=== PATIENT | female | born 1930 | race Caucasian/White ===

== ENCOUNTER 2019-03-21 08:53 | Inpatient (IN) | payer MEDICARE, OTHER ==
[2019-03-21] VITALS (7 sets, daily range): BP systolic 115–160; BP diastolic 59–82
[2019-03-21] MEDS ORDERED: LEXAPRO20 MG PO (09:00)
[2019-03-21] MEDS ORDERED: BACTRIM 400-801 TAB PO (09:00)
--- NOTE | 2019-03-21 09:07 | NUR ---
PT UNABLE TO ANSWER SUICIDE RISK SCREENING QUESTIONS.
--- NOTE | 2019-03-21 09:50 | NUR ---
CAREGIVER EXPRESSED THAT PT NEEDED TO VOID. FRACTURE BED MCKEON PROVIDED AND POSITIONED UNDER PT. CAREGIVER THEN REPORTED THAT SHE WOULD NOT VOID ON BED MCKEON AND REQUESTED IN AND OUT CATHETER. EDP NOTIFIED. ORDER FOR IN AND OUT CATHETER PLACED.
--- NOTE | 2019-03-21 11:05 | NUR ---
IN AND OUT CATHETER ATTEMPTED, NO URINE OUTPUT NOTED. EDP NOTIFIED.
[2019-03-21 11:53] LABS: BASOPHILS 0.2 % (0-2); EOSINOPHILS 0 % (0-7); HEMATOCRIT 37.5 % (36.0-48.0); HEMOGLOBIN 12.7 g/dL (12-16); IMMATURE GRANULOCYTES 0.5 % (0-5); MCH 29.7 pg (26.0-34.0); MCHC 33.9 g/dL (31.0-37.0); MCV 87.8 fL (80.0-100.0); MEAN PLATELET VOLUME 9.5 fL (7.4-10.4); MONOCYTES 5.4 % (2-11); NEUTROPHILS 88.9 % (40-80); PLATELET COUNT 278 10x3/uL (130-400); RBC 4.27 10x6/uL (4.00-5.40); RDW 15.9 % (11.5-14.5); WBC 12.1 10x3/uL (4.8-10.8)
[2019-03-21 12:05] LABS: ALBUMIN 3.1 g/dL (3.4-5.0); BILIRUBIN - TOTAL 0.36 mg/dL (0.2-1.3); CALCIUM 9.1 mg/dL (8.5-10.1); CARBON DIOXIDE 27.3 mmol/L (21.0-32.0); CREATININE - SERUM 0.9 mg/dL (0.6-1.3); POTASSIUM - SERUM 4.3 mmol/L (3.5-5.1); PROTEIN - SERUM 7.2 g/dL (6.4-8.2)
--- NOTE | 2019-03-21 12:07 | NUR ---
PT OBSERVED RESTING WITH EYES CLOSED, BREATHING IS SHALLOW, RR 25/MIN, SPO2 96% ON 2L NC. SON IS AT BEDSIDE. PAIN REASSESSED, PT STATES "SHE HAS NO PAIN AND IS COMFORTABLE." PT AND SON DENY FURTHER NEEDS AT THIS TIME, WILL CONTINUE TO MONITOR.
--- NOTE | 2019-03-21 14:31 | NUR ---
INCONTINENCE CARE PROVIDED FOR PT AND LINENS CHANGED. PT REPOSITIONED IN BED. PT STATES THAT SHE IS COMFORTABLE. WILL CONTINUE TO MONITOR.
--- NOTE | 2019-03-21 14:49 | NUR ---
REPOSITIONING OFFERED TO PT WELL TOILETING, PT STATES "I DO NOT NEED TO GO TO THE BATHROOM." PT ALSO REFUSED REPOSITIONING. SON STATES THAT HE "THINKS THE REST SHE IS GETTING IS GOOD FOR HER, AND DECLINES REPOSITIONING WELL."
--- NOTE | 2019-03-21 16:23 | NUR ---
PERICARE AND LINEN CHANGE FOLLOWING URINARY INCONTINENCE EPISODE.
--- NOTE | 2019-03-21 17:24 | NUR ---
PT RECIEVED FROM [facility]YK[facility] VIA TURNER TO RM 2120. PT IS ORIENTED TO SELF BUT DISORIENTED TO TIME AND SITUATION. SON AT BEDSIDE. NO SIGN OF DISTRESS AT THIS TIME.
--- NOTE | 2019-03-22 01:25 | NUR ---
RESTING WITH EYES CLOSED, RESPERATIONS EVEN, NO S/S DISTRESS NOTED.
[2019-03-22 04:00] VITALS: BP 126/66
--- NOTE | 2019-03-22 04:19 | NUR ---
I have reviewed this patient and I concur with the Shift Assessment completed by the Licensed Practical Nurse today this shift.
[2019-03-22 06:30] LABS: BASOPHILS 0.6 % (0-2); EOSINOPHILS 1.7 % (0-7); HEMATOCRIT 34.7 % (36.0-48.0); HEMOGLOBIN 11.6 g/dL (12-16); IMMATURE GRANULOCYTES 0.4 % (0-5); LYMPHOCYTES 12.4 % (15-50); MCH 29.4 pg (26.0-34.0); MCHC 33.4 g/dL (31.0-37.0); MCV 88.1 fL (80.0-100.0); MEAN PLATELET VOLUME 9.4 fL (7.4-10.4); MONOCYTES 7.2 % (2-11); NEUTROPHILS 77.7 % (40-80); PLATELET COUNT 255 10x3/uL (130-400); RBC 3.94 10x6/uL (4.00-5.40); RDW 16.3 % (11.5-14.5)
[2019-03-22 06:34] LABS: WBC 8.9 10x3/uL (4.8-10.8)
[2019-03-22 06:53] LABS: ANION GAP 14.9 mmol/L (8-16); CALCIUM 9.2 mg/dL (8.5-10.1); CARBON DIOXIDE 24.4 mmol/L (21.0-32.0); MAGNESIUM - SERUM 1.6 mg/dL (1.8-2.4); PHOSPHOROUS 3.6 mg/dL (2.5-4.9); POTASSIUM - SERUM 4.3 mmol/L (3.5-5.1); VANCOMYCIN - RANDOM 8.7 ug/mL (10.0-20.0)
[2019-03-22 08:19] VITALS: BP 146/66
[2019-03-22 10:22] LABS: % SATURATION 34 % (15-55); IRON 70 ug/dl (35-150); TOTAL IRON BIND CAPACITY 202 ug/dl (260-445); UNSAT IRON BIND CAPACITY 132 ug/dl (150-375)
[2019-03-22 12:12] VITALS: BMI 16.1
[2019-03-22 12:28] VITALS: BP 146/68
--- NOTE | 2019-03-22 14:55 | MORECARE ---
CASE MANAGEMENT DISCHARGE SUMMARY PATIENT: FLASH JOSE UNIT: [id number] ADM DATE: 03/21/19 AGE: 88 : [birth year] SEX: F ROOM/BED: D[place] [place] [facility] [place] AUTHOR: PAM DING PHYSICIAN: REFERRING PHYSICIAN: COLEEN PATEL MD DATE OF SERVICE: 03/22/19 Discharge Plan Patient Name: FLASH JOSE [facility] [facility] 1930 Planned Disposition: Other Type of Facility Anticipated Discharge Date: Discharge Date: Expected LOS: Initial Reviewer: [email or web address] Initial Review Date: 03/22/2019 Generated: 03/22/19 3:55 pm Patient Name: FLASH JOSE Page [phone] at 7371 All edits/amendments must be made on the electronic document DICTATION DATE: 03/22/191453 CORNER CUTTER MACHINE OPERATOR: SERGEI 03/22/19 1454 RPT#: [id number] DC DATE: STATUS: ADM IN [facility] [address] [place] [address] END OF REPORT
--- NOTE | 2019-03-22 15:03 | MORECARE ---
CASE MANAGEMENT DISCHARGE SUMMARY PATIENT: FLASH JOSE UNIT: [id number] ADM DATE: 03/21/19 AGE: 88 : [birth year] SEX: F ROOM/BED: D.2126 AUTHOR: PAM DING PHYSICIAN: REFERRING PHYSICIAN: COLEEN PATEL MD DATE OF SERVICE: 03/22/19 Discharge Plan Patient Name: FLASH JOSE Facility: [facility]:[place] : 1930 Planned Disposition: Other Type of Facility Anticipated Discharge Date: Discharge Date: Expected LOS: Initial Reviewer: [email or web address] Initial Review Date: 03/22/2019 Generated: 03/22/19 4:03 pm DCPIA - Discharge Planning Initial Assessment Updated by [email or web address]: Yamil Mc on 03/22/19 2:59 pm * Is the patient Alert and Oriented? Yes * How many steps to enter\exit or inside your home? NONE * PCP [facility] * Pharmacy [facility], * Preadmission Environment Memory Care * Other Environment [facility] * Facility Name [facility] [phone] * ADLs Partial Dependent * Partial ADLs (Assistance needed) Bathing Medication Management * Equipment Rolling Walker Walker Wheelchair * Other Equipment NO MEDICAL EQUIPMENT PROVIDER PREFERENCE * List name and contact numbers for known caregivers / representatives who currently or will assist patient after discharge: SON JOSE, SON/POA, * Verbal permission to speak to the caregivers and representatives has been obtained from the patient. N/A * Community resources currently utilized Home Health * Please name any agencies selected above. [facility] * Can the patient safely return to the preadmission environment? Yes * Has this patient been hospitalized within the prior 30 days at any hospital? No Last DP export: 03/22/19 1:55 p Patient Name: FLASH JOSE Page [phone] at 1503 All edits/amendments must be made on the electronic document DICTATION DATE: 03/22/19 1502 PHYSICIAN ADVISOR: SERGEI 03/22/19 1502 RPT#: [id number] DC DATE: STATUS: ADM IN [facility] [address] [place] [address] END OF REPORT
--- NOTE | 2019-03-22 15:20 | MORECARE ---
CASE MANAGEMENT DISCHARGE SUMMARY PATIENT: FLASH JOSE UNIT: [id number] ADM DATE: 03/21/19 AGE: 88 : [birth year] SEX: F ROOM/BED: D[facility] AUTHOR: PAM DING PHYSICIAN: REFERRING PHYSICIAN: COLEEN PATEL MD DATE OF SERVICE: 03/22/19 Discharge Plan Patient Name: FLASH JOSE Facility[facility] : 1930 Planned Disposition: Other Type of Facility Anticipated Discharge Date: Discharge Date: Expected LOS: Initial Reviewer: [email or web address] Initial Review Date: 03/22/2019 Generated: 03/22/19 4:20 pm DCPIA - Discharge Planning Initial Assessment Updated by [email or web address]: Yamil Mc on 03/22/19 3:15 pm * Is the patient Alert and Oriented? Yes * How many steps to enter\exit or inside your home? NONE * [facility] * Pharmacy [facility], * Preadmission Environment Memory Care * Other Environment [facility] * Facility Name [facility] [phone] * ADLs Partial Dependent * Partial ADLs (Assistance needed) Bathing Medication Management * Equipment Rolling Walker Walker Wheelchair * Other Equipment NO MEDICAL EQUIPMENT PROVIDER PREFERENCE * List name and contact numbers for known caregivers / representatives who currently or will assist patient after discharge: SON JOSE, SON/POA, * Verbal permission to speak to the caregivers and representatives has been obtained from the patient. N/A * Community resources currently utilized Home Health * Please name any agencies selected above. [facility] * Additional services required to return to the preadmission environment? No * Can the patient safely return to the preadmission environment? Yes * Has this patient been hospitalized within the prior 30 days at any hospital? No Last DP export: 03/22/19 2:03 p Patient Name: FLASH JOSE Page [phone] at 1520 All edits/amendments must be made on the electronic document DICTATION DATE: 03/22/19 1520 RECORDS AND TAPE RECORDINGS ENGINEER: SERGEI 03/22/19 1520 RPT#: [id number] DC DATE: STATUS: ADM IN [facility] [address] [facility] [place] [address] END OF REPORT
--- NOTE | 2019-03-22 15:30 | MORECARE ---
CASE MANAGEMENT DISCHARGE SUMMARY PATIENT: FLASH JOSE UNIT: [id number] ADM DATE: 03/21/19 AGE: 88 : [birth year] SEX: F ROOM/BED: D.2072 AUTHOR: TIMUR,DOC PHYSICIAN: REFERRING PHYSICIAN: COLEEN PATEL MD DATE OF SERVICE: 03/22/19 Discharge Plan Patient Name: FLASH JOSE Facility: [facility]:[place] : 1930 Planned Disposition: Other Type of Facility Anticipated Discharge Date: Discharge Date: Expected LOS: Initial Reviewer: [email or web address] Initial Review Date: 03/22/2019 Generated: 03/22/19 4:30 pm Comments DCP- Discharge Planning Updated by [email or web address]: Yamil Mc on 03/22/19 2:[address] Patient Name: FLASH JOSE Admission Status: ER Accout number: [id number] Admission Date: 03-21-2019 : 1930 Admission Diagnosis: Attending: COLEEN PATEL Current LOS: 1 Anticipated DC Date: Planned Disposition: Other Type of Facility Primary Insurance: MEDICARE PART A ONLY PLANNED EXTERNAL PROVIDER: [facility] Discharge Planning Comments: CM MET WITH PT AND SON IN ROOM TO DISCUSS DISCHARGE PLANNING AND NEEDS. PT 'S SON, SON JOSE, IS PT'S POWER OF EMAIL PRODUCTION SPECIALIST. PT IS LIVING AT THE [facility]. PT HAS WHEELCHAIR THAT SHE HAS BEEN USING AND A STANDARD AND ROLLATOR WALKER THAT THEY HAVE BEEN TRYING TO WORK PT BACK TO USING. PT HAS NO MEDICAL EQUIPMENT PROVIDER PREFERENCE. PT HAS HOME HEALTH FOR OCCUPATIONAL AND PHYSICAL THERAPY FROM [facility]. CM DISCUSSED AVAILABILTY OF REHAB SERVICES AND MEDICAL EQUIPMENT. PT'S SON DENIES DISCHARGE NEEDS, REPORTS PT WILL RETURN TO THE [facility], HE WILL TRANSPORT. PT WILL RESUME WITH [facility]. CHOICE SIGNED FOR [facility]. CM RECEIVED MESSAGE FROM ELVIA COBB OF THE [facility], , STATING THAT PT MAY RETURN TO [facility] AT DISCHARGE, IF DISCHARGED AFTER 03-24-19. PT WILL REQUIRE RE ASSESSMENT FROM THE [facility]. FOR DISCHARGE, NURSE REPORT TO BE CALLED TO THE REPLACED BY [facility] AT [phone]; FAX DISCHARGE INFORMATION TO THE [facility] AT [phone]. NOTIFY [facility] AT [phone], FAX DISCHARGE INFORMATION TO [facility] AT [phone]. Machinist Mate: Yamil Mc DCPIA - Discharge Planning Initial Assessment Updated by [id number]: Yamil Mc on 03/22/19 3:15 pm * Is the patient Alert and Oriented? Yes * How many steps to enter\exit or inside your home? NONE * PCP [facility] * Pharmacy [facility], * Preadmission Environment Memory Care * Other Environment [facility] * Facility Name [facility] [phone] * ADLs Partial Dependent * Partial ADLs (Assistance needed) Bathing Medication Management * Equipment Rolling Walker Walker Wheelchair * Other Equipment NO MEDICAL EQUIPMENT PROVIDER PREFERENCE * List name and contact numbers for known caregivers / representatives who currently or will assist patient after discharge: SON JOSE, SON/POA, * Verbal permission to speak to the caregivers and representatives has been obtained from the patient. N/A * Community resources currently utilized Home Health * Please name any agencies selected above. [facility] * Additional services required to return to the preadmission environment? No * Can the patient safely return to the preadmission environment? Yes * Has this patient been hospitalized within the prior 30 days at any hospital? No External Providers [facility] Next Contact Date: 03/22/2019 Service Request Date: Service Type: Resolution: Reviewer: Comments: Coverage Notice Reviewer: [email or web address] - Yamil Mc Notice Issued Date-Time: 03/22/2019 12:45 Notice Type: Patient Choice Letter Notice Delivered To: Family Member Relationship to Patient: Son Mental Health Clinician Name: SON JOSE Delivery Method: HAND - Hand Delivered Adelita Days: Prior Verbal Notification: Recipient Understood Notice: Yes Recipient Signature: Yes Med Rec Note Co-signed by Attending: Coverage Notice Comment: [facility] Last DP export: 03/22/19 2:20 p Patient Name: FLASH JOSE Page [phone] at 1530 All edits/amendments must be made on the electronic document DICTATION DATE: 03/22/19 1520 PROFESSOR OF THEATRE: SERGEI 03/22/19 1529 RPT#: [id number] DC DATE: STATUS: ADM IN [facility] [address] [place] [address] END OF REPORT
--- NOTE | 2019-03-22 15:51 | NUR ---
I have reviewed this patient and I concur with the Shift Assessment completed by the Licensed Practical Nurse today this shift.
[2019-03-22 16:14] VITALS: BP 182/77
--- NOTE | 2019-03-22 17:23 | NUR ---
SON AT SIDE. WITHOUT DISTRESS NOTED AT THIS TIME.
--- NOTE | 2019-03-22 19:33 | NUR ---
ASSESSMENT COMPLETE, PT ALERT WITH CONFUSION. ORIENTED TO SELF. IV TO RIGHT FOREARM WITH NS INFUSING AT KVO. IV SITE CLEAN AND DRY. REPLACED TELEMERTY PATCHES. PT DENIES NEEDS. BED LOW, CL IN REACH. BED ALARM IN USE.
[2019-03-22 20:00] VITALS: BP 157/69
--- NOTE | 2019-03-22 21:43 | NUR ---
PT VERY AGITATED AND UP, THROWING HER BLANKETS OFF OF THE BED AND HER FEET OVER THE SIDE RAILS. IV OUT, TIP INTACT. PT WONT EVEN ALLOW TO HAVE DRSG REMOVED THAT WAS OVER PIV. TRIED TO RESITE IV AND PT YELLING TO LEAVE HER ALONE AND GET OUT AND NOT TO COME BACK. WILL ATTEMPT TO RESITE IV LATER.
--- NOTE | 2019-03-22 23:29 | NUR ---
PTS PIV HAD COME OUT EARLIER. PT VERY AGITATED AND WONT LET ANY ONE RESITE IV. WHEN TRYING TO TOUCH PT, PT SLAPS AT NURSING STAFF AND TELL US TO LEAVE HER ALONE AND GET OUT OF HER ROOM.
--- NOTE | 2019-03-23 01:10 | NUR ---
ATTEMPTED TO RESITE IV AGAIN, PT STATED NO, AND FOR ME TO GO BACK TO MY KITCHEN.
--- NOTE | 2019-03-23 02:31 | NUR ---
I have reviewed this patient and I concur with the Shift Assessment completed by the Licensed Practical Nurse today this shift.
[2019-03-23 03:21] VITALS: BP 157/69; BMI 17.2
[2019-03-23 04:00] VITALS: BP 169/85
--- NOTE | 2019-03-23 04:48 | NUR ---
ATTEMPTED ONE MORE TIME TO SITE A PIV, PT RAISED ARM BACK AND STATED " YOU GET OUT OF HERE OR IM GOING TO SLAP YOU OUT OF THIS CLOSET" TRIED TO EXPLAIN TO PT THAT SHE IS SICK AND I NEED TO GET AN IV TO GIVE HER ANTIBIOTICS, PT TOLD ME TO SHUT UP AND GET OUT, AND TO QUIT TOUCHING HER.
--- NOTE | 2019-03-23 07:32 | NUR ---
AM ROUNDS- PT CONFUSED AT THIS TIME. REPOSITIONED HER IN BED, BEDSIDE RAILS X2, CALL LIGHT IN REACH, NAD NOTED, WILL CONTINUE PLAN OF CARE.
--- NOTE | 2019-03-23 09:40 | NUR ---
PT CONFUSED AND WILL NOT ALLOW THIS NURSE TO START A NEW IV, SO SHE CAN GET ANTIBIOTICS, SHE WILL ALSO NOT WEAR HER HEART MONITOR. CAREGIVER AT BEDSIDE, CALL LIGHT IN REACH, NAD NOTED, WILL CONTINUE TO MONITOR.
[2019-03-23 11:40] VITALS: BP 106/68
--- NOTE | 2019-03-23 12:16 | NUR ---
WENT TO SEE IF PT WOULD ALLOW THIS NURSE TO START HER IV. PT RESTING COMFORTABLY IN BED, WILL LET PT SLEEP AND TRY AGAIN LATER, CAREGIVER AT BEDSIDE, CALL LIGHT IN REACH, NAD NOTED, WILL CONTINUE TO MONITOR.
--- NOTE | 2019-03-23 12:30 | NUR ---
NEW 20G IV STARTED TO RT FA X1 STICK. PT DOES NOT WANT TO EAT LUNCH RIGHT NOW. ALSO CLEANED PT UP FROM INCONT EPIOSODE, PT DENIES ANY OTHER NEEDS AT THIS TIME. CALL LIGHT IN REACH, BED ALARM ON, NAD NOTED, WILL CONTINUE TO MONITOR.
[2019-03-23 18:36] VITALS: BP 101/72
--- NOTE | 2019-03-23 19:00 | NUR ---
PATIENT LAYING IN BED. SON AT BEDSIDE. PATIENT HAS NO COMPLAINTS AT THIS TIME. NO DISTRESS AT THIS TIME.
[2019-03-23 20:00] VITALS: BP 107/74
--- NOTE | 2019-03-24 00:38 | NUR ---
PATIENT LAYING IN BED, EYES CLOSED, CHEST RISING AND FALLING. NO DISTRESS NOTED.
[2019-03-24 04:00] VITALS: BP 122/71
--- NOTE | 2019-03-24 04:02 | NUR ---
I have reviewed this patient and I concur with the Shift Assessment completed by the Licensed Practical Nurse today this shift.
--- NOTE | 2019-03-24 07:10 | NUR ---
REPORT RECEIVED FROM COLLATERAL SPECIALIST AND PATIENT CARE ASSUMED. PATIENT ALYING IN BED ON BACK WITH EYES CLOSED AND BREATHING EVENLY. PATIENT IS STABLE AND VSS. WILL CONTINUE WITH PLAN OF CARE. SR UP X 2 BED IN LOW POSITION AND CALL LIGHT IN REACH.
[2019-03-24 07:18] LABS: FOLATE (FOLIC ACID) - SERUM 18.1 ng/mL (>3.0)
[2019-03-24 08:10] VITALS: BP 132/68
--- NOTE | 2019-03-24 09:07 | NUR ---
PATIENT AWAKE, ALERT AND CONFUSED. PATIENT DENIES ANY NEEDS OR PAIN. ASSESSMENT COMPLETED. CLASSIFICATION AND TREATMENT DIRECTOR IN ROOM . PATIENT IS STABLE AND VSS. WILL CONTINUE TO MONITOR. SR UP X 2 BED IN LOW POSITION AND CALL LIGHT IN REACH.
[2019-03-24 10:31] VITALS: BMI 17.2
[2019-03-24 11:37] VITALS: BP 123/58
--- NOTE | 2019-03-24 13:18 | NUR ---
PATIENT LAYING IN BED ON BACK WITH HOB ELEVATED 30 DEGREES. CAREGIVER IN ROOM AND STATES PATIENT HAS BEEN SLEEPING ALOT TODAY. PATIENT AROUSES EASILY TO VOICE BUT RETURNS TO SLEEPING. PATIENT REPOSITONED FOR COMFORT. WILL CONTINUE TO MONITOR. SR UP X 2 BED IN LOW POSITION AND CALL LIGHT IN REACH.
[2019-03-24 14:38] VITALS: BP 130/64
--- NOTE | 2019-03-24 14:50 | NUR ---
PATIENT HAD FIRST VOID TODAY. INCONTINENT AND UNABLE TO OBTAIN URINE SPECIMEN. POST VOID SCAN SHOWED [address] PATEL . NEW ORDER RECEIVED FOR PEREA CATHETER. PEREA CATHETER PLACED WITHOUT DIFFICULTY AND PATIENT TOLERATED WELL. 4OO ML CLEAR YELLOW URINE DRAINED. PATIENT DENIES ANY NEEDS OR PAIN. WILL CONTINUE TO MONITOR.
--- NOTE | 2019-03-24 15:15 | NUR ---
Nutrition Follow Up: Pt was being fed by family member at the time of RD visit. Pt did not speak but family member reported that pt's po intake was improving today. Pt is drinking chocolate Ensure/Boost. Food preferences noted. Noted Calorie Count has been ordered. Diet: Regular PO Intake: 42% meal avg No BM since admit Wt stable Labs reviewed Meds noted including Megace Rec continue current diet. Will honor food preferences. RD following.
[2019-03-24 17:06] LABS: APPEARANCE CLEAR (CLEAR); BILIRUBIN NEGATIVE (NEGATIVE); COLOR YELLOW (YELLOW); GLUCOSE NEGATIVE (NEGATIVE); KETONE NEGATIVE (NEGATIVE); NITRITE NEGATIVE (NEGATIVE); PROTEIN NEGATIVE (NEGATIVE); SPECIFIC GRAVITY 1.015 (1.005-1.020); UROBILINOGEN NORMAL (NORMAL)
--- NOTE | 2019-03-24 18:08 | NUR ---
PATIENT LAYING IN BED AWAKE AND ALERT. ANSWERS QUESTIONS APPROPRIATELY. PATIENT SON AT BEDSIDE. PATIENT DENIES ANY NEEDS OR PAIN . PATIENT IS STABLE AND VSS. WILL CONTINUE TO MONITOR.SR UP X 2 BED IN LOW POSITION AND CALL LIGHT IN REACH.
--- NOTE | 2019-03-24 19:20 | NUR ---
PT ASLEEP. AROUSES TO VERBAL STIMULI. ALERT BUT HAS CONFUSION. PT BED LOW AND CALL LIGHT IN REACH. ALARM ON AND ACTIVE. PT DENIES ANY NEEDS. NO S/S OF DISTRESS. NAME AND DATE PLACED ON BOARD. WILL CPOC
[2019-03-24 20:00] VITALS: BP 164/50
--- NOTE | 2019-03-24 23:00 | NUR ---
NIGHT MEDICATIONS GIVEN. PT COUGHING WHEN ATTEMPTING TO TAKE TYLENOL. PT IS ALERT TO NAME AND , UNABLE TO TELL NURSE WHERE SHE IS, STATES YEAR IS 2013 PT HAS BRUISES AND SKIN TEARS ON ARMS AND LEGS. PT BRIT NOTED. FIXED STAT LOCK NO KINKS OR LOOPS. PT HAS CRACKLES. COUGHING AND STATES IT IS NOT PRODUCTIVE. NURSE HAS NOT SEEN ANY PRODUCTION. EXHALE IS COURSE PT HAS CALL LIGHT IN REACH. REFUSES TO LET NURSE CLEAN DENTURES. BEDALARM ON AND ACTIVE. WILL CPOC
[2019-03-25] VITALS: BP 156/65
--- NOTE | 2019-03-25 05:30 | NUR ---
PT REFUSING TYLENOL THIS MORNING. PT HAS NO S/S OF DISTRESS. REPOSITIONED IN BED. PT BED LOW AND CALL LIGHT IN REACH. ALARM ON AND ACTIVE. PT IS CONFUSED. ALERT TO NAME AND ONLY. WILL CPOC
--- NOTE | 2019-03-25 07:10 | NUR ---
REPORT RECEIVED FROM WHEEL AND CASTER REPAIRER AND PATIENT CARE ASSUMED. PATIENT LAYING IN BED ON RT SIDE WITH EYES CLOSED AND BREATHING EVENLY. PATIENT IS STABLE AND VSS. WILL CONTINUE TO MONITOR. SR UP X 2 BED IN LOW POSITION AND CALL LIGHT IN REACH.
[2019-03-25 08:18] VITALS: BP 136/82
[2019-03-25 11:51] VITALS: BP 124/64
--- NOTE | 2019-03-25 13:31 | NUR ---
PATIENT LAYING IN BED ON BACK AWAKE, ALERT AND ORIENTED X 3. PATIENT DENIES ANY NEEDS OR PAIN. RT GROIN DRSG C/D/I. WILL CONTINUE TO MONITOR. SR UP X 2 BED IN LOW POSITION AND CALL LIGHT IN REACH.
--- NOTE | 2019-03-25 13:51 | NUR ---
Nutrition Calorie Count: kcalg protein Breakfast 03/24/19:320 6 Dinner 03/24/19:84254 Breakfast 03/25/19:78040 Total for 24 hours:1078 kcal and 37 g protein Rec continue current diet, supplement regimen. Will continue to honor food preferences. RD following.
--- NOTE | 2019-03-25 14:38 | NUR ---
REHAB PRESCREENING Rehab referral received and chart reviewed. This patient is very low level right now with PT and continues to have confusion. Rehab will follow this patient for admission criteria. Thank you for this referral! Donna Everett, FASHION COORDINATOR Rehab PD
[2019-03-25 15:22] VITALS: BP 133/76
--- NOTE | 2019-03-25 19:15 | NUR ---
RECEIVED REPORT, WILL ASSUME CARE OF PT, DENIES ANY NEEDS AT THIS TIME, BED IS LOW, SRX2, CALL LIGHT IN REACH, WILL CONTINUE PLAN OF CARE
[2019-03-25 20:00] VITALS: BP 139/58
--- NOTE | 2019-03-25 22:30 | NUR ---
PT IS SLEEPING, NO DISTRESS NOTICED AT THIS TIME, BED IS LOW, SRX2, CALL LIGHT IN REACH, WILL CONTINUE PLAN OF CARE
[2019-03-26] VITALS: BP 148/66
--- NOTE | 2019-03-26 01:14 | NUR ---
SLEEPING, BED IS LOW, SRX2, CALL LIGHT IN REACH, ALARM IS ON, WILL CONTINUE PLAN OF CARE
--- NOTE | 2019-03-26 02:18 | NUR ---
I have reviewed this patient and I concur with the Shift Assessment completed by the Licensed Practical Nurse today this shift.
--- NOTE | 2019-03-26 04:33 | NUR ---
CRUSHED TYLENOL PLACED IN APPLESAUCE
--- NOTE | 2019-03-26 04:39 | NUR ---
AT NURSING STATION BEVERLEY BANEGAS AND GOEVANNA, ASSISTED PT WITH A CLEAN GOWN
[2019-03-26 05:03] LABS: BASOPHILS 0.2 % (0-2); EOSINOPHILS 2.5 % (0-7); HEMATOCRIT 36.9 % (36.0-48.0); HEMOGLOBIN 12.4 g/dL (12-16); IMMATURE GRANULOCYTES 0.3 % (0-5); LYMPHOCYTES 6.9 % (15-50); MCH 29.6 pg (26.0-34.0); MCHC 33.6 g/dL (31.0-37.0); MCV 88.1 fL (80.0-100.0); MEAN PLATELET VOLUME 9.6 fL (7.4-10.4); MONOCYTES 2.9 % (2-11); NEUTROPHILS 87.2 % (40-80); PLATELET COUNT 304 10x3/uL (130-400); RBC 4.19 10x6/uL (4.00-5.40); RDW 16.1 % (11.5-14.5)
[2019-03-26 05:21] LABS: CALC OSMOLALITY 274 mosm/kg (275-300); CARBON DIOXIDE 27.7 mmol/L (21.0-32.0); CHLORIDE - SERUM 101 mmol/L (98-107); CREATININE - SERUM 0.7 mg/dL (0.6-1.3); GLUCOSE 91 mg/dL (74-106); POTASSIUM - SERUM 3.5 mmol/L (3.5-5.1); SODIUM 137 mmol/L (136-145); UREA NITROGEN 14 mg/dL (7-18); eGFR NON AFRICAN AMERICAN 83 mL/min (90-120)
--- NOTE | 2019-03-26 07:05 | NUR ---
RECEIVED REPORT FROM [facility] AND [facility]. IV IS OUT WITH SOME EDEMA NOTED TO RIGHT ARM. RESTARTED X1 STICK WITH 20 GUAGE WITH GOOD BLOOD RETURN AND WAS SECURED. SHE IS CONFUSED BUT DOES STATE HER NAME. PEREA CATH IS PATENT WITH SHARYN URINE DRAINING. O2 REPLACED AND SHE WAS REPOSITIONED IN HER BED FOR COMFORT. RESP EVEN WITHOUT LABOR.
--- NOTE | 2019-03-26 07:10 | NUR ---
IV SITE D/C WITH CATH TIP INTACT WITH MINIMAL BLEEDING NOTED.
--- NOTE | 2019-03-26 09:30 | NUR ---
SON AT BEDSIDE. SHE CAN DRINK BUT DOES COUGH AT TIMES. BBS ARE CLEAR. IV SITE IS CLEAR AND INFUSING. F/C IS PATENT WITH SHARYN URINE DRAINING. ABLE TO HELP ROLL OVER AND IS REPOSITIONED OFTEN. SHE IS CONFUSED BUT DENIES PAIN AND FACE IS RELAXED.
--- NOTE | 2019-03-26 11:29 | NUR ---
Nutrition Calorie Count: kcalg protein Lunch 03/25/19:97866 Dinner 03/25/19:22577 Breakfast 03/26/19:64122 Total for 24 hour period:1769 kcal70 g protein Pt with much improved po intake. Rec continue current diet and appetite stimulant. RD following.
[2019-03-26 11:37] VITALS: BP 122/64
--- NOTE | 2019-03-26 14:00 | NUR ---
REPOSITIONED AT THIS TIME BEL WELL. SHE DID TAKE PILLS WHOLE WITH CUES TO SWALLOW NO COUGHING NOTED. SON AT BEDSIDE. STATES HER CONFUSION IS A LITTLE WORSE TODAY BUT SHE COMES AND GOES. RESP EVEN WITHOUT LABOR. CONTINUE TO MONITOR SHE HAS 1ST DOSE OF VANCOMYCIN INFUSING AT THIS TIME DUE TO WAITING ON TROUGH TO RESULT. NOTIFIED LAB TWICE ONCE TO COME DRAW LEVEL AND ONCE TO RESULT IT.
[2019-03-26 16:44] VITALS: BP 115/54
--- NOTE | 2019-03-26 18:05 | NUR ---
SON CAME OUT TO DESK AND WANTED HER TO HAVE ANOTHER SET OF VITALS DONE. HER LUNG SOUNDS HAVE CHANGED AND NOW HAVE CRACKLES AND RHONCHI IN BOTH UPPER CANCHOLA. PULSE IS 103 RESP ARE 30. O2 SAT IS 94% ON OXYGEN AND TEMP 100.1. NOTIFIED DR PATEL AT THIS TIME AND NEW ORDER FOR STAT CXR AND ABG. SON IS AWARE OF ORDER. HE FED HER SUPPER BUT NOTICED HER RESP STARTED TO INCREASE SLOWLY AFTER EATING. SHE IS AWAKE AND ALERT.
--- NOTE | 2019-03-26 18:30 | NUR ---
ABG RESULTS CALLED TO DR PATEL AT THIS TIME. NEW ORDER FOR LACTIC ACID. NOTIFIED RADIOLOGY TO DO CXR STAT AND CALL HIM WITH RESULTS. SON IS HERE AND AWARE OF NEW ORDER AND RESULTS.
--- NOTE | 2019-03-26 18:45 | NUR ---
SHE IS BREATHING EASIER WITH RESP OF 18 AT THIS TIME. SON IS GOING HOME BUT ONCOMING NURSE HAS HIS NUMBER IF NEEDED. BBS STILL HAVE CRACKLES IN UPPER LOBES. SHE IS ALERT AND DENIES PAIN.
--- NOTE | 2019-03-26 19:31 | NUR ---
RECIEVED UP IN BED WITH EYES OPEN. SON CAME TO NURSES STATION AND ASKED IF HE COULD BE CALLED WITH CX RAY RESULTS. PT IS ALERT AND CONFUSED. ORIENTED TO NAME ONLY. NO S/S OF DISTRESS OBSERVED. IV TO LT FA AT TKO. O2@ 2 LITERS PER N/C. F/C INTACT AND DRAINING CLEAR YELLOW URINE TO BEDSIDE DRAINAGE SYSTEM.
[2019-03-26 20:00] VITALS: BP 126/67
[2019-03-27] VITALS: BP 134/60
[2019-03-27 04:00] VITALS: BP 157/66
[2019-03-27 05:53] LABS: BASOPHILS 0.2 % (0-2); HEMATOCRIT 31.3 % (36.0-48.0); HEMOGLOBIN 10.4 g/dL (12-16); IMMATURE GRANULOCYTES 0.3 % (0-5); LYMPHOCYTES 8.2 % (15-50); MCH 29.4 pg (26.0-34.0); MCHC 33.2 g/dL (31.0-37.0); MCV 88.4 fL (80.0-100.0); MEAN PLATELET VOLUME 9.6 fL (7.4-10.4); MONOCYTES 4.1 % (2-11); NEUTROPHILS 86.2 % (40-80); PLATELET COUNT 276 10x3/uL (130-400); RBC 3.54 10x6/uL (4.00-5.40); RDW 16.5 % (11.5-14.5); WBC 11.4 10x3/uL (4.8-10.8)
[2019-03-27 06:14] LABS: CALC OSMOLALITY 274 mosm/kg (275-300); CALCIUM 8.4 mg/dL (8.5-10.1); CARBON DIOXIDE 25.7 mmol/L (21.0-32.0); CHLORIDE - SERUM 104 mmol/L (98-107); CREATININE - SERUM 0.7 mg/dL (0.6-1.3); GLUCOSE 99 mg/dL (74-106); POTASSIUM - SERUM 3.6 mmol/L (3.5-5.1); SODIUM 137 mmol/L (136-145); UREA NITROGEN 16 mg/dL (7-18); eGFR NON AFRICAN AMERICAN 83 mL/min (90-120)
[2019-03-27 07:46] VITALS: BP 151/69
[2019-03-27 11:46] VITALS: BP 127/58
--- NOTE | 2019-03-27 15:13 | NUR ---
Rehab Note- The patient continues to be too low level at this time for inpatient acute rehab. WIll continue to follow for increased progress. Thank you for this referral! Becky Pruett RN Clinical Liaison, [facility] Rehab
[2019-03-27 15:21] VITALS: BP 131/55
--- NOTE | 2019-03-27 17:59 | NUR ---
RESTING WITH EYES CLOSED. NO SIGNS OF DISTRESS. CONTINUE PLAN OF CARE AND SAFETY PRECAUTIONS.
--- NOTE | 2019-03-27 19:42 | NUR ---
RECIEVED UP IN BED WITH HOB ELEVATED. ALERT AND ORIENTED TO NAME ONLY. O2@ 2 LITERS PER N/C IN PLACE. IV TO LEFT FA WITH NS AT 30CC/HR. F/C INTACT WITH CLEAR YELLOW URINE DRAINING TO BEDSIDE DRAINAGE SYSTEM. NO S/S OF DISTRESS OBSERVED. GAVE SEVERAL DRINKS OF WATER WITH NO COUGHING.
[2019-03-27 20:00] VITALS: BP 146/75
[2019-03-28 00:11] VITALS: BP 142/70
[2019-03-28 04:00] VITALS: BP 132/72
[2019-03-28 06:24] LABS: BASOPHILS 0.1 % (0-2); EOSINOPHILS 1.6 % (0-7); HEMOGLOBIN 10.6 g/dL (12-16); IMMATURE GRANULOCYTES 0.2 % (0-5); LYMPHOCYTES 9.2 % (15-50); MCH 29.5 pg (26.0-34.0); MCHC 33.1 g/dL (31.0-37.0); MCV 89.1 fL (80.0-100.0); MEAN PLATELET VOLUME 9.6 fL (7.4-10.4); MONOCYTES 6.1 % (2-11); NEUTROPHILS 82.8 % (40-80); PLATELET COUNT 324 10x3/uL (130-400); RBC 3.59 10x6/uL (4.00-5.40); RDW 16.8 % (11.5-14.5); WBC 9.9 10x3/uL (4.8-10.8)
[2019-03-28 06:41] LABS: CALC OSMOLALITY 274 mosm/kg (275-300); CALCIUM 8.8 mg/dL (8.5-10.1); CARBON DIOXIDE 28.6 mmol/L (21.0-32.0); CHLORIDE - SERUM 103 mmol/L (98-107); CREATININE - SERUM 0.7 mg/dL (0.6-1.3); GLUCOSE 100 mg/dL (74-106); MAGNESIUM - SERUM 1.4 mg/dL (1.8-2.4); POTASSIUM - SERUM 3.5 mmol/L (3.5-5.1); SODIUM 138 mmol/L (136-145); UREA NITROGEN 11 mg/dL (7-18); eGFR NON AFRICAN AMERICAN 83 mL/min (90-120)
--- NOTE | 2019-03-28 08:38 | NUR ---
CONFUSED. NO NEEDS VOICED OR NOTED. LEFT BACK BRUISED FROM FALL AT HOME. 02 AT 2 L/M PER NC. PEREA CATH PATENT TO GRAVITY BAG. UP WITH ASSIST. WILL MONITOR.
[2019-03-28 09:01] VITALS: BP 176/65
--- NOTE | 2019-03-28 10:15 | MORECARE ---
CASE MANAGEMENT DISCHARGE SUMMARY PATIENT: FLASH JOSE UNIT: [id number] ADM DATE: 03/21/19 AGE: 88 : [birth year] SEX: F ROOM/BED: D.2126 AUTHOR: TIMUR,DOC PHYSICIAN: REFERRING PHYSICIAN: COLEEN PATEL MD DATE OF SERVICE: 03/28/19 Discharge Plan Patient Name: FLASH JOSE Facility: [facility]:[place] : 1930 Planned Disposition: Other Type of Facility Anticipated Discharge Date: Discharge Date: Expected LOS: Initial Reviewer: [id number] Initial Review Date: 03/22/2019 Generated: 03/28/19 11:15 am Comments DCP- Discharge Planning Updated by [id number]: Yamil Mc on 03/28/19 9:[address] Patient Name: FLASH JOSE Encounter No: [id number] : 1930 Primary Insurance: MEDICARE PART A ONLY Anticipated DC Date: Planned Disposition: Other Type of Facility External Planned Provider: [facility]; [facility] RESUMPTION Discharge Planning Comments: CHART REVIEW COMPLETED; PT WILL REQUIRE RE ASSESSMENT FROM [facility]. CM FAXED UPDATE TO [facility] AT [phone] [facility] AT [phone] FOR DISCHARGE, NURSE REPORT TO BE CALLED TO THE [facility] AT [phone]; FAX DISCHARGE INFORMATION TO THE [facility] AT [phone]. NOTIFY [facility] AT [phone], FAX DISCHARGE INFORMATION TO [facility] AT [phone]. Tin Recovery Worker: Yamil Mc DCP- Discharge Planning Updated by [id number]: Yamil Mc on 03/22/19 2:[address] Patient Name: FLASH JOSE Admission Status: ER Accout number: [id number] Admission Date: 03-21-2019 : 1930 Admission Diagnosis: Attending: COLEEN PATEL Current LOS: 1 Anticipated DC Date: Planned Disposition: Other Type of Facility Primary Insurance: MEDICARE PART A ONLY PLANNED EXTERNAL PROVIDER: [facility] Discharge Planning Comments: CM MET WITH PT AND SON IN ROOM TO DISCUSS DISCHARGE PLANNING AND NEEDS. PT 'S SON, SON JOSE, IS PT'S POWER OF STRIP TANK TENDER. PT IS LIVING AT THE [facility]. PT HAS WHEELCHAIR THAT SHE HAS BEEN USING AND A STANDARD AND ROLLATOR WALKER THAT THEY HAVE BEEN TRYING TO WORK PT BACK TO USING. PT HAS NO MEDICAL EQUIPMENT PROVIDER PREFERENCE. PT HAS HOME HEALTH FOR OCCUPATIONAL AND PHYSICAL THERAPY FROM [facility]. CM DISCUSSED AVAILABILTY OF REHAB SERVICES AND MEDICAL EQUIPMENT. PT'S SON DENIES DISCHARGE NEEDS, REPORTS PT WILL RETURN TO THE [facility], HE WILL TRANSPORT. PT WILL RESUME WITH [facility]. CHOICE SIGNED FOR [facility]. CM RECEIVED MESSAGE FROM ELVIA COBB OF THE [facility], , STATING THAT PT MAY RETURN TO [facility] AT DISCHARGE, IF DISCHARGED AFTER 03-24-19. PT WILL REQUIRE RE ASSESSMENT FROM THE [facility]. FOR DISCHARGE, NURSE REPORT TO BE CALLED TO THE [facility] AT [phone]; FAX DISCHARGE INFORMATION TO THE [facility] AT [phone]. NOTIFY [facility] AT [phone], FAX DISCHARGE INFORMATION TO [facility] AT [phone]. Tin Recovery Worker: Yamil Mc DCPIA - Discharge Planning Initial Assessment Updated by [id number]: Yamil Mc on 03/22/19 3:15 pm * Is the patient Alert and Oriented? Yes * How many steps to enter\exit or inside your home? NONE * PCP [facility] * Pharmacy [facility], * Preadmission Environment Memory Care * Other Environment [facility] * Facility Name [facility] [phone] * ADLs Partial Dependent * Partial ADLs (Assistance needed) Bathing Medication Management * Equipment Rolling Walker Walker Wheelchair * Other Equipment NO MEDICAL EQUIPMENT PROVIDER PREFERENCE * List name and contact numbers for known caregivers / representatives who currently or will assist patient after discharge: SON JOSE, SON/POA, * Verbal permission to speak to the caregivers and representatives has been obtained from the patient. N/A * Community resources currently utilized Home Health * Please name any agencies selected above. [facility] * Additional services required to return to the preadmission environment? No * Can the patient safely return to the preadmission environment? Yes * Has this patient been hospitalized within the prior 30 days at any hospital? No External Providers External Provider: [facility] Next Contact Date: 03/28/2019 Service Request Date: Service Type: Resolution: Reviewer: Comments: Coverage Notice Reviewer: [id number] - Yamil Mc Notice Issued Date-Time: 03/22/2019 12:45 Notice Type: Patient Choice Letter Notice Delivered To: Family Member Relationship to Patient: Son Surveillance Sensor Officer Name: SON JOSE Delivery Method: HAND - Hand Delivered Adelita Days: Prior Verbal Notification: Recipient Understood Notice: Yes Recipient Signature: Yes Med Rec Note Co-signed by Attending: Coverage Notice Comment: [facility] Last DP export: 03/22/19 2:30 p Patient Name: FLASH JOSE Page 10261 at 1015 All edits/amendments must be made on the electronic document DICTATION DATE: 03/28/19 1014 COMPRESSOR REPAIRER: SERGEI 03/28/19 1014 RPT#: [id number] DC DATE: STATUS: ADM IN [facility] [address] [place] [address] END OF REPORT
--- NOTE | 2019-03-28 10:50 | MORECARE ---
CASE MANAGEMENT DISCHARGE SUMMARY PATIENT: FLASH JOSE UNIT: [id number] ADM DATE: 03/21/19 AGE: 88 : [birth year] SEX: F ROOM/BED: D.2774 AUTHOR: TIMUR,DOC PHYSICIAN: REFERRING PHYSICIAN: COLEEN PATEL MD DATE OF SERVICE: 03/28/19 Discharge Plan Patient Name: FLASH JOSE Facility: [facility]:[place] : 1930 Planned Disposition: Other Type of Facility Anticipated Discharge Date: Discharge Date: Expected LOS: Initial Reviewer: [id number] Initial Review Date: 03/22/2019 Generated: 03/28/19 11:50 am Comments DCP- Discharge Planning Updated by [id number]: Yamil Mc on 03/28/19 9:[address] Patient Name: FLASH JOSE Encounter No: [id number] : 1930 Primary Insurance: MEDICARE PART A ONLY Anticipated DC Date: Planned Disposition: Other Type of Facility External [facility]; [facility] RESUMPTION Discharge Planning Comments: CHART REVIEW COMPLETED; PT WILL REQUIRE RE ASSESSMENT FROM [facility]. CM FAXED UPDATE TO [facility] AT [phone] AND [facility] AT [phone] FOR DISCHARGE, NURSE REPORT TO BE CALLED TO [facility] AT [phone]; FAX DISCHARGE INFORMATION TO [facility] AT [phone]. NOTIFY [facility] AT [phone], FAX DISCHARGE INFORMATION TO [place] AT [phone]. Construction Area Manager: Yamil Mc Appended by Yamil Mc on 03/28/2019 10:46 CDT: CM CALLED DAWNAL OF [facility], , REQUESTED RE ASSESSMENT FROM [facility]. CM FAXED UPDATE TO [facility] AT [phone]. FOR DISCHARGE, NURSE REPORT TO BE CALLED TO THE [facility] AT [phone]; FAX DISCHARGE INFORMATION TO [facility] AT [phone]. NOTIFY [facility] AT [phone], FAX DISCHARGE INFORMATION TO [place] AT [phone]. Construction Area Manager: Yamil Mc DCP- Discharge Planning Updated by [id number]: Yamil Mc on 03/22/19 2:[address] Patient Name: FLASH JOSE Admission Status: ER Accout number: [id number] Admission Date: 03-21-2019 : 1930 Admission Diagnosis: Attending: COLEEN PATEL Current LOS: 1 Anticipated DC Date: Planned Disposition: Other Type of Facility Primary Insurance: MEDICARE PART A ONLY PLANNED EXTERNAL PROVIDER: [facility] Discharge Planning Comments: CM MET WITH PT AND SON IN ROOM TO DISCUSS DISCHARGE PLANNING AND NEEDS. PT 'S SON, SON JOSE, IS PT'S POWER OF OPEN HEARTH FURNACE OPERATOR. PT IS LIVING AT THE [facility]. PT HAS WHEELCHAIR THAT SHE HAS BEEN USING AND A STANDARD AND ROLLATOR WALKER THAT THEY HAVE BEEN TRYING TO WORK PT BACK TO USING. PT HAS NO MEDICAL EQUIPMENT PROVIDER PREFERENCE. PT HAS HOME HEALTH FOR OCCUPATIONAL AND PHYSICAL THERAPY FROM [facility]. CM DISCUSSED AVAILABILTY OF REHAB SERVICES AND MEDICAL EQUIPMENT. PT'S SON DENIES DISCHARGE NEEDS, REPORTS PT WILL RETURN TO THE [facility], HE WILL TRANSPORT. PT WILL RESUME WITH [facility]. CHOICE SIGNED FOR [facility]. CM RECEIVED MESSAGE FROM ELVIA COBB OF THE [facility], , STATING THAT PT MAY RETURN TO [facility] AT DISCHARGE, IF DISCHARGED AFTER 03-24-19. PT WILL REQUIRE RE ASSESSMENT FROM THE [facility]. FOR DISCHARGE, NURSE REPORT TO BE CALLED TO THE [facility] AT [phone]; FAX DISCHARGE INFORMATION TO THE [facility] AT [phone]. NOTIFY [facility] AT [phone], FAX DISCHARGE INFORMATION TO [place] AT [phone]. Construction Area Manager: Yamil Mc DCPIA - Discharge Planning Initial Assessment Updated by [id number]: Yamil Mc on 03/22/19 3:15 pm * Is the patient Alert and Oriented? Yes * How many steps to enter\exit or inside your home? NONE * PCP [facility] * Pharmacy [facility], * Preadmission Environment Memory Care * Other Environment [facility] * Facility Name [facility] [phone] * ADLs Partial Dependent * Partial ADLs (Assistance needed) Bathing Medication Management * Equipment Rolling Walker Walker Wheelchair * Other Equipment NO MEDICAL EQUIPMENT PROVIDER PREFERENCE * List name and contact numbers for known caregivers / representatives who currently or will assist patient after discharge: SON JOSE, SON/POA, * Verbal permission to speak to the caregivers and representatives has been obtained from the patient. N/A * Community resources currently utilized Home Health * Please name any agencies selected above. [facility] * Additional services required to return to the preadmission environment? No * Can the patient safely return to the preadmission environment? Yes * Has this patient been hospitalized within the prior 30 days at any hospital? No External Providers External Provider[facility] Next Contact Date: 03/28/2019 Service Request Date: Service Type: Resolution: Reviewer: Comments: Coverage Notice Reviewer: [id number] Monet Mc Notice Issued Date-Time: 03/22/2019 12:45 Notice Type: Patient Choice Letter Notice Delivered To: Family Member Relationship to Patient: Son Audiovisual Tech Name: SON JOSE Delivery Method: HAND - Hand Delivered Adelita Days: Prior Verbal Notification: Recipient Understood Notice: Yes Recipient Signature: Yes Med Rec Note Co-signed by Attending: Coverage Notice Comment: [facility] Last DP export: 03/28/19 9:15 a Patient Name: FLASH JOSE Page 20898 at 1050 All edits/amendments must be made on the electronic document DICTATION DATE: 03/28/199 VENEER LATHE OPERATOR: SERGEI 03/28/19 1049 RPT#: [id number] NE DATE: STATUS: ADM IN [facility] [address] [place] [address] END OF REPORT
[2019-03-28 11:41] VITALS: BP 165/68
--- NOTE | 2019-03-28 15:58 | NUR ---
I have reviewed this patient and I concur with the Shift Assessment completed by the Licensed Practical Nurse today this shift.
--- NOTE | 2019-03-28 15:59 | MORECARE ---
CASE MANAGEMENT DISCHARGE SUMMARY PATIENT: FLASH JOSE UNIT: [id number] ADM DATE: 03/21/19 AGE: 88 : [birth year] SEX: F ROOM/BED: D.2546 AUTHOR: TIMUR,DOC PHYSICIAN: REFERRING PHYSICIAN: COLEEN PATEL MD DATE OF SERVICE: 03/28/19 Discharge Plan Patient Name: FLASH JOSE Facility: [facility]:[place] : 1930 Planned Disposition: Other Type of Facility Anticipated Discharge Date: 03/28/19 Discharge Date: Expected LOS: 7 Initial Reviewer: [id number] Initial Review Date: 03/22/2019 Generated: 03/28/19 4:59 pm Comments DCP- Discharge Planning Updated by [id number]: Yamil Mc on 03/28/19 2:[address] Patient Name: FLASH JOSE Encounter No: [id number] : 1930 Primary Insurance: MEDICARE PART A ONLY Anticipated DC Date: 03-28-2019 Planned Disposition: Other Type of Facility External Planned Provider: [facility] Discharge Planning Comments: CM SPOKE TO PT 'S SON, SON JOSE, WHO IS IN AGREEMENT WITH [facility], [facility]. CM CALLED AND SOPKE TO MONICA OF THE [facility], WHO INFORMED THAT PT HAS BEEN EVALUATED TODAY AND CAN RETURN TO [facility] LONG [facility]EREA IS REMOVED AND PT HAS VOIDED AT LEAST ONE TIME. BEDSIDE NURSE WAS MADE AWARE OF THIS BY MONICA. CM SPOKE TO BEDSIDE NURSE WHO INFORMED CM THAT SHE IS PAGING DR. JAMESON TO SEE IF PT CAN DISCHARGE TODAY. FOR DISCHARGE, NURSE REPORT TO BE CALLED TO THE [facility] AT [phone]; FAX DISCHARGE INFORMATION TO THE [facility] AT [phone]. NOTIFY [facility] AT [phone], FAX DISCHARGE INFORMATION TO [facility] AT [phone]. [facility] TRANSPORTATION. Reel Fed Printer: Yamil Mc DCP- Discharge Planning Updated by [id number]: Yamil Mc on 03/28/19 9:[address] Patient Name: FLASH JOSE Encounter No: [id number] : 1930 Primary Insurance: MEDICARE PART A ONLY Anticipated DC Date: Planned Disposition: Other Type of Facility External Planned Provider: [facility]; [facility] RESUMPTION Discharge Planning Comments: CHART REVIEW COMPLETED; PT WILL REQUIRE RE ASSESSMENT FROM [facility]. CM FAXED UPDATE TO THE [facility] AT [phone] AND [facility] AT [phone] FOR DISCHARGE, NURSE REPORT TO BE CALLED TO THE [facility] AT [phone]; FAX DISCHARGE INFORMATION TO THE [facility] AT [phone]. NOTIFY [facility] AT [phone], FAX DISCHARGE INFORMATION TO [facility] AT [phone]. Reel Fed Printer: Yamil Mc Appended by Yamil Mc on 03/28/2019 10:46 CDT: CM CALLED DAWNAL OF THE [facility], , REQUESTED RE ASSESSMENT FROM THE [facility]. CM FAXED UPDATE TO THE [facility] AT [phone]. FOR DISCHARGE, NURSE REPORT TO BE CALLED TO THE [facility] AT [phone]; FAX DISCHARGE INFORMATION TO THE [facility] AT [phone]. NOTIFY [facility] AT [phone], FAX DISCHARGE INFORMATION TO [facility] AT [phone]. Reel Fed Printer: Yamil Mc DCP- Discharge Planning Updated by [id number]: Yamil Mc on 03/22/19 2:[address] Patient Name: FLASH JOSE Admission Status: Accout number: [id number] Admission Date: 03-21-2019 : 1930 Admission Diagnosis: Attending: COLEEN PATEL Current LOS: 1 Anticipated DC Date: Planned Disposition: Other Type of Facility Primary Insurance: MEDICARE PART A ONLY PLANNED EXTERNAL PROVIDER: [facility] Discharge Planning Comments: CM MET WITH PT AND SON IN ROOM TO DISCUSS DISCHARGE PLANNING AND NEEDS. PT 'S SON, SON JOSE, IS PT'S POWER OF THERMAL SPRAY OPERATOR. PT IS LIVING AT THE [facility]. PT HAS WHEELCHAIR THAT SHE HAS BEEN USING AND A STANDARD AND ROLLATOR WALKER THAT THEY HAVE BEEN TRYING TO WORK PT BACK TO USING. PT HAS NO MEDICAL EQUIPMENT PROVIDER PREFERENCE. PT HAS HOME HEALTH FOR OCCUPATIONAL AND PHYSICAL THERAPY FROM [facility]. CM DISCUSSED AVAILABILTY OF REHAB SERVICES AND MEDICAL EQUIPMENT. PT'S SON DENIES DISCHARGE NEEDS, REPORTS PT WILL RETURN TO THE [facility], HE WILL TRANSPORT. PT WILL RESUME WITH [facility]. CHOICE SIGNED FOR [facility]. CM RECEIVED MESSAGE FROM ELVIA COBB OF THE [facility], , STATING THAT PT MAY RETURN TO [facility] AT DISCHARGE, IF DISCHARGED AFTER 03-24-19. PT WILL REQUIRE RE ASSESSMENT FROM THE [facility]. FOR DISCHARGE, NURSE REPORT TO BE CALLED TO THE [facility] AT [phone]; FAX DISCHARGE INFORMATION TO THE [facility] AT [phone]. NOTIFY [facility] AT [phone], FAX DISCHARGE INFORMATION TO [facility] AT [phone]. Reel Fed Printer: Yamil Mc DCPIA - Discharge Planning Initial Assessment Updated by [id number]: Yamil Mc on 03/22/19 3:15 pm * Is the patient Alert and Oriented? Yes * How many steps to enter\exit or inside your home? NONE * PCP [facility] * Pharmacy [facility], * Preadmission Environment Memory Care * Other Environment [facility] * Facility Name [facility] [phone] * ADLs Partial Dependent * Partial ADLs (Assistance needed) Bathing Medication Management * Equipment Rolling Walker Walker Wheelchair * Other Equipment NO MEDICAL EQUIPMENT PROVIDER PREFERENCE * List name and contact numbers for known caregivers / representatives who currently or will assist patient after discharge: SON JOSE, SON/POA, * Verbal permission to speak to the caregivers and representatives has been obtained from the patient. N/A * Community resources currently utilized Home Health * Please name any agencies selected above. [facility] * Additional services required to return to the preadmission environment? No * Can the patient safely return to the preadmission environment? Yes * Has this patient been hospitalized within the prior 30 days at any hospital? No Coverage Notice Reviewer: [id number] - Yamil Mc Notice Issued Date-Time: 03/22/2019 12:45 Notice Type: Patient Choice Letter Notice Delivered To: Family Member Relationship to Patient: Son Sharepoint Net Developer Name: SON JOSE Delivery Method: HAND - Hand Delivered Adelita Days: Prior Verbal Notification: Recipient Understood Notice: Yes Recipient Signature: Yes Med Rec Note Co-signed by Attending: Coverage Notice Comment: [facility] Last DP export: 03/28/19 9:50 a Patient Name: FLASH JOSE Page 74083 at 1559 All edits/amendments must be made on the electronic document DICTATION DATE: 03/28/191558 SHOW DESIGN SUPERVISOR: SERGEI 03/28/191558 RPT#: [id number] DC DATE: STATUS: ADM IN [facility] [address] [place] [address] END OF REPORT
--- NOTE | 2019-03-28 16:08 | MORECARE ---
CASE MANAGEMENT DISCHARGE SUMMARY PATIENT: FLASH JOSE UNIT: [id number] ADM DATE: 03/21/19 AGE: 88 : [birth year] SEX: F ROOM/BED: D.2838 AUTHOR: TIMUR,DOC PHYSICIAN: REFERRING PHYSICIAN: COLEEN PATEL MD DATE OF SERVICE: 03/28/19 Discharge Plan Patient Name: FLASH JOSE Facility: [facility]:[place] : 1930 Planned Disposition: Other Type of Facility Anticipated Discharge Date: 03/28/19 Discharge Date: Expected LOS: 7 Initial Reviewer: [id number] Initial Review Date: 03/22/2019 Generated: 03/28/19 5:08 pm Comments DCP- Discharge Planning Updated by [id number]: Yamil Mc on 03/28/19 2:[address] Patient Name: FLASH JOSE Encounter No: [id number] : 1930 Primary Insurance: MEDICARE PART A ONLY Anticipated DC Date: 03-28-2019 Planned Disposition: Other Type of Facility External Planned Provider: [facility] Discharge Planning Comments: CM SPOKE TO PT 'S SON, SON JOSE, WHO IS IN AGREEMENT WITH [facility]URN [facility], [facility] TO PROGRAM CHECKER. IMPORTANT MESSAGE FROM MEDICARE PROVIDED AND EXPLAINED. CM CALLED AND SOPKE TO MONICA OF [facility], WHO INFORMED CM THAT PT HAS BEEN EVALUATED TODAY AND CAN RETURN TO [facility] LONG [facility] IS REMOVED AND PT HAS VOIDED AT LEAST ONE TIME. BEDSIDE NURSE WAS MADE AWARE OF THIS BY MONICA. CM SPOKE TO BEDSIDE NURSE WHO INFORMED CM THAT SHE IS PAGING DR. JAMESON TO SEE IF PT CAN DISCHARGE TODAY. FOR DISCHARGE, NURSE REPORT TO BE CALLED TO THE [facility] AT [phone]; FAX DISCHARGE INFORMATION TO [facility] AT [phone]. NOTIFY [facility] AT [phone], FAX DISCHARGE INFORMATION TO [facility] AT [phone]. [facility] VAN TRANSPORTATION. Office Sweeper: Yamil Mc DCP- Discharge Planning Updated by [id number]: Yamil Mc on 03/28/19 9:[address] Patient Name: FLASH JOSE Encounter No: [id number] : 1930 Primary Insurance: MEDICARE PART A ONLY Anticipated DC Date: Planned Disposition: Other Type of Facility External Planned Provider: [facility]; [facility] Discharge Planning Comments: CHART REVIEW COMPLETED; PT WILL REQUIRE RE ASSESSMENT FROM [facility]. CM FAXED UPDATE TO [facility] AT [phone] AND [facility] AT [phone] FOR DISCHARGE, NURSE REPORT TO BE CALLED TO THE [facility] AT [phone]; FAX DISCHARGE INFORMATION TO [facility] AT [phone]. NOTIFY [facility] AT [phone], FAX DISCHARGE INFORMATION TO [facility] AT [phone]. Office Sweeper: Yamil Mc Appended by Yamil Mc on 03/28/2019 10:46 CDT: CM CALLED DAWNAL OF [facility], , REQUESTED RE ASSESSMENT FROM [facility]. CM FAXED UPDATE TO [facility] AT [phone]. FOR DISCHARGE, NURSE REPORT TO BE CALLED TO THE [facility] AT [phone]; FAX DISCHARGE INFORMATION TO [facility] AT [phone]. NOTIFY [facility] AT [phone], FAX DISCHARGE INFORMATION TO [facility] AT [phone]. Office Sweeper: Yamil Mc DCP- Discharge Planning Updated by [id number]: Yamil Mc on 03/22/19 2:[address] Patient Name: FLASH JOSE Admission Status: ER Accout number: [id number] Admission Date: 03-21-2019 : 1930 Admission Diagnosis: Attending: COLEEN PATEL Current LOS: 1 Anticipated DC Date: Planned Disposition: Other Type of Facility Primary Insurance: MEDICARE PART A ONLY PLANNED EXTERNAL PROVIDER: [facility] Discharge Planning Comments: CM MET WITH PT AND SON IN ROOM TO DISCUSS DISCHARGE PLANNING AND NEEDS. PT 'S SON, SON JOSE, IS PT'S POWER OF SOLVENT PROCESS EXTRACTOR OPERATOR. PT IS LIVING AT THE [facility]. PT HAS WHEELCHAIR THAT SHE HAS BEEN USING AND A STANDARD AND ROLLATOR WALKER THAT THEY HAVE BEEN TRYING TO WORK PT BACK TO USING. PT HAS NO MEDICAL EQUIPMENT PROVIDER PREFERENCE. PT HAS HOME HEALTH FOR OCCUPATIONAL AND PHYSICAL THERAPY FROM [facility]. CM DISCUSSED AVAILABILTY OF REHAB SERVICES AND MEDICAL EQUIPMENT. PT'S SON DENIES DISCHARGE NEEDS, REPORTS PT WILL RETURN TO THE [facility], HE WILL TRANSPORT. PT WILL RESUME WITH [facility]. CHOICE SIGNED FOR [facility]. CM RECEIVED MESSAGE FROM ELVIA COBB OF THE [facility], , STATING THAT PT MAY RETURN TO [facility] AT DISCHARGE, IF DISCHARGED AFTER 03-24-19. PT WILL REQUIRE RE ASSESSMENT FROM THE [facility]. FOR DISCHARGE, NURSE REPORT TO BE CALLED TO THE [facility] AT [phone]; FAX DISCHARGE INFORMATION TO THE [facility] AT [phone]. NOTIFY [facility] AT [phone], FAX DISCHARGE INFORMATION TO [facility] AT [phone]. Office Sweeper: Yamil Mc DCPIA - Discharge Planning Initial Assessment Updated by [id number]: Yamil Mc on 03/22/19 3:15 pm * Is the patient Alert and Oriented? Yes * How many steps to enter\exit or inside your home? NONE * PCP [facility] * Pharmacy [facility], * Preadmission Environment Memory Care * Other Environment [facility] * Facility Name [facility] [phone] * ADLs Partial Dependent * Partial ADLs (Assistance needed) Bathing Medication Management * Equipment Rolling Walker Walker Wheelchair * Other Equipment NO MEDICAL EQUIPMENT PROVIDER PREFERENCE * List name and contact numbers for known caregivers / representatives who currently or will assist patient after discharge: SON JOSE, SON/POA, * Verbal permission to speak to the caregivers and representatives has been obtained from the patient. N/A * Community resources currently utilized Home Health * Please name any agencies selected above. [facility] * Additional services required to return to the preadmission environment? No * Can the patient safely return to the preadmission environment? Yes * Has this patient been hospitalized within the prior 30 days at any hospital? No Coverage Notice Reviewer: [id number] - Yamil Mc Notice Issued Date-Time: 03/22/2019 12:45 Notice Type: Patient Choice Letter Notice Delivered To: Family Member Relationship to Patient: Son Railway Patrol Officer Name: SON JOSE Delivery Method: HAND - Hand Delivered Adelita Days: Prior Verbal Notification: Recipient Understood Notice: Yes Recipient Signature: Yes Med Rec Note Co-signed by Attending: Coverage Notice Comment: [facility] Reviewer: [id number] - Yamil Mc Notice Issued Date-Time: 03/28/2019 15:20 Notice Type: IM Discharge Notice Notice Delivered To: Family Member Relationship to Patient: Son Railway Patrol Officer Name: SON JOSE Delivery Method: HAND - Hand Delivered Adelita Days: Prior Verbal Notification: Recipient Understood Notice: Yes Recipient Signature: Yes Med Rec Note Co-signed by Attending: Coverage Notice Comment: Last DP export: 03/28/19 2:59 p Patient Name: FLASH JOSE Page 85623 at 1608 All edits/amendments must be made on the electronic document DICTATION DATE: 03/28/191607 COMPLIANCE OFFICER: SERGEI 03/28/191607 RPT#: [id number] DC DATE: STATUS: ADM IN [facility] [address] [place] [address] END OF REPORT
--- NOTE | 2019-03-28 16:59 | NUR ---
PT DISCHARGED. IV DCD WITH TIP INTACT. REPORT CALLED TO Imani ABBOTT LPN. TO LEVY DE JESUS WHEELCHAIR
[2019-03-28] MEDS ORDERED: OMNICEF300 MG PO (18:02)
--- NOTE | 2019-03-29 07:25 | NUR ---
LATE ENTRY FOR 03-21-19, ORDERED ZOSYN INITIATED AT 1442 COMPLETE AT 1512. ORDERED VANC INITIATED AT 1520 COMPLETE AT 1620.
--- NOTE | 2019-03-29 09:06 | MORECARE ---
CASE MANAGEMENT DISCHARGE SUMMARY PATIENT: FLASH JOSE UNIT: [id number] ADM DATE: 03/21/19 AGE: 88 : [birth year] SEX: F ROOM/BED: D.9256 AUTHOR: TIMUR,DOC PHYSICIAN: REFERRING PHYSICIAN: COLEEN PATEL MD DATE OF SERVICE: 03/29/19 Discharge Plan Patient Name: FLASH JOSE Facility: [facility]:[place] : 1930 Planned Disposition: Other Type of Facility Anticipated Discharge Date: 03/28/19 Discharge Date: 03/28/2019 Expected LOS: 7 Initial Reviewer: [id number] Initial Review Date: 03/22/2019 Generated: 03/29/19 10:06 am Comments DCP- Discharge Planning Updated by [id number]: Yamil Mc on 03/28/19 2:[address] Patient Name: FLASH JOSE Encounter No: [id number] : 1930 Primary Insurance: MEDICARE PART A ONLY Anticipated DC Date: 03-28-2019 Planned Disposition: Other Type of Facility External Planned [facility]: [facility] Discharge Planning Comments: CM SPOKE TO PT 'S SON, SON JOSE, WHO IS IN AGREEMENT WITH [facility], [facility] TO ACID CONDENSER. IMPORTANT MESSAGE FROM MEDICARE PROVIDED AND EXPLAINED. CM CALLED AND SOPKE TO MONICA OF [facility], WHO INFORMED CM THAT PT HAS BEEN EVALUATED TODAY AND CAN RETURN [facility] LONG [facility]A IS REMOVED AND PT HAS VOIDED AT LEAST ONE TIME. BEDSIDE NURSE WAS MADE AWARE OF THIS BY MONICA. CM SPOKE TO BEDSIDE NURSE WHO INFORMED CM THAT SHE IS PAGING DR. JAMESON TO SEE IF PT CAN DISCHARGE TODAY. FOR DISCHARGE, NURSE REPORT TO BE CALLED TO THE [facility] AT [phone]; FAX DISCHARGE INFORMATION TO [facility] AT [phone]. NOTIFY [facility] AT [phone], FAX DISCHARGE INFORMATION TO [facility] AT [phone]. [facility] V[facility] TRANSPORTATION. Childcare Administrator: Yamil Mc DCP- Discharge Planning Updated by [id number]: Yamil Mc on 03/28/19 9:[address] Patient Name: FLASH JOSE Encounter No: [id number] : 1930 Primary Insurance: MEDICARE PART A ONLY Anticipated DC Date: Planned Disposition: Other Type of Facility External Planned Provider: [facility]; [facility] Discharge Planning Comments: CHART REVIEW COMPLETED; PT WILL REQUIRE RE ASSESSMENT FROM [facility]. CM FAXED UPDATE TO [facility] AT [phone] AND [facility] AT [phone] FOR DISCHARGE, NURSE REPORT TO BE CALLED TO THE [facility] AT [phone]; FAX DISCHARGE INFORMATION TO [facility] AT [phone]. NOTIFY [facility] AT [phone], FAX DISCHARGE INFORMATION TO [facility] AT [phone]. Childcare Administrator: Yamil Mc Appended by Yamil Mc on 03/28/2019 10:46 CDT: CM CALLED DAWNAL OF [facility], , REQUESTED RE ASSESSMENT FROM [facility]. CM FAXED UPDATE TO [facility] AT [phone]. FOR DISCHARGE, NURSE REPORT TO BE CALLED TO THE [facility] AT [phone]; FAX DISCHARGE INFORMATION TO [facility] AT [phone]. NOTIFY [facility] AT [phone], FAX DISCHARGE INFORMATION TO [facility] AT [phone]. Childcare Administrator: Yamil Mc DCP- Discharge Planning Updated by [id number]: Yamil Mc on 03/22/19 2:[address] Patient Name: FLASH JOSE Admission Status: ER Accout number: [id number] Admission Date: 03-21-2019 : 1930 Admission Diagnosis: Attending: COLEEN PATEL Current LOS: 1 Anticipated DC Date: Planned Disposition: Other Type of Facility Primary Insurance: MEDICARE PART A ONLY PLANNED EXTERNAL PROVIDER: [facility] Discharge Planning Comments: CM MET WITH PT AND SON IN ROOM TO DISCUSS DISCHARGE PLANNING AND NEEDS. PT 'S SON, SON JOSE, IS PT'S POWER OF CURATOR HERBARIUM. PT IS LIVING AT [facility]. PT HAS WHEELCHAIR THAT SHE HAS BEEN USING AND A STANDARD AND ROLLATOR WALKER THAT THEY HAVE BEEN TRYING TO WORK PT BACK TO USING. PT HAS NO MEDICAL EQUIPMENT PROVIDER PREFERENCE. PT HAS HOME HEALTH FOR OCCUPATIONAL AND PHYSICAL THERAPY FROM [facility]. CM DISCUSSED AVAILABILTY OF REHAB SERVICES AND MEDICAL EQUIPMENT. PT'S SON DENIES DISCHARGE NEEDS, REPORTS PT WILL RETURN TO [facility], HE WILL TRANSPORT. PT WILL RESUME WITH [facility]. CHOICE SIGNED FOR [facility]. CM RECEIVED MESSAGE FROM ELVIA COBB OF THE [facility], , STATING THAT PT MAY RETURN TO [facility] AT DISCHARGE, IF DISCHARGED AFTER 03-24-19. PT WILL REQUIRE RE ASSESSMENT FROM THE [facility]. FOR DISCHARGE, NURSE REPORT TO BE [facility] AT [phone]; FAX DISCHARGE INFORMATION TO THE [facility] AT [phone]. NOTIFY [facility] AT [phone], FAX DISCHARGE INFORMATION TO [facility] AT [phone]. Childcare Administrator: Yamil Mc DCPIA - Discharge Planning Initial Assessment Updated by [id number]: Yamil Mc on 03/22/19 3:15 pm * Is the patient Alert and Oriented? Yes * How many steps to enter\exit or inside your home? NONE * PCP [facility] * Pharmacy [facility], * Preadmission Environment [facility] Care * Other [facility] * Facility [facility] [phone] * ADLs Partial Dependent * Partial ADLs (Assistance needed) Bathing Medication Management * Equipment Rolling Walker Walker Wheelchair * Other Equipment NO MEDICAL EQUIPMENT PROVIDER PREFERENCE * List name and contact numbers for known caregivers / representatives who currently or will assist patient after discharge: SON JOSE, SON/POA, * Verbal permission to speak to the caregivers and representatives has been obtained from the patient. N/A * Community resources currently utilized Home Health * Please name any agencies selected above. [facility] * Additional services required to return to the preadmission environment? No * Can the patient safely return to the preadmission environment? Yes * Has this patient been hospitalized within the prior 30 days at any hospital? No Coverage Notice Reviewer: [id number] - Yamil Mc Notice Issued Date-Time: 03/22/2019 12:45 Notice Type: Patient Choice Letter Notice Delivered To: Family Member Relationship to Patient: Son Records Manager Name: SON JOSE Delivery Method: HAND - Hand Delivered Adelita Days: Prior Verbal Notification: Recipient Understood Notice: Yes Recipient Signature: Yes Med Rec Note Co-signed by Attending: Coverage Notice Comment: [facility] Reviewer: [id number] - Yamil Mc Notice Issued Date-Time: 03/28/2019 15:20 Notice Type: IM Discharge Notice Notice Delivered To: Family Member Relationship to Patient: Son Records Manager Name: SON JOSE Delivery Method: HAND - Hand Delivered Adelita Days: Prior Verbal Notification: Recipient Understood Notice: Yes Recipient Signature: Yes Med Rec Note Co-signed by Attending: Coverage Notice Comment: Last DP export: 03/28/19 3:08 p Patient Name: FLASH JOSE Page 50096 at 0906 All edits/amendments must be made on the electronic document DICTATION DATE: 03/29/19905 FUSE MAKER: SERGEI 03/29/19905 RPT#: [id number] DC DATE:03/28/19 STATUS: DIS IN [facility] [address] [place] [address] END OF REPORT
== END 2019-03-28 17:23 | disposition home health service (06) | DRG 922 ==
LOC: D.ER 08:53 → D.M2 15:12
PROVIDERS: Family Medicine; ADMIT Internal Medicine Nephrology; ATTEND Internal Medicine Nephrology
DX: T79.8XXA Other early complications of trauma, initial encounter (principal); J18.9 Pneumonia, unspecified organism; E43 Unspecified severe protein-calorie malnutrition; Z68.1 Body mass index [BMI] 19.9 or less, adult; E87.1 Hypo-osmolality and hyponatremia; S22.42XA Multiple fractures of ribs, left side, initial encounter for closed fracture; F03.90 Unspecified dementia, unspecified severity, without behavioral disturbance, psychotic disturbance, mood disturbance, and anxiety; J43.9 Emphysema, unspecified; X58.XXXA Exposure to other specified factors, initial encounter; R91.1 Solitary pulmonary nodule; D64.9 Anemia, unspecified; E83.42 Hypomagnesemia; J98.4 Other disorders of lung

== ENCOUNTER 2019-06-03 13:10 | Inpatient (IN) | payer MEDICARE, OTHER ==
[~2019-06-03] VITALS: Ht 170.2 cm; Wt 43.1 kg
[~2019-06-03 13:10] MED LIST: BACTRIM 400-801 TAB PO; LEXAPRO20 MG PO; OMNICEF300 MG PO
[2019-06-03 13:54] LABS: BASOPHILS 0.3 % (0-2); EOSINOPHILS 1.5 % (0-7); HEMOGLOBIN 13.4 g/dL (12-16); IMMATURE GRANULOCYTES 0.2 % (0-5); LYMPHOCYTES 13.1 % (15-50); MCH 31.1 pg (26.0-34.0); MCHC 33.5 g/dL (31.0-37.0); MCV 92.8 fL (80.0-100.0); MEAN PLATELET VOLUME 9.2 fL (7.4-10.4); MONOCYTES 8.6 % (2-11); NEUTROPHILS 76.3 % (40-80); PLATELET COUNT 291 10x3/uL (130-400); RBC 4.31 10x6/uL (4.00-5.40); WBC 9.4 10x3/uL (4.8-10.8)
[2019-06-03 14:17] LABS: ALBUMIN 2.3 g/dL (3.4-5.0); ALKALINE PHOSPHATASE 87 U/L (46-116); ALT (SGPT) 11 U/L (10-68); BILIRUBIN - TOTAL 0.34 mg/dL (0.2-1.3); CALC OSMOLALITY 280 mosm/kg (275-300); CALCIUM 8.9 mg/dL (8.5-10.1); CARBON DIOXIDE 27.3 mmol/L (21.0-32.0); CHLORIDE - SERUM 103 mmol/L (98-107); CREATININE - SERUM 0.8 mg/dL (0.6-1.3); GLUCOSE 114 mg/dL (74-106); POTASSIUM - SERUM 4.1 mmol/L (3.5-5.1); PROTEIN - SERUM 6.8 g/dL (6.4-8.2); SODIUM 140 mmol/L (136-145); UREA NITROGEN 14 mg/dL (7-18); eGFR NON AFRICAN AMERICAN 72 mL/min (90-120)
[2019-06-03 14:34] LABS: CKMB 0.6 U/L (0.0-3.6); CREATINE KINASE 26 UL (21-215); LIPASE 83 U/L (73-393); TROPONIN-I < 0.017 ng/mL (0.000-0.060)
[2019-06-03 16:00] LABS: APPEARANCE CLEAR (CLEAR); BILIRUBIN NEGATIVE (NEGATIVE); COLOR YELLOW (YELLOW); GLUCOSE NEGATIVE (NEGATIVE); KETONE NEGATIVE (NEGATIVE); NITRITE NEGATIVE (NEGATIVE); PROTEIN NEGATIVE (NEGATIVE); UROBILINOGEN NORMAL (NORMAL)
[2019-06-03 16:02] LABS: BACTERIA MANY /hpf (NONE SEEN); EPITHELIAL CELLS OCC /hpf (0-5); MUCUS <1+ /lpf (NONE SEEN); RED CELLS - URINE 0-5 /hpf (0-5); WHITE CELLS - URINE 0-5 /hpf (0-5)
--- NOTE | 2019-06-03 16:48 | NUR ---
PATIENT BACK FROM CT. TOLERATED WELL.
[2019-06-03 20:26] VITALS: BP 159/86; BMI 14.9
[2019-06-03] MEDS ORDERED: MEGACE40 MG PO (22:18)
[2019-06-03 23:50] VITALS: BP 157/83
[2019-06-04 03:38] VITALS: BP 173/79
[2019-06-04 06:47] LABS: BASOPHILS 0.4 % (0-2); EOSINOPHILS 2.2 % (0-7); HEMATOCRIT 37.6 % (36.0-48.0); HEMOGLOBIN 12.3 g/dL (12-16); IMMATURE GRANULOCYTES 0.3 % (0-5); LYMPHOCYTES 16.6 % (15-50); MCH 30.2 pg (26.0-34.0); MCHC 32.7 g/dL (31.0-37.0); MCV 92.4 fL (80.0-100.0); MEAN PLATELET VOLUME 9.4 fL (7.4-10.4); MONOCYTES 7.7 % (2-11); NEUTROPHILS 72.8 % (40-80); PLATELET COUNT 280 10x3/uL (130-400); RBC 4.07 10x6/uL (4.00-5.40); RDW 13.8 % (11.5-14.5); WBC 7.3 10x3/uL (4.8-10.8)
[2019-06-04 07:23] LABS: ALBUMIN 2.2 g/dL (3.4-5.0); ALKALINE PHOSPHATASE 85 U/L (46-116); ALT (SGPT) 9 U/L (10-68); BILIRUBIN - TOTAL 0.38 mg/dL (0.2-1.3); CALC OSMOLALITY 275 mosm/kg (275-300); CALCIUM 8.6 mg/dL (8.5-10.1); CHLORIDE - SERUM 106 mmol/L (98-107); CREATININE - SERUM 0.6 mg/dL (0.6-1.3); GLUCOSE 85 mg/dL (74-106); MAGNESIUM - SERUM 1.5 mg/dL (1.8-2.4); POTASSIUM - SERUM 4.3 mmol/L (3.5-5.1); PROTEIN - SERUM 5.9 g/dL (6.4-8.2); SODIUM 139 mmol/L (136-145); eGFR NON AFRICAN AMERICAN > 90 mL/min (90-120)
[2019-06-04 07:25] LABS: UREA NITROGEN 10 mg/dL (7-18)
[2019-06-04 07:41] VITALS: BP 142/85
--- NOTE | 2019-06-04 08:36 | NUR ---
CALLED PHARMACY AND SPOKE TO SAMIR, JANNETED HER THAT I NEED MEDICATIONS FOR PT, NOT LOADED ON PYXIS.
--- NOTE | 2019-06-04 09:24 | MORECARE ---
CASE MANAGEMENT DISCHARGE SUMMARY PATIENT: FLASH JOSE UNIT: [id number] ADM DATE: 06/03/19 AGE: 88 : [birth year] SEX: F ROOM/BED: D.1206 AUTHOR: PAM DING PHYSICIAN: REFERRING PHYSICIAN: COLEEN PATEL MD DATE OF SERVICE: 06/04/19 Discharge Plan Patient Name: FLASH JOSE Facility: [facility]:[place] : 1930 Planned Disposition: Assisted Living Anticipated Discharge Date: 06/05/19 Discharge Date: Expected LOS: 2 Initial Reviewer: [id number] Initial Review Date: 06/03/2019 Generated: 06/04/19 10:23 am Patient Name: FLASH JOSE Page 52845 at 0924 All edits/amendments must be made on the electronic document DICTATION DATE: 06/04/19922 DIRECTOR OF MARKETING ANALYTICS: SERGEI 06/04/19922 RPT#: [id number] DC DATE: STATUS: ADM IN [facility] [address] [place] [address] END OF REPORT
--- NOTE | 2019-06-04 09:36 | MORECARE ---
CASE MANAGEMENT DISCHARGE SUMMARY PATIENT: FLASH CHANG UNIT: [id number] ADM DATE: 06/03/19 AGE: 88 : [birth year] SEX: F ROOM/BED: D.1206 AUTHOR: PAM DING PHYSICIAN: REFERRING PHYSICIAN: COLEEN PATEL MD DATE OF SERVICE: 06/04/19 Discharge Plan Patient Name: FLASH CHANG Facility: [facility] : 1930 Planned Disposition: Assisted Living Anticipated Discharge Date: 06/05/19 Discharge Date: Expected LOS: 2 Initial Reviewer: [id number] Initial Review Date: 06/03/2019 Generated: 06/04/19 10:36 am DCPIA - Discharge Planning Initial Assessment Updated by [id number]: Jeanine Gonzalez on 06/04/19 9:33 am * Is the patient Alert and Oriented? Yes * How many steps to enter\exit or inside your home? None * PCP Using [facility] - Moved here recently. * Pharmacy [facility] * Preadmission Environment Assisted Living * [facility] Name [facility] Also has 12 hours a day caregiver that stays with her. * ADLs Partial Dependent * Partial ADLs (Assistance needed) Ambulation Bathing Dressing Eating Medication Management Toileting Transfers * Equipment Oxygen Walker Wheelchair * Other Equipment Uses the wheelchair only at this time. Not able to ambulate safely with the walker. * List name and contact numbers for known caregivers / representatives who currently or will assist patient after discharge: Mannie Chang - son [facility] - [phone] * Verbal permission to speak to the caregivers and representatives has been obtained from the patient. Yes * Community resources currently utilized Assisted Living Private Duty Care * Additional services required to return to the preadmission environment? No * Can the patient safely return to the preadmission environment? Yes * Has this patient been hospitalized within the prior 30 days at any hospital? No Last DP export: 06/04/19 8:24 a Patient Name: FLASH CHANG Page 70398 at 0936 All edits/amendments must be made on the electronic document DICTATION DATE: 08/31/19 0936 SHREDDER OPERATOR: SERGEI 06/04/19935 RPT#: [id number] DC DATE: STATUS: ADM IN [facility] [address] [place] [address] END OF REPORT
--- NOTE | 2019-06-04 09:57 | MORECARE ---
CASE MANAGEMENT DISCHARGE SUMMARY PATIENT: FLASH CHANG UNIT: [id number] ADM DATE: 06/03/19 AGE: 88 : [birth year] SEX: F ROOM/BED: D.1206 AUTHOR: TIMUR,DOC PHYSICIAN: REFERRING PHYSICIAN: COLEEN PATEL MD DATE OF SERVICE: 06/04/19 Discharge Plan Patient Name: FLASH CHANG Facility: [facility]:[place] : 1930 Planned Disposition: Assisted Living Anticipated Discharge Date: 06/05/19 Discharge Date: Expected LOS: 2 Initial Reviewer: [id number] Initial Review Date: 06/03/2019 Generated: 06/04/19 10:57 am DCP- Discharge Planning Updated by [id number]: Jeanine Gonzalez on 06/04/19 8:[address] Patient Name: FLASH CHANG Admission Status: ER Accout number: [id number] Admission Date: 06-03-2019 : 1930 Admission Diagnosis: Attending: COLEEN PATEL Current LOS: 1 Anticipated DC Date: 06-05-2019 Planned Disposition: Assisted Living Primary Insurance: MEDICARE PART A ONLY Discharge Planning Comments: [facility] PLAN[facility] DC NEEDS: MARLENIMannie Kaba stated he did not feel HH or Rehab is a benefit @ this time. Denied known needs. CM met with patient and her son, Mannie (JOHN) to complete initial dc planning assessment. CM educated them on the CM role and verbal consent given by Mannie to complete assessment. CM verified patient's address, phone number, and emergency contact phone numbers. [facility]. She also has 12 hours a day private caregiver. Mannie reports she recently had [facility] but it was stopped because the patient was not progressing with therapy. She is currently using a wheelchair for all ambulation. She has oxygen she uses at HS and portability. He reports her O2 sats have been very good and she does not use the portable O2 during the day. Mannie reports the [facility] will [facility] dc and he does not feel hh or any type of rehab will be needed. Mannie stated he or the [facility] will transport her home at time of discharge. CM will continue to follow and will assist as needed with dc plans/needs. Respite Coordinator: Jeanine Gonzalez DCPIA - Discharge Planning Initial Assessment Updated by [id number]: Jeanine Gonzalez on 06/04/19 9:33 am * Is the patient Alert and Oriented? Yes * How many steps to enter\exit or inside your home? None * PCP Using [facility] - Moved here recently. * Pharmacy [facility] * Preadmission Environment Assisted Living * [facility] Also has 12 hours a day caregiver that stays with her. * ADLs Partial Dependent * Partial ADLs (Assistance needed) Ambulation Bathing Dressing Eating Medication Management Toileting Transfers * Equipment Oxygen Walker Wheelchair * Other Equipment Uses the wheelchair only at this time. Not able to ambulate safely with the walker. * List name and contact numbers for known caregivers / representatives who currently or will assist patient after discharge: Mannie Chang - elmer LOPEZ - [phone] * Verbal permission to speak to the caregivers and representatives has been obtained from the patient. Yes * Community resources currently utilized Assisted Living Private Duty Care * Additional services required to return to the preadmission environment? No * Can the patient safely return to the preadmission environment? Yes * Has this patient been hospitalized within the prior 30 days at any hospital? No Last DP export: 06/04/19 8:36 a Patient Name: FLASH CHANG Page 05893 at 0957 All edits/amendments must be made on the electronic document DICTATION DATE: 06/04/19956 MEAT TEAM LEAD: SERGEI 06/04/19956 RPT#: [id number] DC DATE: STATUS: ADM IN [facility] [address] [place] [address] END OF REPORT
[2019-06-04 13:27] VITALS: BP 101/50
--- NOTE | 2019-06-04 13:57 | NUR ---
COMPLETE BED BATH AND LINEN CHANGE DONE DOWN AT THIS TIME. RESPOSTIONED PT ON HER RIGHT SIDE. PT DENIES ANY NEEDS AT THIS TIME. CALL LIGHT IN REACH, CAREGIVER AT BEDSIDE, NAD NOTED, WILL CONTINUE TO MONITOR.
--- NOTE | 2019-06-04 15:49 | NUR ---
CALLED PHARMACY AND SPOKE WITH CAROL, INFORMED HER THAT I NEED LEVAQUIN FOR PT.
[2019-06-04 16:02] VITALS: Ht 170.2 cm; Wt 43.1 kg
[2019-06-04 17:39] VITALS: BP 130/68
--- NOTE | 2019-06-04 18:08 | NUR ---
CLEANED PT UP FROM INCONT CARE, CHANGED OUT PURE WICK EXTERNAL CATHETER. REPOSITIONED PT ON LEFT SIDE. CAREGIVER AT BEDSIDE, BEDSIDE RAILS X2, SCDS ON BILAT. CALL LIGHT IN REACH, NAD NOTED.
--- NOTE | 2019-06-04 19:00 | NUR ---
PT IS ALERT WHEN ENTERING THE ROOM. ORIENTED TO SELF BUT DISORIENTED TO TIME PLACE AND SITUATION. PATIENT ANSWERS QUESTIONS WITH HESISTATION AND SPEAKS VERY SOFTLY. LUNGS PRESENT WITH CRACKLES AND RALES BILATERALLY. ENCOURAGED PATIENT TO COUGH, PATIENT ATTMEPTED BUT COUGH REMAINS NON PRODUCTIVE THE PATIENT HAS MODERATE WEAKNESS. WEARING 2 L NASAL CANNULA AT THIS TIME. RADIAL PULSES PALPABLE. BELLY SOFT TO TOUCH AND NON TENDER TO PALPATION. PRESENTS WITH ACTIVE SOUNDS. HAS LEFT AC IV THAT IS PATENT AND INFUSING NS @ 125. HAS REDDENED AREA TO THE RIGHT BUTTOCKS. PURPLISH TONES NOTED. REPOSITIONED PATIENT TO ALLEVIATE PRESSURE TO AREA. PATIENT TOLERATES TURNING WELL. HEELS ARE BOGGY. BRIDGED. SCD'S ON AT THIS TIME. CALL LIGHT IN REACH. ATTEMPTED TO PROVIDE EDUCATION BUT PATIENT WILL NEED FURTHER INSTRUCTION. PATIENT CLOSE TO NURSES STATION. SIDE RAILS UP X 2. CPOC.
[2019-06-04 19:55] VITALS: BP 158/74
--- NOTE | 2019-06-04 21:32 | NUR ---
REPOSITIONED PATIENT FOR COMFORT. PROVIDED SIPS OF WATER PER REQUEST.
--- NOTE | 2019-06-04 23:30 | NUR ---
REPOSITIONED PATIENT IN BED. TOLERATED WELL. DENIES NEEDS AT THIS TIME.
[2019-06-05 00:36] VITALS: BP 176/88
--- NOTE | 2019-06-05 00:38 | NUR ---
I have reviewed this patient and I concur with the Shift Assessment completed by the Licensed Practical Nurse today this shift.
--- NOTE | 2019-06-05 01:40 | NUR ---
PT AROUSES TO VERBAL STIMULI. REPOSITIONED. CHECKED SHEETS FOR INCONTINENCE. PUREWICK IN PLACE AND SUCTIONING APPROPRIATELY. DENIES NEEDS. NO DISTRESS NOTED. CPOC.
[2019-06-05 04:00] VITALS: BP 181/85
[2019-06-05 05:57] LABS: BASOPHILS 0.3 % (0-2); EOSINOPHILS 3.5 % (0-7); HEMATOCRIT 34.2 % (36.0-48.0); HEMOGLOBIN 11.3 g/dL (12-16); IMMATURE GRANULOCYTES 0.3 % (0-5); LYMPHOCYTES 22.4 % (15-50); MCH 30.4 pg (26.0-34.0); MCV 91.9 fL (80.0-100.0); MEAN PLATELET VOLUME 9.4 fL (7.4-10.4); MONOCYTES 7.2 % (2-11); NEUTROPHILS 66.3 % (40-80); PLATELET COUNT 236 10x3/uL (130-400); RBC 3.72 10x6/uL (4.00-5.40); RDW 13.7 % (11.5-14.5); WBC 7.1 10x3/uL (4.8-10.8)
[2019-06-05 06:13] LABS: CALC OSMOLALITY 274 mosm/kg (275-300); CALCIUM 7.9 mg/dL (8.5-10.1); CARBON DIOXIDE 24.6 mmol/L (21.0-32.0); CHLORIDE - SERUM 106 mmol/L (98-107); CREATININE - SERUM 0.5 mg/dL (0.6-1.3); GLUCOSE 77 mg/dL (74-106); SODIUM 139 mmol/L (136-145); UREA NITROGEN 8 mg/dL (7-18); eGFR NON AFRICAN AMERICAN > 90 mL/min (90-120)
[2019-06-05 07:31] VITALS: BP 175/78
--- NOTE | 2019-06-05 07:32 | NUR ---
PT IS RESTING IN BED WITH EYES OPEN. RESPIRATIONS ARE EVEN AND UNLABORED. PT IS ORIENTED TO SELF. PT REORIENTED TO PLACE/TIME/SITUATION. CAREGIVER VERONIKA IS AT BEDSIDE. CAREGIVER REPORTS THAT PT HAS HX OF EITHER ALZHEIMERS OR DEMENTIA. PUREWICK IS IN PLACE. SMALL AMOUNT OF DARK YELLOW URINE NOTED TO COLLECTION CHAMBER. SCDS ARE ON BILATERAL LOWER EXTREMITIES. LUNG SOUNDS ARE DIMINISHED BILATERALLY WITH EXPIRATORY CRACKLES TO RLL. BED IS IN THE LOWEST POSITION. CALL LIGHT AND BEDSIDE TABLE ARE WITHIN REACH. SIDE RAILS X 2. BREAKFAST TRAY AT BEDSIDE. CAREGIVER VERONIKA TO ASSIST WITH BREAKFAST. HELEN ALARM IS ON AND WORKING. WILL CONT TO MONITOR.
--- NOTE | 2019-06-05 09:36 | NUR ---
PT REPOSITIONED TO LEFT SIDE WITH PILLOWS USED FOR SUPPORT.
[2019-06-05 11:13] VITALS: BP 139/80
--- NOTE | 2019-06-05 11:14 | NUR ---
PT REPOSITIONED TO RIGHT SIDE. PILLOWS USED FOR SUPPORT.
[2019-06-05] MEDS ORDERED: LEVOFLOXACIN500 MG PO (11:26)
--- NOTE | 2019-06-05 13:29 | NUR ---
PT REPOSITIONED TO BACK. CAREGIVER AT BEDSIDE. PT AND PT CAREGIVER DENY FURTHER NEEDS. HELEN ALARM IS ON AND WORKING. BED IS IN THE LOWEST POSITION. CALL LIGHT AND BEDSIDE TABLE ARE WITHIN REACH. SIDE RAILS X 2. WILL CONT TO MONITOR.
--- NOTE | 2019-06-05 15:46 | NUR ---
PT REPOSITIONED TO LEFT SIDE. PILLOWS USED FOR SUPPORT. COMPLETE LINEN CHANGE. PUREWICK CHANGED. MEPILEX TO COCCYX CHANGED. CAREGIVER AT BEDSIDE ASSISTED WITH PT CARE. BED IS IN THE LOWEST POSITION. CALL LIGHT AND BEDSIDE TABLE ARE WITHIN REACH. SIDE RAILS X 2. HELEN ALARM IS ON AND WORKING. PT AND PT CAREGIVER DENY FURTHER NEEDS AT THIS TIME. WILL CONT TO MONITOR.
[2019-06-05 16:07] VITALS: BP 153/66
--- NOTE | 2019-06-05 17:41 | NUR ---
PT REPOSITIONED TO RIGHT SIDE. PILLOWS USED FOR SUPPORT. BED IS IN THE LOWEST POSITION. CALL LIGHT AND BEDSIDE TABLE ARE WITHIN REACH. SIDE RAILS X 2. HELEN ALARM IS ON AND WORKING. CAREGIVER AT BEDSIDE. PT AND PT CAREGIVER DENY FURTHER NEEDS AT THIS TIME. WILL CONT TO MONITOR.
[2019-06-05 20:09] VITALS: BP 179/96
[2019-06-06 00:18] VITALS: BP 169/82
[2019-06-06 04:00] VITALS: BP 174/93
[2019-06-06 07:34] LABS: CALC OSMOLALITY 276 mosm/kg (275-300); CALCIUM 7.9 mg/dL (8.5-10.1); CARBON DIOXIDE 29.2 mmol/L (21.0-32.0); CHLORIDE - SERUM 106 mmol/L (98-107); CREATININE - SERUM 0.5 mg/dL (0.6-1.3); GLUCOSE 74 mg/dL (74-106); POTASSIUM - SERUM 3.6 mmol/L (3.5-5.1); SODIUM 141 mmol/L (136-145); eGFR NON AFRICAN AMERICAN > 90 mL/min (90-120)
[2019-06-06 07:36] LABS: UREA NITROGEN 5 mg/dL (7-18)
[2019-06-06 07:52] LABS: BASOPHILS 0.4 % (0-2); EOSINOPHILS 4.4 % (0-7); HEMOGLOBIN 11.9 g/dL (12-16); IMMATURE GRANULOCYTES 0.4 % (0-5); LYMPHOCYTES 20.9 % (15-50); MCH 29.8 pg (26.0-34.0); MCHC 33.1 g/dL (31.0-37.0); MCV 90.2 fL (80.0-100.0); MEAN PLATELET VOLUME 9.1 fL (7.4-10.4); MONOCYTES 5.6 % (2-11); NEUTROPHILS 68.3 % (40-80); PLATELET COUNT 277 10x3/uL (130-400); RBC 3.99 10x6/uL (4.00-5.40); RDW 13.5 % (11.5-14.5); WBC 7.1 10x3/uL (4.8-10.8)
--- NOTE | 2019-06-06 08:14 | NUR ---
PT LAYING IN BED. RR EVEN AND UNLABORED. NO DISTRESS NOTED. O2 SAT 86% ON 4L NC. GEOFFREY SALINAS APN NOTIFIED. UPDRAFT TX ORDERED. RESPIRATORY CURRRENTLY AT BEDSIDE. O2 SAT INCREASED TO 96%. WILL CONTINUE TO MONITOR.
[2019-06-06 08:32] VITALS: BP 198/95
--- NOTE | 2019-06-06 10:26 | NUR ---
CALL LIGHT ANSWERED. CAREGIVER STATES PT FELT ANXIOUS AND COULD NOT CATH HER BREATH. PT RR 26. INSTRUCTED TO TAKE SLOW DEEP BREATHS. OXYGEN SATURATION 94% ON 2L NC. PT ANXIETY IMPROVED. PT STATES SEHE FEELS BETTER.
--- NOTE | 2019-06-06 12:45 | NUR ---
PT TURNED ONTO LEFT SIDE. PUREWICK IN PLACE. NO DISTRESS NOTED. WILL CONTINUE TO MONITOR.
--- NOTE | 2019-06-06 14:07 | NUR ---
PT TURNED TO RIGHT SIDE. PURWICK IN PLACE. LINENS CLEAN AND DRY. NO DISTRESS NOTED. DENIES NEEDS OR PAIN AT THIS TIME.
--- NOTE | 2019-06-06 16:34 | NUR ---
PT TURNED ONTO LEFT SIDE. DENIES NEEDS OR PAIN AT THIS TIME. WILL CONTINUE TO MONITOR.
--- NOTE | 2019-06-06 18:36 | NUR ---
BM X1. PT CLEANED AND LINENS AND GOWN CHANGED. PUREWICH CHANGED AND IN PLACE. 800 ML CLEAR YELLOW URINE EMPTIED. PT REQUESTED TO BE LEFT ON BACK. MEPILEX APPLIED TO BUTTOCK. PT DENIES FURTHER NEEDS AT THIS TIME. WILL CONTINUE TO MONITOR.
[2019-06-06 19:03] VITALS: BP 141/70
--- NOTE | 2019-06-06 19:20 | NUR ---
PATIENT RESTING IN BED AND DENIES NEEDS AT THIS TIME. VSS. PATIENT DENIES NEEDS AT THIS TIME. BED IN LOWEST POSITION, CALL LIGHT WITHIN REACH, AND BED ALARM ON. ENCOURAGED THE PATIENT TO CALL IF SHE HAS NEEDS. WILL CONTINUE TO MONITOR.
[2019-06-06 19:40] VITALS: BP 163/62
[2019-06-07] VITALS (7 sets, daily range): BP systolic 143–189; BP diastolic 59–92
--- NOTE | 2019-06-07 04:20 | NUR ---
BATHED PATIENT AND CHANGED LINENS
[2019-06-07 07:09] LABS: BASOPHILS 0.4 % (0-2); EOSINOPHILS 4.2 % (0-7); HEMATOCRIT 37.9 % (36.0-48.0); HEMOGLOBIN 12.6 g/dL (12-16); IMMATURE GRANULOCYTES 0.3 % (0-5); LYMPHOCYTES 14.7 % (15-50); MCH 30.2 pg (26.0-34.0); MCHC 33.2 g/dL (31.0-37.0); MCV 90.9 fL (80.0-100.0); MEAN PLATELET VOLUME 9.4 fL (7.4-10.4); MONOCYTES 6.4 % (2-11); PLATELET COUNT 295 10x3/uL (130-400); RBC 4.17 10x6/uL (4.00-5.40); RDW 13.8 % (11.5-14.5); WBC 7.6 10x3/uL (4.8-10.8)
--- NOTE | 2019-06-07 07:20 | NUR ---
PT IS RESTING IN BED WITH EYES CLOSED. RESPIRATIONS ARE EVEN AND UNLABORED. PT IS AROUSED WITH MOVEMENT. PT IS ORIENTED TO SELF. PT REORIENTED TO PLACE, TIME, AND SITUATION. O2 VIA NC @ 2L. LEFT AC PIV INFUSING WITHOUT DIFFICULTY. PUREWICK IN PLACE. LIGHT YELLOW URINE NOTED TO COLLECTION CHAMBER. PT REPOSITIONED TO BACK. BILATERAL HEELS BRIDGED AND ARE OFF OF BED. PILLOW PLACED BETWEEN KNEES FOR COMFORT. BED IS IN THE LOWEST POSITION. CALL LIGHT AND BEDSIDE TABLE ARE WITHIN REACH. SIDE RAILS X 2. HELEN ALARM IS ON AND WORKING. WILL CONT TO MONITOR. SCDS ARE ON.
[2019-06-07 07:21] LABS: ANION GAP 11.8 mmol/L (8-16); CALCIUM 8.6 mg/dL (8.5-10.1); CARBON DIOXIDE 27.4 mmol/L (21.0-32.0); POTASSIUM - SERUM 3.2 mmol/L (3.5-5.1)
[2019-06-07 07:22] LABS: CREATININE - SERUM 0.8 mg/dL (0.6-1.3); MAGNESIUM - SERUM 1.8 mg/dL (1.8-2.4)
--- NOTE | 2019-06-07 07:36 | NUR ---
PT PREVIOUS DOSE OF IV VANCOMYCIN HANGING BUT DID NOT INFUSE. BAG IS FULL. WILL NOTIFY PHARMACY.
--- NOTE | 2019-06-07 08:15 | NUR ---
CAREGIVER AT BEDSIDE AND IS ASSISTING WITH MEAL TRAY.
--- NOTE | 2019-06-07 09:46 | NUR ---
PT REPOSITIONED TO LEFT SIDE. PILLOWS USED FOR SUPPORT. COMPLETE LINEN CHANGE AT THIS TIME. PT WITH SMALL AMOUNT OF INCONTINENT STOOL. PUREWICK PLACED IN APPROPRIATE POSITION AND HOOKED TO WALL SUCTION. CAREGIVER AT BEDSIDE ASSISTING WITH PT CARE. CALMOSEPTINE PLACED ON PT BUTTOCK PER ORDER. BED IS IN THE LOWEST POSITION. CALL LIGHT AND BEDSIDE TABLE ARE WITHIN REACH. SIDE RAILS X 2. HELEN ALARM IS ON AND WORKING. CAREGIVER AT BEDSIDE. WILL CONT TO MONITOR.
--- NOTE | 2019-06-07 11:19 | NUR ---
WEDGE RECD FROM MATERIALS. WEDGE PLACED AND PT IS POSITIONED ON RIGHT SIDE. CAREGIVER IS AT BEDSIDE. BED IS IN THE LOWEST POSITION. CALL LIGHT AND BEDSIDE TABLE ARE WITHIN REACH. SIDE RAILS X 2. HELEN ALARM IS ON AND WORKING. WILL CONT TO MONITOR.
--- NOTE | 2019-06-07 13:21 | NUR ---
PT REPOSITIONED TO BACK. CAREGIVER AT BEDSIDE ASSISTING PT WITH LUNCH.
--- NOTE | 2019-06-07 13:34 | NUR ---
Nutrition Follow-up: Diet: Regular + Ensure with meals PO intake: 50% x 6 meals Family and nurse report pt with good appetite. Is drinking Ensure. Small non-open stage I on buttocks per RN. Family interested in getting Timbo on meal trays. +BM Wt: 95# (06/04/19) Labs reviewed, significant meds: IV abxjt RD Following
--- NOTE | 2019-06-07 13:36 | NUR ---
CAREGIVER AND FAMILY AT BEDSIDE REQUESTING TO WAIT FOR K+ REPLACEMENT UNTIL PT IS MORE ALERT AND NOT " FULL".
--- NOTE | 2019-06-07 15:41 | NUR ---
PT REPOSITIONED TO LEFT SIDE. WEDGE USED FOR SUPPORT. BILATERAL HEELS ARE BRIDGED AND OFF OF BED. BED IS IN THE LOWEST POSITION. CALL LIGHT AND BEDSIDE TABLE ARE WITHIN REACH. SIDE RAILS X 2. HELEN ALARM IS ON AND WORKING. PT AND PT CAREGIVER DENY FURTHER NEEDS AT THIS TIME. WILL CONT TO MONITOR.
--- NOTE | 2019-06-07 16:53 | NUR ---
OT NOTE: PT COMPLETED UE AAROM AXS. PT COMPLETED BED MOB TASKS WITH LEVI COX, CHRISTOFER KENNEDY
--- NOTE | 2019-06-07 17:36 | NUR ---
PT REPOSITIONED TO RIGHT SIDE. WEDGE USED FOR SUPPORT. BILATERAL HEELS ARE BRIDGED AND OFF OF BED. MEPILEX PLACED TO COCCYX. REDDENED AREA TO COCCYX NOW WITH OPEN AREA. CALMOSEPTINE APPLIED PRIOR TO MEPILEX PLACEMENT.
[2019-06-08 04:00] VITALS: BP 196/92
[2019-06-08 05:39] LABS: BASOPHILS 0.5 % (0-2); EOSINOPHILS 3.8 % (0-7); HEMATOCRIT 36.4 % (36.0-48.0); HEMOGLOBIN 11.8 g/dL (12-16); IMMATURE GRANULOCYTES 0.2 % (0-5); LYMPHOCYTES 12.5 % (15-50); MCH 30.3 pg (26.0-34.0); MCHC 32.4 g/dL (31.0-37.0); MEAN PLATELET VOLUME 9.9 fL (7.4-10.4); MONOCYTES 7.4 % (2-11); NEUTROPHILS 75.6 % (40-80); PLATELET COUNT 241 10x3/uL (130-400); RDW 14.2 % (11.5-14.5); WBC 8.1 10x3/uL (4.8-10.8)
[2019-06-08 05:50] LABS: MCV 93.3 fL (80.0-100.0)
[2019-06-08 06:20] LABS: CALC OSMOLALITY 289 mosm/kg (275-300); CALCIUM 8.3 mg/dL (8.5-10.1); CARBON DIOXIDE 29.5 mmol/L (21.0-32.0); CHLORIDE - SERUM 111 mmol/L (98-107); CREATININE - SERUM 0.6 mg/dL (0.6-1.3); GLUCOSE 78 mg/dL (74-106); MAGNESIUM - SERUM 1.7 mg/dL (1.8-2.4); SODIUM 147 mmol/L (136-145); UREA NITROGEN 11 mg/dL (7-18); eGFR NON AFRICAN AMERICAN > 90 mL/min (90-120)
--- NOTE | 2019-06-08 07:30 | NUR ---
AM ROUNDS- PT RESTING IN BED WITH EYES CLOSED UPON ENTERING, AROUSES TO SPEECH. BREATHING EVEN AND UNLABORED. NO S/S OF DISTRESS NOTED. AWAKE BUT CONFUSED TO TIME, PLACE AND SITUATION. IV TO LEFT AC, NS @ 125. 2L OXYGEN VIA NASAL CANNULA. BEDFAST AND HAS A MAGNET MAKER AT BEDSIDE FROM . PUREWICK IN PLACE. PT ON LEFT SIDE WITH WEDGE UNDER RIGHT SIDE. TELEMETRY RUNNING SINUS RHYTHM @ 83. STAGE 1 ULCER TO LEFT BUTTOCK CHEEK. NEW BAG OF FLUIDS HUNG. CAREGIVER DENIES ANY NEEDS, LEFT FEEDING PT AT BEDSIDE. WILL CTM.
[2019-06-08 08:11] VITALS: BP 174/84
--- NOTE | 2019-06-08 09:34 | NUR ---
CRUSHED AND ADMINISTERED MORNING MEDICATION AT THIS TIME. CAREGIVER ASSISTED IN ROLLING PT TO RIGHT SIDE AND CALMOSEPTINE APPLIED TO BUTTOCK. PT SITUATED COMFORTABLY. CARETGIVER DENIES ANY NEEDS AT THIS TIME. WILL CTM.
--- NOTE | 2019-06-08 11:30 | NUR ---
ATTEMPTED IN AND OUT CATH ON PT, NO URINE RETURN. SCANNED PT BLADDER, SCANNER REPORTS 97ML. SARA TINSLEY GOING TO TRY IN AND OUT CATH AGAIN.
--- NOTE | 2019-06-08 11:55 | NUR ---
PT ADMITTED TO [facility] ON 06/03/19 FROM [facility]. SHE REQUIRES ASSISTANCE WITH ADLS AND IS INCONTINENT TO BOWELS AND BLADDER. PT IS CONFUSED. SHE IS NOTED TO HAVE RED SLOW TO PRIMO HEELS. HEELS ARE FLOATED AT THIS TIME WITH USE OF PILLOWS. COCCYX HAS A STAGE 2 PRESSURE INJURY ON RIGHT SIDE THAT MEASURES 2X2. CAREGIVER STATES PT HAS BEEN ON A TURN/REPOSITION Q 2 HOURS SCHEDULE SINCE BEING ADMITTED. CALMOSEPTINE CREAM IS BEING APPLIED TO BOTTOM. RECOMMEND PLACING PT ON AN AIR OVERLAY MATTRESS AND CONTINUE ON TURN SCHEDULE. ALSO CONTINUE WITH CALMOSEPTINE. WOUND CARE WILL CONTINUE MONITORING.
[2019-06-08 12:23] LABS: APPEARANCE HAZY (CLEAR); BILIRUBIN NEGATIVE (NEGATIVE); COLOR YELLOW (YELLOW); GLUCOSE NEGATIVE (NEGATIVE); KETONE NEGATIVE (NEGATIVE); NITRITE NEGATIVE (NEGATIVE); PROTEIN NEGATIVE (NEGATIVE); UROBILINOGEN NORMAL (NORMAL)
[2019-06-08 12:27] LABS: BACTERIA FEW /hpf (NONE SEEN); EPITHELIAL CELLS 0-5 /hpf (0-5); RED CELLS - URINE 0-5 /hpf (0-5); WHITE CELLS - URINE 0-5 /hpf (0-5); YEAST <1+ /hpf (NONE SEEN)
--- NOTE | 2019-06-08 12:30 | NUR ---
FULL LINEN CHANGE. CAREGIVER AT BEDSIDE FEEDING LUNCH. SON AT BEDSIDE WELL. DENIES ANY NEEDS. WILL CTM.
--- NOTE | 2019-06-08 13:01 | NUR ---
OT NOTE: PT ALERT BUT DID NOT VERBALLY RESPOND TO QUESTIONS. MAX ASSIST WITH ROLLING SIDE TO SIDE; MAX ASSIST WITH SUPINE TO SIT. MOD ASSIST WITH STATIC SITTING ON EOB. MAX ASSIST WITH ADLS. LIMITED MOVEMENT IN L UE. CAREGIVER STATED THAT SHE WAS NOT USING HER L ARM TODAY BUT THOUGHT IT WAS DUE TO IV PLACEMENT. PRIOR TO TRANSFERRING PT TO CHAIR, NURSING REQUESTED THAT WE HOLD SHE HAD TO HAVE IN/OUT CATH AT THIS TIME. WILL RE ATTEMPT LATER. DEVANG SHEEHAN, OTR/L
--- NOTE | 2019-06-08 14:20 | NUR ---
THERAPY IN ROOM, TRANSFERED PT TO BEDSIDE CHAIR. OVERLAY MATTRESS PLACED ON PT BED. FAMILY AND CAREGIVER AT BEDSIDE. DENIES ANY NEEDS AT THIS TIME. PT IS SITUATED COMFORTABLY WILL CTM.
--- NOTE | 2019-06-08 16:04 | NUR ---
OT NOTE: PT COMPLETED SIT TO STAND WITH CGA/MIN A. PT COMPLETED ADL MOB WITH CGA. PT COMPLETED BED MOB WITH MIN A TO MANAGE LE. PT COMPLETED BUE AROM AX. PT IS COOPERATIVE AND EXHIBITED INCREASED FUNCTIONAL ABILITY. THANK YOU, CHRISTOFER KENNEDY
--- NOTE | 2019-06-08 16:36 | NUR ---
OT NOTE: PT COMPLETED BED MOB TASKS WITH MAX/TOTAL A. PT COMPLETED EOB SITTING BALANCE WITH MAX A. PT COMPLETED BUE AROM AX. CAREGIVER AT BEDSIDE. CHECO COX COTA
--- NOTE | 2019-06-08 18:51 | NUR ---
PT RESTING COMFORTABLY IN BED, TRANSFERRED BY CAREGIVER. HUNG NEW BAG OF SALINE. PT IS ON OVERLAY MATTRESS. PT IS ROLLED TO LEFT SIDE, HEELS ARE BRIDGED. PT IS A TURN Q2H. DENIES ANY NEEDS AT THIS TIME.
--- NOTE | 2019-06-08 19:20 | NUR ---
PT LYING IN BED RESTING WITH EYES CLOSED. PT TURNED TO LEFT SIDE BY THIS NURSE AND CAREGIVER AT BEDSIDE. LINENS CHANGED, JAME CARE PROVIDED, PLACED NEW PUREWICK CATHETER AND CONNECT TO SUCTION. CALMOSEPTINE PLACED ON STAGE 2 TO BOTTOM. BILAT HEELS BRIDGED WITH PILLOW BETWEEN KNEES. IV LEFT AC INFUSING NS @ 125. O2 2L/NC. PT HAVING FREQUEST PRODUCTIVE COUGH. SCDS ON BILAT. HR 99 SR PER TELE. DENIES NEEDS. CL IN REACH, WILL CTM
[2019-06-08 20:00] VITALS: BP 148/76
[2019-06-09] VITALS: BP 137/68
[2019-06-09 04:45] VITALS: BP 164/73
[2019-06-09 05:50] LABS: BASOPHILS 0.4 % (0-2); EOSINOPHILS 2.7 % (0-7); HEMATOCRIT 32.3 % (36.0-48.0); HEMOGLOBIN 10.7 g/dL (12-16); IMMATURE GRANULOCYTES 0.3 % (0-5); LYMPHOCYTES 13.9 % (15-50); MCH 30.1 pg (26.0-34.0); MCHC 33.1 g/dL (31.0-37.0); MEAN PLATELET VOLUME 9.6 fL (7.4-10.4); MONOCYTES 7.1 % (2-11); NEUTROPHILS 75.6 % (40-80); PLATELET COUNT 275 10x3/uL (130-400); RBC 3.55 10x6/uL (4.00-5.40); RDW 13.9 % (11.5-14.5); WBC 7.9 10x3/uL (4.8-10.8)
[2019-06-09 06:00] LABS: CALCIUM 8.1 mg/dL (8.5-10.1); CARBON DIOXIDE 30.2 mmol/L (21.0-32.0); CHLORIDE - SERUM 110 mmol/L (98-107); CREATININE - SERUM 0.7 mg/dL (0.6-1.3); GLUCOSE 89 mg/dL (74-106); MAGNESIUM - SERUM 1.6 mg/dL (1.8-2.4); SODIUM 146 mmol/L (136-145); eGFR NON AFRICAN AMERICAN 83 mL/min (90-120)
[2019-06-09 06:09] LABS: CALC OSMOLALITY 290 mosm/kg (275-300); POTASSIUM - SERUM 3.2 mmol/L (3.5-5.1); UREA NITROGEN 14 mg/dL (7-18)
--- NOTE | 2019-06-09 07:10 | NUR ---
REPORT RECEIVED FROM WINDOWS SERVER SUPPORT TECHNICIAN AND PATIENT CARE ASSUMED. PATIENT LAYING IN BED ON BACK WITH EYES CLOSED AND BREATHING EVENLY. PATIENT IS STABLE AND VSS. REPOSITIONED PATIENT TO LEFT SIDE. WILL CONTINUE WITH PLAN OF CARE. SR UP X 2 BED IN LOW POSITION AND CALL LIGHT IN REACH.
[2019-06-09 08:00] VITALS: BP 162/75
--- NOTE | 2019-06-09 09:30 | NUR ---
PATIENT LAYING IN BED ON LT SIDE.REPOSITIONED TO BACK WITH HEELS BRIDIGED. PATIENT ASSESESMENT COMPLETED. CAREGIVER AT BS. WILL CONTINUE TO MONITOR.
--- NOTE | 2019-06-09 11:12 | NUR ---
PATIENT IS STABLE AND VSS. PATIENT UP TO BS CHAIR WITH PT ASSISTANCE. CAREGIVER AND SON AT BS.
[2019-06-09 11:30] VITALS: BP 160/74
--- NOTE | 2019-06-09 12:28 | NUR ---
OT NOTE: BED MOB WITH MAX ASSIST; MAX ASSIST FOR EOB SITTING. PT UNABLE TO MAINTAIN STATIC SITTING WITHOUT MAX ASSIST. TOTAL ASSIST FOR TRANSFER FROM BED OT CHAIR. POSITIONED IN CHAIR WITH PILLOWS UNDER ARMS. DEVANG SHEEHAN, OTR/L
--- NOTE | 2019-06-09 13:15 | NUR ---
PATIENT BACK TO BED WITH PT ASSISTANCE. PATIENT POSITIONED TO RT SIDE. PATIENT DENIES ANY NEEDS OR PAIN. CAREGIVER AT BS.
--- NOTE | 2019-06-09 13:20 | NUR ---
PATIENT REPOSITIONED TO LT SIDE FOR COMFORT. WILL CONTINUE TO MONITOR.CG AT BS.
--- NOTE | 2019-06-09 15:07 | MORECARE ---
CASE MANAGEMENT DISCHARGE SUMMARY PATIENT: FLASH CHANG UNIT: [id number] ADM DATE: 06/03/19 AGE: 88 : [birth year] SEX: F ROOM/BED: D.1206 AUTHOR: PAM DING PHYSICIAN: REFERRING PHYSICIAN: COLEEN PATEL MD DATE OF SERVICE: 06/09/19 Discharge Plan Patient Name: FLASH CHANG Facility: [facility]:[place] : 1930 Planned Disposition: Assisted Living Anticipated Discharge Date: 06/05/19 Discharge Date: Expected LOS: 2 Initial Reviewer: [email or web address] Initial Review Date: 06/03/2019 Generated: 06/09/19 4:07 pm Comments DCP- Discharge Planning Updated by [email or web address]: Tasia Gomez on 06/09/19 1:[address] Patient Name: FLASH CHANG Admission Status: ER Accout number: [id number] Admission Date: 06-03-2019 : 1930 Admission Diagnosis:URINARY TRACT INFECTION, SITE NOT SPECIFIED Attending: COLEEN PATEL Current LOS: 6 Anticipated DC Date: 06-05-2019 Planned Disposition: Assisted Living Primary Insurance: MEDICARE PART A ONLY Discharge Planning Comments: LAUREANO MATHIS FROM THE [facility] CALLED AND ASKED IF AT TIME OF DISCHARGE WOULD THE PHYSICIAN HERE PUT IN ORDERS FOR [facility] FOR NURSING O & A, PT, OT, ST NEEDED. ALSO REQUESTED ORDER FOR [facility] TO DO WOUND CARE. SHE STATES THEY HAD A MEETING WITH THE SON, SON, AND HE REQUESTED [facility]. [facility] IS AN ASSISTED LIVING FACILITY. RN STATES THE PCP IS [facility]. CM WILL FOLLOW AND ASSIST. Hourly Shift: Tasia Gomez DCP- Discharge Planning Updated by [id number]: Jeanine Gonzalez on 06/04/19 8:[address] Patient Name: FLASH CHANG Admission Status: ER Accout number: [id number] Admission Date: 06-03-2019 : 1930 Admission Diagnosis: Attending: COLEEN PATEL Current LOS: 1 Anticipated DC Date: 06-05-2019 Planned Disposition: Assisted Living Primary Insurance: MEDICARE PART A ONLY Discharge Planning Comments: [facility] PLAN[facility] DC NEEDS: POASon stated he did not feel HH or Rehab is a benefit @ this time. Denied known needs. CM met with patient and her son, Son (JOHN) to complete initial dc planning assessment. CM educated them on the CM role and verbal consent given by Son to complete assessment. CM verified patient's address, phone number, and emergency contact phone numbers. Patient lives at the [facility] on the Assisted Living side. She also has 12 hours a day private caregiver. Son reports she recently had [facility] but it was stopped because the patient was not progressing with therapy. She is currently using a wheelchair for all ambulation. She has oxygen she uses at HS and portability. He reports her O2 sats have been very good and she does not use the portable O2 during the day. Son reports the patient will [facility] de and he does not feel hh or any type of rehab will be needed. Son stated he or the [facility] will transport her home at time of discharge. CM will continue to follow and will assist as needed with dc plans/needs. Hourly Shift: Jeanine Gonzalez DCPIA - Discharge Planning Initial Assessment Updated by [id number]: Jeanine Gonzalez on 06/04/19 9:33 am * Is the patient Alert and Oriented? Yes * How many steps to enter\exit or inside your home? None * PCP Using [facility] - Moved here recently. * Pharmacy [facility] * Preadmission Environment Assisted Living * Facility Name [facility] Also has 12 hours a day caregiver that stays with her. * ADLs Partial Dependent * Partial ADLs (Assistance needed) Ambulation Bathing Dressing Eating Medication Management Toileting Transfers * Equipment Oxygen Walker Wheelchair * Other Equipment Uses the wheelchair only at this time. Not able to ambulate safely with the walker. * List name and contact numbers for known caregivers / representatives who currently or will assist patient after discharge: Son Chang - son POA - [phone] * Verbal permission to speak to the caregivers and representatives has been obtained from the patient. Yes * Community resources currently utilized Assisted Living Private Duty Care * Additional services required to return to the preadmission environment? No * Can the patient safely return to the preadmission environment? Yes * Has this patient been hospitalized within the prior 30 days at any hospital? No Coverage Notice Reviewer: [id number] - Harleen Ben Notice Issued Date-Time: 06/08/2019 12:52 Notice Type: IM Discharge Notice Notice Delivered To: Family Member Relationship to Patient: Son Shoe Sprayer Name: Delivery Method: HAND - Hand Delivered Adelita Days: Prior Verbal Notification: Recipient Understood Notice: Yes Recipient Signature: Yes Med Rec Note Co-signed by Attending: Coverage Notice Comment: Last DP export: 06/04/19 8:57 a Patient Name: FLASH CHANG Page [id number] at 1507 All edits/amendments must be made on the electronic document DICTATION DATE: 06/09/19 1506 POUCH MAKER: SERGEI 06/09/19 1506 RPT#: [id number] DC DATE: STATUS: ADM IN [facility] [address] [place] [address] END OF REPORT
--- NOTE | 2019-06-09 15:58 | MORECARE ---
CASE MANAGEMENT DISCHARGE SUMMARY PATIENT: FLASH CHANG UNIT: [id number] ADM DATE: 06/03/19 AGE: 88 : [birth year] SEX: F ROOM/BED: D.1206 AUTHOR: TIMURDOC PHYSICIAN: REFERRING PHYSICIAN: COLEEN PATEL MD DATE OF SERVICE: 06/09/19 Discharge Plan Patient Name: FLASH CHANG Facility: [facility]:[place] : 1930 Planned Disposition: Assisted Living Anticipated Discharge Date: 06/05/19 Discharge Date: Expected LOS: 2 Initial Reviewer: [id number] Initial Review Date: 06/03/2019 Generated: 06/09/19 4:58 pm Comments DCP- Discharge Planning Updated by [id number]: Tasia Gomez on 06/09/19 2:[address] Patient Name: FLASH CHANG Admission Status: ER Accout number: [id number] Admission Date: 06-03-2019 : 1930 Admission Diagnosis:URINARY TRACT INFECTION, SITE NOT SPECIFIED Attending: COLEEN PATEL Current LOS: 6 Anticipated DC Date: 06-05-2019 Planned Disposition: Assisted Living Primary Insurance: MEDICARE PART A ONLY Discharge Planning Comments: LAUREANO MATHIS FROM THE [facility] CALLED AND ASKED IF AT TIME OF DISCHARGE WOULD THE PHYSICIAN HERE PUT IN ORDERS FOR [facility] FOR NURSING O & A, PT, OT, ST NEEDED. ALSO REQUESTED ORDER FOR [facility] TO DO WOUND CARE. SHE STATES THEY HAD A MEETING WITH THE SON, SON, AND HE REQUESTED [facility]. [facility] IS AN ASSISTED LIVING FACILITY. RN STATES THE PCP IS [facility]. CM WILL FOLLOW AND ASSIST. Supervisor Functional Testing: Tasia Gomez Appended by Tasia Gomez on 06/09/2019 15:53 CDT: [facility] CALLED AND STATES WANTS [facility] FOR THE HH NEEDS. DCP- Discharge Planning Updated by [email or web address]: Jeanine Gonzalez on 06/04/19 8:[address] Patient Name: FLASH CHANG Admission Status: ER Accout number: [id number] Admission Date: 06-03-2019 : 1930 Admission Diagnosis: Attending: COLEEN PATEL Current LOS: 1 Anticipated DC Date: 06-05-2019 Planned Disposition: Assisted Living Primary Insurance: MEDICARE PART A ONLY Discharge Planning Comments: DC PLAN: [facility] - ANTIC[facility]ATED DC NEEDS: Son LOPEZ stated he did not feel HH or Rehab is a benefit @ this time. Denied known needs. CM met with patient and her son, Son (JOHN) to complete initial dc planning assessment. CM educated them on the CM role and verbal consent given by Son to complete assessment. CM verified patient's address, phone number, and emergency contact phone numbers. Patient lives at the [facility] on the Assisted Living side. She also has 12 hours a day private caregiver. Son reports she recently had [facility] but it was stopped because the patient was not progressing with therapy. She is currently using a wheelchair for all ambulation. She has oxygen she uses at HS and portability. He reports her O2 sats have been very good and she does not use the portable O2 during the day. Son reports the [facility] will [facility] and he does not feel hh or any type of rehab will be needed. Son stated he or the [facility] will transport her home at time of discharge. CM will continue to follow and will assist as needed with dc plans/needs. Supervisor Functional Testing: Jeanine Gonzalez DCPIA - Discharge Planning Initial Assessment Updated by [id number]: Jeanine Gonzalez on 06/04/19 9:33 am * Is the patient Alert and Oriented? Yes * How many steps to enter\exit or inside your home? None * PCP Using [facility] - Moved here recently. * Pharmacy [facility] * Preadmission Environment Assisted Living * [facility] Name [facility] Also has 12 hours a day caregiver that stays with her. * ADLs Partial Dependent * Partial ADLs (Assistance needed) Ambulation Bathing Dressing Eating Medication Management Toileting Transfers * Equipment Oxygen Walker Wheelchair * Other Equipment Uses the wheelchair only at this time. Not able to ambulate safely with the walker. * List name and contact numbers for known caregivers / representatives who currently or will assist patient after discharge: Son Chang - son JOHN - [phone] * Verbal permission to speak to the caregivers and representatives has been obtained from the patient. Yes * Community resources currently utilized Assisted Living Private Duty Care * Additional services required to return to the preadmission environment? No * Can the patient safely return to the preadmission environment? Yes * Has this patient been hospitalized within the prior 30 days at any hospital? No Coverage Notice Reviewer: [id number] Monet Contreras Notice Issued Date-Time: 06/08/2019 12:52 Notice Type: IM Discharge Notice Notice Delivered To: Family Member Relationship to Patient: Son Medical Anthropology Director Name: Delivery Method: HAND - Hand Delivered Adelita Days: Prior Verbal Notification: Recipient Understood Notice: Yes Recipient Signature: Yes Med Rec Note Co-signed by Attending: Coverage Notice Comment: Last DP export: 06/09/19 2:07 pm Patient Name: FLASH CHANG Page [id number] at 1558 All edits/amendments must be made on the electronic document DICTATION DATE: 06/09/191557 PHARMACY SPECIALIST: SERGEI 06/09/19 1558 RPT#: [id number] DC DATE: STATUS: ADM IN [facility] [address] [place] [address] END OF REPORT
[2019-06-09 16:30] VITALS: BP 160/80
--- NOTE | 2019-06-09 17:02 | NUR ---
PATIENT LAYING IN BED ON RT SIDE WITH EYES CLOSED AND BREATHING EVENLY. PATIENT REPOSITIONED TO BACK FOR COMFORT. CG AT BS. WILL CONTINUE TO MONITOR.
--- NOTE | 2019-06-09 19:15 | NUR ---
EVENING ROUNDS MADE, WILL CONTINUE POC. PATIENT IS A&OX1, DISORIENTED TO TIME, PLACE, SITUATION. NO S/SX OF DISTRESS NOTED, RR EVEN AND UNLABORED ON 2L O2 VIA NC. IV TO LT AC, PATENT, INFUSING NS @75ML/HR, DRSG C/D/I. PATIENT HAS PUREWICK CATHETER WITH CLEAR, YELLOW URINE VIA SUCTION. PATIENT DENIES FURHTER NEEDS AT THIS TIME. CL IN REACH, HELEN ALARM ON, BED LOCKED AND LOWERED. WILL CTM.
[2019-06-09 20:00] VITALS: BP 137/65
--- NOTE | 2019-06-09 21:15 | NUR ---
ADMINISTERED HS MEDS, CRUSHED AND MIXED WITH APPLESAUCE. PATIENT IS TURNED SLIGHTLY TO RIGHT SIDE. SHE DIDN'T WANT TO TURN AT ALL DUE TO BEING COMFORTABLE. EXPRESSED TO HER THAT IT WAS NECESSARY DUE TO THE ULCER ON HER BUTTOCKS, SHE WAS COMPLIANT. WILL CTM.
--- NOTE | 2019-06-09 22:55 | NUR ---
ZUHAIR LOPEZ. PATIENT DENIES NEEDS AT THIS TIME. NO S/S OF DISTRESS NOTED. CL IN REACH. WILL CTM.
[2019-06-10 00:28] VITALS: BP 179/101; BP 189/72
[2019-06-10 04:12] VITALS: BP 177/83
--- NOTE | 2019-06-10 05:32 | NUR ---
I have reviewed this patient and I concur with the Shift Assessment completed by the Licensed Practical Nurse today this shift.
--- NOTE | 2019-06-10 06:13 | NUR ---
TURNED PATIENT TO LEFT SIDE WITH WEDGE UNDER RIGHT HIP. PUREWICK IN PLACE. CL IN REACH, BED LOCKED AND LOWERED. WILL CTM.
--- NOTE | 2019-06-10 06:47 | NUR ---
REPORT RECEIVED FROM KNOWLEDGE ARCHITECT AND PATIENT CARE ASSUMED. PATIENT LAYING ON RT SIDE IN BED WITH EYES CLOSED AND BREATHING NON LABORED. PATIENT IS STABLE AND VSS. WILL CONTINUE WITH PLAN OF CARE. SR UP X 2 BED IN LOW POSITION AND CALL LIGHT IN REACH.
[2019-06-10 07:04] LABS: ALBUMIN 1.7 g/dL (3.4-5.0); ANION GAP 7.5 mmol/L (8-16); BILIRUBIN - TOTAL 0.37 mg/dL (0.2-1.3); CARBON DIOXIDE 30.1 mmol/L (21.0-32.0); CREATININE - SERUM 0.8 mg/dL (0.6-1.3); MAGNESIUM - SERUM 1.6 mg/dL (1.8-2.4); POTASSIUM - SERUM 3.6 mmol/L (3.5-5.1); PROTEIN - SERUM 5.5 g/dL (6.4-8.2)
[2019-06-10 12:37] LABS: APPEARANCE CLEAR (CLEAR); COLOR STRAW (YELLOW); SPECIFIC GRAVITY 1.005 (1.005-1.020)
[2019-06-10 12:38] LABS: BILIRUBIN NEGATIVE (NEGATIVE); GLUCOSE NEGATIVE (NEGATIVE); KETONE NEGATIVE (NEGATIVE); NITRITE NEGATIVE (NEGATIVE); PROTEIN NEGATIVE (NEGATIVE); UROBILINOGEN NORMAL (NORMAL)
--- NOTE | 2019-06-10 12:41 | MORECARE ---
CASE MANAGEMENT DISCHARGE SUMMARY PATIENT: FLASH CHANG UNIT: [id number] ADM DATE: 06/03/19 AGE: 88 : [birth year] SEX: F ROOM/BED: D.1206 AUTHOR: TIMURDOC PHYSICIAN: REFERRING PHYSICIAN: COLEEN PATEL MD DATE OF SERVICE: 06/10/19 Discharge Plan Patient Name: FLASH CHANG Facility: [facility]:[place] : 1930 Planned Disposition: Assisted Living Anticipated Discharge Date: 06/05/19 Discharge Date: Expected LOS: 2 Initial Reviewer: [email or web address] Initial Review Date: 06/03/2019 Generated: 06/10/19 1:40 pm Comments DCP- Discharge Planning Updated by [id number]: Tasia Gomez on 06/09/19 2:[address] Patient Name: FLASH CHANG Admission Status: ER Accout number: [id number] Admission Date: 06-03-2019 : 1930 Admission Diagnosis:URINARY TRACT INFECTION, SITE NOT SPECIFIED Attending: COLEEN PATEL Current LOS: 6 Anticipated DC Date: 06-05-2019 Planned Disposition: Assisted Living Primary Insurance: MEDICARE PART A ONLY Discharge Planning Comments: LAUREANO MATHIS FROM THE [facility] CALLED AND ASKED IF AT TIME OF DISCHARGE WOULD THE PHYSICIAN HERE PUT IN ORDERS FOR HOME HEALTH [facility] FOR NURSING O & A, PT, OT, ST NEEDED. ALSO REQUESTED ORDER FOR CARE 4 HH TO DO WOUND CARE. SHE STATES THEY HAD A MEETING WITH THE SON, SON, AND HE REQUESTED [facility] AND CARE 4. [facility] IS AN ASSISTED LIVING FACILITY. RN STATES THE PCP IS [facility]. CM WILL FOLLOW AND ASSIST. Ranch Hand Livestock: Tasia Gomez Appended by Tasia Gomez on 06/09/2019 15:53 CDT: [facility] CALLED AND STATES WANTS [facility] FOR THE HH NEEDS. DCP- Discharge Planning Updated by [id number]: Jeanine Gonzalez on 06/04/19 8:[address] Patient Name: FLASH CHANG Admission Status: ER Accout number: [id number] Admission Date: 06-03-2019 : 1930 Admission Diagnosis: Attending: COLEEN PATEL Current LOS: 1 Anticipated DC Date: 06-05-2019 Planned Disposition: Assisted Living Primary Insurance: MEDICARE PART A ONLY Discharge Planning Comments: [facility] PL[facility] DC NEEDS: Son LOPEZ stated he did not feel HH or Rehab is a benefit @ this time. Denied known needs. CM met with patient and her son, Son (JOHN) to complete initial dc planning assessment. CM educated them on the CM role and verbal consent given by Son to complete assessment. CM verified patient's address, phone number, and emergency contact phone numbers. [facility] She also has 12 hours a day private caregiver. Son reports she recently had [facility] but it was stopped because the patient was not progressing with therapy. She is currently using a wheelchair for all ambulation. She has oxygen she uses at HS and portability. He reports her O2 sats have been very good and she does not use the portable O2 during the day. Son reports the [facility] and he does not feel hh or any type of rehab will be needed. Son stated he or the [facility] will transport her home at time of discharge. CM will continue to follow and will assist as needed with dc plans/needs. Ranch Hand Livestock: Jeanine Gonzalez DCPIA - Discharge Planning Initial Assessment Updated by [id number]: Jeanine Gonzalez on 06/04/19 9:33 am * Is the patient Alert and Oriented? Yes * How many steps to enter\exit or inside your home? None * PCP Using [facility] - Moved here recently. * Pharmacy [facility] * Preadmission Environment Assisted Living * [facility] Also has 12 hours a day caregiver that stays with her. * ADLs Partial Dependent * Partial ADLs (Assistance needed) Ambulation Bathing Dressing Eating Medication Management Toileting Transfers * Equipment Oxygen Walker Wheelchair * Other Equipment Uses the wheelchair only at this time. Not able to ambulate safely with the walker. * List name and contact numbers for known caregivers / representatives who currently or will assist patient after discharge: Son Chang - son JOHN - [phone] * Verbal permission to speak to the caregivers and representatives has been obtained from the patient. Yes * Community resources currently utilized Assisted Living Private Duty Care * Additional services required to return to the preadmission environment? No * Can the patient safely return to the preadmission environment? Yes * Has this patient been hospitalized within the prior 30 days at any hospital? No External Providers [facility] Next Contact Date: Service Request Date: Service Type: Resolution: Reviewer: Comments: Coverage Notice Reviewer: [id number] Monet Contreras Notice Issued Date-Time: 06/08/2019 12:52 Notice Type: IM Discharge Notice Notice Delivered To: Family Member Relationship to Patient: Son Kitchen Lead Name: Delivery Method: HAND - Hand Delivered Adelita Days: Prior Verbal Notification: Recipient Understood Notice: Yes Recipient Signature: Yes Med Rec Note Co-signed by Attending: Coverage Notice Comment: Last DP export: 06/09/19 2:58 pm Patient Name: FLASH CHANG Page 79281 at 1241 All edits/amendments must be made on the electronic document DICTATION DATE: 06/10/19 1240 MACHINE ENGINEER: SERGEI 06/10/19 1240 RPT#: [id number] DC DATE: STATUS: ADM IN [facility] [address] [place] [address] END OF REPORT
[2019-06-10] MEDS ORDERED: DIFLUCAN100 MG PO (13:00)
--- NOTE | 2019-06-10 14:05 | MORECARE ---
CASE MANAGEMENT DISCHARGE SUMMARY PATIENT: FLASH CHANG UNIT: [id number] ADM DATE: 06/03/19 AGE: 88 : [birth year] SEX: F ROOM/BED: D.1206 AUTHOR: TIMUR,DOC PHYSICIAN: REFERRING PHYSICIAN: COLEEN PATEL MD DATE OF SERVICE: 06/10/19 Discharge Plan Patient Name: FLASH CHANG Facility: [facility]:[place] : 1930 Planned Disposition: Assisted Living Anticipated Discharge Date: 06/05/19 Discharge Date: Expected LOS: 2 Initial Reviewer: [email or web address] Initial Review Date: 06/03/2019 Generated: 06/10/19 3:04 pm Comments DCP- Discharge Planning Updated by [id number]: Harleen Contreras on 06/10/19 12:[address] CM was notified by son that he would like Home Health upon discharge. GLENN signed for [facility] and second choice is [facility]. CM called and contacted Ray with [facility] and Ray stated that they would start on Thursday. CM faxed records to [facility]. CM spoke with Trav @ [facility] regarding d/c orders and transportation back to facility. Nursing is checking to see if patient requires 02 on transport to facility. If 02 is good then she can return via van to facility if she needs 02 then she will need to transport via Ambulance. CM will continue to follow and assist as needed with discharge planning / needs. DCP- Discharge Planning Updated by [id number]: Tasia Gomez on 06/09/19 2:[address] Patient Name: FLASH CHANG Admission Status: ER Accout number: [id number] Admission Date: 06-03-2019 : 1930 Admission Diagnosis:URINARY TRACT INFECTION, SITE NOT SPECIFIED Attending: COLEEN PATEL Current LOS: 6 Anticipated DC Date: 06-05-2019 Planned Disposition: Assisted Living Primary Insurance: MEDICARE PART A ONLY Discharge Planning Comments: LAUREANO MATHIS FROM THE [facility] CALLED AND ASKED IF AT TIME OF DISCHARGE WOULD THE PHYSICIAN HERE PUT IN ORDERS FOR HOME HEALTH [facility] FOR NURSING O & A, PT, OT, ST NEEDED. ALSO REQUESTED ORDER FOR CARE 4 TO DO WOUND CARE. SHE STATES THEY HAD A MEETING WITH THE SON, SON, AND HE REQUESTED [facility]. [facility] IS AN ASSISTED L[facility]ING FAC[facility]. RN STATES THE PCP IS [facility]. CM WILL FOLLOW AND ASSIST. Automatic Profile Shaper Operator: Tasia Gmoez Appended by Tasia Gomez on 06/09/2019 15:53 CDT: [facility] CALLED AND STATES WANTS [facility] FOR THE HH NEEDS. DCP- Discharge Planning Updated by [id number]: Jeanine Gonzalez on 06/04/19 8:[address] Patient Name: FLASH CHANG Admission Status: ER Accout number: [id number] Admission Date: 06-03-2019 : 1930 Admission Diagnosis: Attending: COLEEN PATEL Current LOS: 1 Anticipated DC Date: 06-05-2019 Planned Disposition: Assisted Living Primary Insurance: MEDICARE PART A ONLY Discharge Planning Comments: [facility] PLAN: [facility] DC NEEDS: Son LOPEZ stated he did not feel HH or Rehab is a benefit @ this time. Denied known needs. CM met with patient and her son, Son (JOHN) to complete initial dc planning assessment. CM educated them on the CM role and verbal consent given by Son to complete assessment. CM verified patient's address, phone number, and emergency contact phone numbers. Patient lives at the [facility] on the Assisted Living side. She also has 12 hours a day private caregiver. Son reports she recently had [facility] but it was stopped because the patient was not progressing with therapy. She is currently using a wheelchair for all ambulation. She has oxygen she uses at HS and portability. He reports her O2 sats have been very good and she does not use the portable O2 during the day. Son reports the [facility] and he does not feel hh or any type of rehab will be needed. Son stated he or the [facility] will transport her home at time of discharge. CM will continue to follow and will assist as needed with dc plans/needs. Automatic Profile Shaper Operator: Jeanine Gonzalez DCPIA - Discharge Planning Initial Assessment Updated by [email or web address]: Jeanine Gonzalez on 06/04/19 9:33 am * Is the patient Alert and Oriented? Yes * How many steps to enter\exit or inside your home? None * PCP Using [facility] - Moved here recently. * Pharmacy [facility] * Preadmission Environment Assisted Living * [facility] Also has 12 hours a day caregiver that stays with her. * ADLs Partial Dependent * Partial ADLs (Assistance needed) Ambulation Bathing Dressing Eating Medication Management Toileting Transfers * Equipment Oxygen Walker Wheelchair * Other Equipment Uses the wheelchair only at this time. Not able to ambulate safely with the walker. * List name and contact numbers for known caregivers / representatives who currently or will assist patient after discharge: Son Chang - son POA - [phone] * Verbal permission to speak to the caregivers and representatives has been obtained from the patient. Yes * Community resources currently utilized Assisted Living Private Duty Care * Additional services required to return to the preadmission environment? No * Can the patient safely return to the preadmission environment? Yes * Has this patient been hospitalized within the prior 30 days at any hospital? No Coverage Notice Reviewer: [id number] Monet Contreras Notice Issued Date-Time: 06/08/2019 12:52 Notice Type: IM Discharge Notice Notice Delivered To: Family Member Relationship to Patient: Son Dairy Farm Manager Name: Delivery Method: HAND - Hand Delivered Adelita Days: Prior Verbal Notification: Recipient Understood Notice: Yes Recipient Signature: Yes Med Rec Note Co-signed by Attending: Coverage Notice Comment: Last DP export: 06/10/19 11:41 am Patient Name: FLASH CHANG Page [id number] at 1405 All edits/amendments must be made on the electronic document DICTATION DATE: 06/10/191403 CONSERVATION AGENT: SERGEI 06/10/19 1404 RPT#: [id number] [place] DATE: STATUS: ADM IN [facility] [address] [place] [address] END OF REPORT
--- NOTE | 2019-06-10 15:38 | NUR ---
OT NOTE: PT REQUIRED MAX A WITH SIDE ROLLING. PT REQUIRED MAX A WITH SUPINE TO SIT . PT REQUIRED MAX A WITH TRANSFER. PT COMPLETED HYGIENE TASKS WITH MAX A. PT SON IS ATTENTIVE TO MOTHERS NEEDS. SON ASKED QUESTIONS CONCERNING HH. THANK YOU,CHRISTOFER KENNEDY
--- NOTE | 2019-06-10 15:49 | NUR ---
OT NOTE: MAX ASSIST WITH BED MOB; MAX ASSIST FOR STATIC SITTING; MAX ASSIST WITH TRANSFER FROM BED TO CHAIR. PROVIDED FOAM CUSHION FOR CHAIR, SON REPORTED THAT SHE WAS BEGINNING TO GET SOME REDENED AREAS. ALSO PROVIDED HEEL PROTECTORS WHILE UP IN CHAIR. DEVANG SHEEHAN, OTR/L
--- NOTE | 2019-06-10 17:59 | MORECARE ---
CASE MANAGEMENT DISCHARGE SUMMARY PATIENT: FLASH CHANG UNIT: [id number] ADM DATE: 06/03/19 AGE: 88 : [birth year] SEX: F ROOM/BED: D.1206 AUTHOR: TIMUR,DOC PHYSICIAN: REFERRING PHYSICIAN: COLEEN PATEL MD DATE OF SERVICE: 06/10/19 Discharge Plan Patient Name: FLASH CHANG Facility: [facility]:[place] : 1930 Planned Disposition: Assisted Living Anticipated Discharge Date: 06/05/19 Discharge Date: 06/10/2019 Expected LOS: 2 Initial Reviewer: [email or web address] Initial Review Date: 06/03/2019 Generated: 06/10/19 6:58 pm Comments DCP- Discharge Planning Updated by [id number]: Harleen Contreras on 06/10/19 12:[address] CM was notified by son that he would like Home Health upon discharge. GLENN signed for [facility] and second choice is [facility]. CM called and contacted Ray with [facility] and Ray stated that they would start on Thursday. CM faxed records to [facility] [employer]. CM spoke with Trav @ [facility] regarding d/c orders and transportation back to facility. Nursing is checking to see if patient requires 02 on transport to facility. If 02 is good then she can return via van to facility if she needs 02 then she will need to transport via Ambulance. CM will continue to follow and assist as needed with discharge planning / needs. DCP- Discharge Planning Updated by [email or web address]: Tasia Gomez on 06/09/19 2:[address] Patient Name: FLASH CHANG Admission Status: ER Accout number: [id number] Admission Date: 06-03-2019 : 1930 Admission Diagnosis:URINARY TRACT INFECTION, SITE NOT SPECIFIED Attending: COLEEN PATEL Current LOS: 6 Anticipated DC Date: 06-05-2019 Planned Disposition: Assisted Living Primary Insurance: MEDICARE PART A ONLY Discharge Planning Comments: LAUREANO MATHIS FROM THE [facility] CALLED AND ASKED IF AT TIME OF DISCHARGE WOULD THE PHYSICIAN HERE PUT IN ORDERS FOR HOME HEALTH [facility] FOR NURSING O & A, PT, OT, ST NEEDED. ALSO REQUESTED ORDER FOR CARE 4 TO DO WOUND CARE. SHE STATES THEY HAD A MEETING WITH THE SON, SON, AND HE REQUESTED [facility] AND CARE 4. [facility] IS AN [facility]. RN STATES THE PCP IS [facility]. CM WILL FOLLOW AND ASSIST. Floorwalker: Tasia Gomez Appended by Tasia Gomez on 06/09/2019 15:53 CDT: [facility] CALLED AND STATES WANTS [facility] FOR THE HH NEEDS. DCP- Discharge Planning Updated by [email or web address]: Jeanine Gonzalez on 06/04/19 8:[address] Patient Name: FLASH CHANG Admission Status: ER Accout number: [id number] Admission Date: 06-03-2019 : 1930 Admission Diagnosis: Attending: COLEEN PATEL Current LOS: 1 Anticipated DC Date: 06-05-2019 Planned Disposition: Assisted Living Primary Insurance: MEDICARE PART A ONLY Discharge Planning Comments: [facility] PLAN: [facility] DC NEEDS: Son LOPEZ stated he did not feel HH or Rehab is a benefit @ this time. Denied known needs. CM met with patient and her son, Son (JOHN) to complete initial dc planning assessment. CM educated them on the CM role and verbal consent given by Son to complete assessment. CM verified patient's address, phone number, and emergency contact phone numbers. [facility]. She also has 12 hours a day private caregiver. Son reports she recently had [facility] but it was stopped because the patient was not progressing with therapy. She is currently using a wheelchair for all ambulation. She has oxygen she uses at HS and portability. He reports her O2 sats have been very good and she does not use the portable O2 during the day. Son reports the [facility] will [facility] and he does not feel hh or any type of rehab will be needed. Son stated he or the [facility] will transport her home at time of discharge. CM will continue to follow and will assist as needed with dc plans/needs. Floorwalker: Jeanine Gonzalez DCPIA - Discharge Planning Initial Assessment Updated by [email or web address]: Jeanine Gonzalez on 06/04/19 9:33 am * Is the patient Alert and Oriented? Yes * How many steps to enter\exit or inside your home? None * PCP Using [facility] - Moved here recently. * Pharmacy [facility] * Preadmission Environment Assisted Living * [facility] Also has 12 hours a day caregiver that stays with her. * ADLs Partial Dependent * Partial ADLs (Assistance needed) Ambulation Bathing Dressing Eating Medication Management Toileting Transfers * Equipment Oxygen Walker Wheelchair * Other Equipment Uses the wheelchair only at this time. Not able to ambulate safely with the walker. * List name and contact numbers for known caregivers / representatives who currently or will assist patient after discharge: oSn Chang - son POA - [phone] * Verbal permission to speak to the caregivers and representatives has been obtained from the patient. Yes * Community resources currently utilized Assisted Living Private Duty Care * Additional services required to return to the preadmission environment? No * Can the patient safely return to the preadmission environment? Yes * Has this patient been hospitalized within the prior 30 days at any hospital? No Coverage Notice Reviewer: [id number] Monet Contreras Notice Issued Date-Time: 06/08/2019 12:52 Notice Type: IM Discharge Notice Notice Delivered To: Family Member Relationship to Patient: Son Corporate Sales Trainer Name: Delivery Method: HAND - Hand Delivered Adelita Days: Prior Verbal Notification: Recipient Understood Notice: Yes Recipient Signature: Yes Med Rec Note Co-signed by Attending: Coverage Notice Comment: Last DP export: 06/10/19 1:05 pm Patient Name: FLASH CHANG Page 46896 at 1759 All edits/amendments must be made on the electronic document DICTATION DATE: 06/10/191757 CLERICAL INVESTIGATOR: SERGEI 06/10/191757 RPT#: [id number] DC DATE:06/10/19 STATUS: DIS IN [facility] [address] [place] [address] END OF REPORT
== END 2019-06-10 16:11 | DRG 689 ==
LOC: D.ER 13:10 → D.M3 19:05
PROVIDERS: Family Medicine; Family Medicine Adult Medicine; ADMIT Internal Medicine Nephrology; ATTEND Internal Medicine Nephrology
DX: N39.0 Urinary tract infection, site not specified (principal); G92 Toxic encephalopathy; E43 Unspecified severe protein-calorie malnutrition; E86.0 Dehydration; E83.42 Hypomagnesemia; F03.90 Unspecified dementia, unspecified severity, without behavioral disturbance, psychotic disturbance, mood disturbance, and anxiety; J44.9 Chronic obstructive pulmonary disease, unspecified

== ENCOUNTER 2019-06-14 10:29 | Inpatient (IN) | payer MEDICARE, OTHER ==
[~2019-06-14] VITALS: Ht 170.2 cm; Wt 57.5 kg
[~2019-06-14 10:29] MED LIST changes: +DIFLUCAN100 MG PO; +LEVOFLOXACIN500 MG PO; +MEGACE40 MG PO
[2019-06-14] MEDS ORDERED: DIFLUCAN100 MG PO (10:38)
[2019-06-14] MEDS ORDERED: GUAIFENESI100 MG/5 M PO (10:45)
[2019-06-14] MEDS ORDERED: PRIMSOL50 MG/5 ML PO (10:46)
[2019-06-14] MEDS ORDERED: KLONOPIN0.5 MG PO (10:46)
[2019-06-14] MEDS ORDERED: LEXAPRO20 MG PO (10:47)
[2019-06-14] MEDS ORDERED: CALMOSEPTINE OI71 GM TOPICAL ×2 (10:47→10:49)
[2019-06-14] MEDS ORDERED: ATROVENT 0.02%2.5 ML UPD (10:49)
[2019-06-14] MEDS ORDERED: ACETAMINOPHEN325 MG PO (10:50)
--- NOTE | 2019-06-14 10:57 | NUR ---
PATIENT HAS 18G S-LOC LEFT AC PER EMS.
[2019-06-14 11:51] LABS: BASOPHILS 0.2 % (0-2); EOSINOPHILS 0.1 % (0-7); HEMATOCRIT 34.9 % (36.0-48.0); HEMOGLOBIN 11.4 g/dL (12-16); IMMATURE GRANULOCYTES 0.2 % (0-5); MCH 30.2 pg (26.0-34.0); MCHC 32.7 g/dL (31.0-37.0); MCV 92.3 fL (80.0-100.0); MEAN PLATELET VOLUME 9.7 fL (7.4-10.4); MONOCYTES 3.9 % (2-11); NEUTROPHILS 90.6 % (40-80); RBC 3.78 10x6/uL (4.00-5.40); RDW 14.3 % (11.5-14.5); WBC 15.4 10x3/uL (4.8-10.8)
[2019-06-14 11:53] LABS: PLATELET COUNT 363 10x3/uL (130-400)
[2019-06-14 12:03] LABS: APTT 25.5 SECONDS (22.8-39.4); INR 1.14 (0.85-1.17); PROTIME 14.1 SECONDS (11.6-15.0)
[2019-06-14 12:09] LABS: ALBUMIN 2.4 g/dL (3.4-5.0); ALKALINE PHOSPHATASE 84 U/L (46-116); ALT (SGPT) 18 U/L (10-68); CALC OSMOLALITY 285 mosm/kg (275-300); CALCIUM 8.9 mg/dL (8.5-10.1); CARBON DIOXIDE 33.6 mmol/L (21.0-32.0); CHLORIDE - SERUM 105 mmol/L (98-107); CREATININE - SERUM 0.9 mg/dL (0.6-1.3); GLUCOSE 107 mg/dL (74-106); POTASSIUM - SERUM 3.9 mmol/L (3.5-5.1); PROTEIN - SERUM 6.6 g/dL (6.4-8.2); SODIUM 143 mmol/L (136-145); UREA NITROGEN 14 mg/dL (7-18); eGFR NON AFRICAN AMERICAN 62 mL/min (90-120)
[2019-06-14 12:21] LABS: CREATINE KINASE 42 UL (21-215)
[2019-06-14 12:45] LABS: APPEARANCE CLEAR (CLEAR); BILIRUBIN NEGATIVE (NEGATIVE); COLOR YELLOW (YELLOW); GLUCOSE NEGATIVE (NEGATIVE); KETONE NEGATIVE (NEGATIVE); NITRITE NEGATIVE (NEGATIVE); PROTEIN NEGATIVE (NEGATIVE); SPECIFIC GRAVITY 1.015 (1.005-1.020); UROBILINOGEN NORMAL (NORMAL)
[2019-06-14 12:46] LABS: BACTERIA FEW /hpf (NONE SEEN); EPITHELIAL CELLS 0-5 /hpf (0-5); RED CELLS - URINE 0-5 /hpf (0-5); WHITE CELLS - URINE 0-5 /hpf (0-5); YEAST <1+ /hpf (NONE SEEN)
--- NOTE | 2019-06-14 13:55 | MORECARE ---
CASE MANAGEMENT DISCHARGE SUMMARY PATIENT: FLASH CHANG UNIT: [id number] ADM DATE: 06/14/19 AGE: 88 : [birth year] SEX: F ROOM/BED: D.2136 AUTHOR: PAM DING PHYSICIAN: REFERRING PHYSICIAN: COLEEN PATEL MD DATE OF SERVICE: 06/14/19 Discharge Plan Patient Name: FLASH CHANG Facility: [facility]:[place] : 1930 Planned Disposition: Assisted Living Anticipated Discharge Date: 06/17/19 Discharge Date: Expected LOS: 3 Initial Reviewer: [email or web address] Initial Review Date: 06/14/2019 Generated: 06/14/19 2:55 pm DCPIA - Discharge Planning Initial Assessment Updated by [email or web address]: Jeanine Gonzalez on 06/14/19 1:51 pm * Is the patient Alert and Oriented? No * How many steps to enter\exit or inside your home? None * PCP Using [facility] - recently moved here. Not established with a pcp. * Pharmacy [facility] * Preadmission Environment Assisted Living * [facility] * ADLs Total Dependent * Equipment Oxygen Rolling Walker Wheelchair * Other Equipment Bed/Chair bound * List name and contact numbers for known caregivers / representatives who currently or will assist patient after discharge: Mannie Chang - elmer A - [phone] * Verbal permission to speak to the caregivers and representatives has been obtained from the patient. Yes * Community resources currently utilized Home Health * Please name any agencies selected above. [facility] GLENN signed by Mannie in the ER for resumption. * Additional services required to return to the preadmission environment? No * Can the patient safely return to the preadmission environment? Yes * Has this patient been hospitalized within the prior 30 days at any hospital? Yes Patient Name: FLASH CHANG Page 57567 at 1355 All edits/amendments must be made on the electronic document DICTATION DATE: 06/14/19 1355 CORE INSPECTOR: SERGEI 06/14/19 1355 RPT#: [id number] DC DATE: STATUS: ADM IN [facility] [address] [place] [address] END OF REPORT
--- NOTE | 2019-06-14 14:04 | MORECARE ---
CASE MANAGEMENT DISCHARGE SUMMARY PATIENT: FLASH CHANG UNIT: [id number] ADM DATE: 06/14/19 AGE: 88 : [birth year] SEX: F ROOM/BED: D.9266 AUTHOR: PAM DING PHYSICIAN: REFERRING PHYSICIAN: COLEEN PATEL MD DATE OF SERVICE: 06/14/19 Discharge Plan Patient Name: FLASH CHANG Facility: [facility]:[place] : 1930 Planned Disposition: Assisted Living Anticipated Discharge Date: 06/17/19 Discharge Date: Expected LOS: 3 Initial Reviewer: [email or web address] Initial Review Date: 06/14/2019 Generated: 06/14/19 3:04 pm DCP- Discharge Planning Updated by [id number]: Jeanine Gonzalez on 06/14/19 12:[address] DC PLAN: [facility] - [facility] DC NEEDS: [facility] and 12 hours private pd caregivers. CM met with patient and her son, Mannie (JOHN) to complete initial dc planning assessment. CM educated them on the CM role and verbal consent given by Mannie to complete assessment. CM verified patient's address, phone number, and emergency contact phone numbers. Patient lives at the [facility] on the Assisted Living side. She also has 12 hours a day private caregiver. Mannie reports after discharge 4 days ago she had [facility]. Nursing and PT has made visit and OT was to come make visit today. He stated he has notified Alda of the hospital admission. GLENN signed by Mannie for resumption of [facility] services at discharge. She is currently using a wheelchair for all ambulation. She has oxygen she uses at HS and portability. He reports her O2 sats have been very good and she does not use the portable O2 during the day. Mannie stated over the past two days patient has not taken in adequate po intake and her breathing just kept getting worse. Mannie reports the [facility] will [facility] and will resume [facility] and the 12 hours of cg services daily. Mannie stated he or the [facility] will transport her home at time of discharge. CM will continue to follow and will assist as needed with dc plans/needs. DCPIA - Discharge Planning Initial Assessment Updated by [email or web address]: Jeanine Gonzalez on 06/14/19 1:51 pm * Is the patient Alert and Oriented? No * How many steps to enter\exit or inside your home? None * PCP Using [facility] - recently moved here. Not established with a pcp. * Pharmacy [facility] * Preadmission Environment Assisted Living * Facility [facility] * ADLs Total Dependent * Equipment Oxygen Rolling Walker Wheelchair * Other Equipment Bed/Chair bound * List name and contact numbers for known caregivers / representatives who currently or will assist patient after discharge: Mannie Chang - son POA - [phone] * Verbal permission to speak to the caregivers and representatives has been obtained from the patient. Yes * Community resources currently utilized Home Health * Please name any agencies selected above. [facility] - GLENN signed by Mannie in the ER for resumption. * Additional services required to return to the preadmission environment? No * Can the patient safely return to the preadmission environment? Yes * Has this patient been hospitalized within the prior 30 days at any hospital? Yes Last DP export: 06/14/19 12:55 p Patient Name: FLASH CHANG Page 44792 at 1404 All edits/amendments must be made on the electronic document DICTATION DATE: 06/14/19 140 DEALER CARD ROOM: SERGEI 06/14/19 140 RPT#: [id number] DC DATE: STATUS: ADM IN [facility] [address] [place] [address] END OF REPORT
[2019-06-14 15:33] VITALS: BP 178/90
[2019-06-14 16:00] VITALS: BP 178/101; BMI 16.3
--- NOTE | 2019-06-14 19:42 | NUR ---
CALLED [facility] FOR MEDS. [facility]OGDAN GAVE ORDERS, WILL FOLLOW. PATIENT'S PRIVATE CAREGIVER STATED WHEN PATIENT IS ABLE TO TAKE MEDICATIONS AGAIN THEY HAVE TO B E CRUSHED SHE IS UNABLE TO TAKE THEM WHOLE. WILL PASS THIS ALONG IN REPORT.
[2019-06-14 20:00] VITALS: BP 186/97
--- NOTE | 2019-06-14 20:56 | NUR ---
TALKED WITH DR. CANALES ABOUT PATIENT'S CONDITION. DAY NURSE STATED PATIENT IS A DNR. THERE IS NO DNR FORM ON FILE. CALLED THE [facility] TO FAX DOCUMENTATION THAT THEY HAVE AND LIVING WILL. I HAVE CALLED FAMILY MEMBER WHICH I HAVE GOTTEN NO RESPONSE OR CALL BACK WILL CONTINUE TO REACH OUT.
--- NOTE | 2019-06-14 21:16 | NUR ---
TALKED WITH PATIENT'S SON, NAHOMI LOPEZ AND HE GAVE VERBAL CLARIFICATION TO ELIO TINSLEYHOMOGENIZER OPERATOR AND SARY RN FOR DNR STATUS CALLED TAHIRA GARRIDO TO INFORM HIM AND HE STATED HE WILL COME TO THE FLOOR AND TAKE CARE OF THE REST.
--- NOTE | 2019-06-14 21:35 | NUR ---
SUCTIONED APPROX 5 CC WHITE PHARENGEAL SECRETIONS WITH JOSH
[2019-06-15] VITALS (36 sets, daily range): BP systolic 121–183; BP diastolic 57–97; Ht 170.2 cm; Wt 57.5 kg
[2019-06-15 01:02] LABS: CREATINE KINASE 95 UL (21-215); TROPONIN-I 0.054 ng/mL (0.000-0.060)
--- NOTE | 2019-06-15 01:15 | NUR ---
TALKED WITH BOGDAN GARRIDO ABOUT PATIENT'S HIGH B/P, BOGDAN ROMAN'D TO GIVE NEXT DOSE NOW. WILL HAVE RN GIVE MEDICATION.
--- NOTE | 2019-06-15 01:47 | NUR ---
INSERTED SUPP TYLENOL. REPLACED PATIENT'S GOWN BECAUSE PATIENT IS SWEATING. REPOSITIONED PATIENT. TO LEFT SIDE. PATIENT HAS FACIAL GRIMACING WHENEVER YOU TOUCH HER ABD. WHEN ASKED IF IT HURT SHE REPLIED WITH CAREY. ASKED 3X AND EVEYTIME SHE REPLIED WITH CAREY.
--- NOTE | 2019-06-15 02:12 | NUR ---
STAPLING MACHINE OPERATOR INFORMED ME PATIENT'S HEART RATE IS IN THE 190'S. BOGDAN GARRIDO PAGED.
--- NOTE | 2019-06-15 02:35 | NUR ---
NO NEW ORDERS FOR BOGDAN GARRIDO.
--- NOTE | 2019-06-15 04:30 | NUR ---
PT LETHARGIC, AROUSES BRIEFLY WITH VERBAL STIMULI BUT DOES NOT FOLLOW COMMANDS OR ANSWER QUESTIONS. PUPILS EQUAL AND REACTIVE. SOB, CRACKLES HEARD THROUGHOUT LUNG CANCHOLA. BIPAP IN PLACE AT 40%, SPO2 96-97. SINUS TACH ON MONITOR, RATE 115-130. PERIPHERAL PULSES PRESENT. STOMACH FLAT, BOWEL SOUNDS HYPOACTIVE IN ALL QUADRANTS. PEREA CATH INTACT WITH SHARYN URINE TO BEDSIDE DRAINAGE. EDEMA PRESENT TO RUE, PT REPOSITIONED AND PROMINENCES BRIDGED. FAMILY AT BEDSIDE, UPDATE PROVIDED AND QUESTIONS ANSWERED. WILL CONTINUE TO MONITOR.
[2019-06-15 06:11] LABS: BASOPHILS 0.1 % (0-2); EOSINOPHILS 0 % (0-7); HEMATOCRIT 35.7 % (36.0-48.0); HEMOGLOBIN 11.7 g/dL (12-16); IMMATURE GRANULOCYTES 0.3 % (0-5); LYMPHOCYTES 2.7 % (15-50); MCH 30.2 pg (26.0-34.0); MCHC 32.8 g/dL (31.0-37.0); MCV 92.2 fL (80.0-100.0); MEAN PLATELET VOLUME 9.6 fL (7.4-10.4); MONOCYTES 2.9 % (2-11); PLATELET COUNT 351 10x3/uL (130-400); RBC 3.87 10x6/uL (4.00-5.40); RDW 14.6 % (11.5-14.5); WBC 14.1 10x3/uL (4.8-10.8)
[2019-06-15 06:30] LABS: ANION GAP 13.4 mmol/L (8-16); CALCIUM 8.9 mg/dL (8.5-10.1); CARBON DIOXIDE 28.3 mmol/L (21.0-32.0); CREATININE - SERUM 1.1 mg/dL (0.6-1.3); MAGNESIUM - SERUM 1.5 mg/dL (1.8-2.4); PHOSPHOROUS 3.3 mg/dL (2.5-4.9); POTASSIUM - SERUM 3.7 mmol/L (3.5-5.1); VANCOMYCIN - RANDOM 5.3 ug/mL (10.0-20.0)
--- NOTE | 2019-06-15 07:45 | NUR ---
PATIENT IS NONVERBAL. DISORIENTED X4. PASSCODE SET: NAVARRO. FAMILY IS AT BEDSIDE AWAITING TO SPEAK TO DR. CANALES. SON IS POA. EXPIRATORY WHEEZES BILATERAL. DIMINISHED LOWER LOBES. PATIENT ON BIPAP. FAMILY WANTING NASAL CANNULA. PULSES PALP. SINUS TACH. DENIES PAIN AT THIS TIME.
--- NOTE | 2019-06-15 09:30 | NUR ---
DR CANALES AT BEDSIDE. UPDATE GIVE.
--- NOTE | 2019-06-15 09:40 | NUR ---
DR CANALES SPOKE WITH FAMILY REGARDING PROGNOSIS. NUTRITION WILL BE STARTED. AWAITING ORDERS.
--- NOTE | 2019-06-15 12:30 | NUR ---
PATIENT IS SLEEPING. FAMILY IS AT BEDSIDE. ANSWERED QUESTIONS THAT FAMILY HAD. EDUCATED ON MEDICATION SHE IS ON. NO DISTRESS NOTED. NO CHANGES FROM REASSESMENT. PATIENT TURNED. PATIENT ON NASAL CANNULA 4L. REFUSED ORAL CARE. LIPS CHAPPED BUT WOULD NOT ALLOW ME TO PUT CHAPSTICK ON. LEFT AC IN TACT. WILL CONTINUE TO MONITOR
--- NOTE | 2019-06-15 14:56 | NUR ---
SWALLOW EVAL AT BEDSIDE.
--- NOTE | 2019-06-15 17:00 | NUR ---
PATIENT SLEEPING. NO DISTRESS NOTED. EXPIRATORY WHEEZES BILAT. DIMINISHED LOBES. PATIENT DOESNT FOLLOW COMMANDS. BED LOW AND LOCKED. CALL LIGHT WITHINR EACH. LINES CAPPED AND LABELED. WILL CONTINUE TO MONITOR
--- NOTE | 2019-06-15 20:00 | NUR ---
BEDSIDE REPORT AND SHIFT ASSESSMENT COMPLETE. PT DISORIENTED, LETHARGIC, UNABLE TO VERBALLY RESPOND. AROUSES TO PAIN AND STIMULI. L AC PIV DRESSING CDI, WNL. WILL CONTINUE TO MONITOR.
--- NOTE | 2019-06-15 21:00 | NUR ---
BOGDAN ROBERTO APN AT BEDSIDE, UPDATE GIVEN. WILL CONTINUE TO MONITOR.
--- NOTE | 2019-06-15 23:00 | NUR ---
REASSESSMENT COMPLETE. VSS, NO SIGNS OF ACUTE DISTRESS NOTED. PT CONFUSED, LETHARGIC. REPOSITIONING COMPLETE. WILL CONTINUE TO MONITOR.
[2019-06-16] VITALS (26 sets, daily range): BP systolic 113–172; BP diastolic 57–89
--- NOTE | 2019-06-16 01:00 | NUR ---
PT SLEEPING. VSS, NO SIGNS OF ACUTE DISTRESS NOTED. WILL CONTINUE TO MONITOR.
--- NOTE | 2019-06-16 03:00 | NUR ---
REASSESSMENT COMPLETE, SEE FLOWSHEET. VSS, NO SIGNS OF ACUTE DISTRESS NOTED. PT SLEEPING, WILL CONTINUE TO MONITOR.
--- NOTE | 2019-06-16 05:00 | NUR ---
CHG BATH, PEREA CARE, AND LINEN CHANGE COMPLETE. AIR OVERLAY MATTRESS PLACED ON BED. REPOSITIONING COMPLETE. VSS, NO SIGNS OF ACUTE DISTRESS NOTED. WILL CONTINUE TO MONITOR.
[2019-06-16 05:37] LABS: BASOPHILS 0.1 % (0-2); EOSINOPHILS 0.1 % (0-7); HEMATOCRIT 33.9 % (36.0-48.0); IMMATURE GRANULOCYTES 0.4 % (0-5); LYMPHOCYTES 4.8 % (15-50); MCHC 32.4 g/dL (31.0-37.0); MCV 92.4 fL (80.0-100.0); MEAN PLATELET VOLUME 9.5 fL (7.4-10.4); MONOCYTES 3.7 % (2-11); NEUTROPHILS 90.9 % (40-80); PLATELET COUNT 362 10x3/uL (130-400); RBC 3.67 10x6/uL (4.00-5.40); RDW 14.7 % (11.5-14.5); WBC 14.1 10x3/uL (4.8-10.8)
[2019-06-16 06:09] LABS: ANION GAP 13.9 mmol/L (8-16); CALCIUM 8.5 mg/dL (8.5-10.1); CARBON DIOXIDE 26.1 mmol/L (21.0-32.0); MAGNESIUM - SERUM 1.7 mg/dL (1.8-2.4); PHOSPHOROUS 2.7 mg/dL (2.5-4.9)
[2019-06-16 06:13] LABS: CREATININE - SERUM 0.8 mg/dL (0.6-1.3)
--- NOTE | 2019-06-16 07:00 | NUR ---
SHIFT ASSESSMENT COMPELTED. PT CARE ASSUMED, MONITORS ON AND WORKING VITALS STABLE. PT LETHAGRIC, DOBHOFF PLACEMENT COMFIRMED VIA IMAGING. WILL START TUBE FEEDS THIS AM, CALL LIGHT WITHIN REACH, WILL CONTINUE TO OBSERVE.
--- NOTE | 2019-06-16 09:00 | NUR ---
PT TURNED AND REPOSITIONED FOR COMFORT, MONITORS ON AND WORKING VITALS STABLE. FAMILY AT BEDSIDE, UPDATE PROVIDED, DR PATEL AT BEDSIDE SPEAKING WITH PTS SON. STARTED TUBE FEEDS PER ORDERS. WILL CONTINUE TO OBSERVE.
--- NOTE | 2019-06-16 11:00 | NUR ---
NO CHANGES, SEE FLOW SHEET FOR FURTHER DETAILS. WILL CONTINUE TO OBSERVE.
--- NOTE | 2019-06-16 13:00 | NUR ---
PT TURNED AND REPOSITIONED FOR COMFORT, MONITORS ON AND WORKING, VITALS STABLE. CALL LIGHT WITHIN REACH, WILL CONTINUE TO OBSERVE.
--- NOTE | 2019-06-16 14:31 | EC ---
PATIENT:FLASH JOSE DATE OF SERVICE: 06/14/19 SEX: F MEDICAL RECORD: [id number] DATE OF : [birth year] LOCATION:[facility] D.230 AGE OF PATIENT: 88 ADMISSION DATE: 06/14/19 REFERRING PHYSICIAN: INTERPRETING PHYSICIAN: KI SANCHEZ MD ECHOCARDIOGRAM REPORT ECHO CHARGES 4 ECHO COMPLETE Date: 06/15/19 CLINICAL DIAGNOSIS: CHF/PULMONARY EDEMA ECHOCARDIOGRAPHIC MEASUREMENTS (adult normal given) AC root (d.<3.7cm) 3.1 cm LV Septum d (<1.2 cm> 1.5 cm Valve Excursion 2.2 cm LV Septum (systole) 2.1 cm Left Atria (s.<4.0cm> 3.2 cm LVPW d(<1.2cm) 1.5 cm RV (d.<2.3cm) 2.2 cm LVPW (sytole) 2.1 cm LV diastole(<5.6CM) 4.1 cm MV E-F(>70mm/sec) cm LV systole 1.8 cm LVOT Diameter 1.8 cm MV exc.(>10mm) cm Est.ejection fraction (50-75%) % DOPPLER: LVIT cm/sec A 87.0 cm/sec E 65.0 cm/sec LA cm/sec RVSP 51.0 mmHg LVOT 136 cm/sec AOP1/2T m/s Asc. Ao 157 cm/sec RVOT 86.0 cm/sec RA cm/sec PA 115 cm/sec AV Gradient Peak 9.8 mmHg AV Mean 4.3 mmHg AV Area 2.1 cm MV Gradient Peak 4.4 mmHg MV Mean 1.7 mmHg MV Area cm COMMENTS: Central Office Repairer: Marlon COTTRELL Commercial Estimator: 1 Dr. Sanchez TAPE# PACS Pericardial Effusion N DATE OF SERVICE: 06/15/2019 FINDINGS: 1. Left ventricular chamber size is within normal limits. Left ventricular systolic function is mildly reduced at 45% to 50%. 2. Left atrium, right atrium, and right ventricle chamber sizes are within normal limits. 3. Valvular structures have normal structure and motion. 4. Doppler interrogation reveals trace aortic insufficiency, trace mitral regurgitation, mild tricuspid regurgitation, no other valvular insufficiency or ECHOCARDIOGRAM REPORT [id number] FLASH JOSE stenosis. Pulmonary systolic pressure is elevated at 51 mmHg. 5. No evidence of pericardial effusion or left ventricular thrombus. TRANSINT:[id number] Voice Confirmation ID: [id number] DOCUMENT ID: [id number] KI SANCHEZ MD at 1431 CC: [id number] DICTATION DATE: 06/15/19 1711 FIBRE COMPOSITE TECHNICIAN: 06/15/19 2342 ADM IN [facility] [address] [place] [address]
--- NOTE | 2019-06-16 14:52 | NUR ---
Nutrition follow-up: Osmolite 1.0 adam started via Dobhoff tube @ 15 ml/hr today. Waiting to start 2/2 tube placement issues. Labs reviewed Wt: 100# RDN will monitor patients TF tolerance closely and adjust TF rate as needed. Following.
--- NOTE | 2019-06-16 15:00 | NUR ---
PT TURNED AND REPOSITIONED FOR COMFORT, MONITORS ON AND WORKING, VITALS STABLE, SEE FLOW SHEET FOR FURTHER DETAILS. ,WILL CONTINUE TO OBSERVE.
--- NOTE | 2019-06-16 17:00 | NUR ---
FAMILY AT BEDSIDE, UPDATE PROVIDED. NO CHANGES, PT TOLERATING TUBE FEEDS WELL, ALONG WITH PUREE DIET AND THICKEND LIQUIDS, CALL LIGHT WITHIN REACH, WILL CONTINUE TO OBSERVE.
--- NOTE | 2019-06-16 19:00 | NUR ---
SHIFT ASSESSMENT CONMPLETE. VS STABLE. NO VISUAL CUES OF DISTRESS NOTED. WILL CONTINUE TO MONITOR.
--- NOTE | 2019-06-16 21:00 | NUR ---
VS STABLE. NO VISUAL CUES OF DISTRESS NOTED. WILL CONTINUE TO MONITOR.
--- NOTE | 2019-06-16 23:00 | NUR ---
VS STABLE. NO VISUAL CUES OF DISTRESS NOTED. WILL CONTINUE TO MONITOR.
[2019-06-17] VITALS (15 sets, daily range): BP systolic 132–162; BP diastolic 55–93
--- NOTE | 2019-06-17 01:00 | NUR ---
VS STABLE. NO VISUAL CUES OF DISTRESS NOTED. WILL CONTINUE TO MONITOR.
--- NOTE | 2019-06-17 03:00 | NUR ---
VS STABLE. NO VISUAL CUES OF DISTRESS NOTED. WILL CONTINUE TO MONITOR.
--- NOTE | 2019-06-17 05:00 | NUR ---
VS STABLE. NO VISUAL CUES OF DISTRESS NOTED. WILL CONTINUE TO MONITOR.
--- NOTE | 2019-06-17 08:37 | NUR ---
NOTED THAT DENTURES IN/UPPERS. UPPER DENTURES TAKEN OUT. AND MOUTH CARE DONE. SON AT BS AND INSTRUCTED IMPORTANCE OF ABSENCE OF DENTURES FOR NOW FOR MOUTH CARE. PT HAS COUGH AND DOES NOT APPERA TO SWALLOW AFTER COUGH AND DOES NOT APPEAR TO SPIT. SUCTION TO BACK OF THROAT. NOTHING TO SUCTION OUT. SPOKE TO SUSAN WITH NUTRITION. WILL KEEP NPO AND ASSESS SWALLOWING EFFORT THROUGH OUT THIS DAY. WILL SPEAK WITH
--- NOTE | 2019-06-17 09:02 | NUR ---
NUTRITION F/U CHART REVIEWED, PT/FAMILY VISIT. NURSING TO HOLD DIET UNTIL PT SEEN BY SPEECH THERAPY AGAIN FAMILY REPORTS PT COUGHING WITH LIQUIDS. INFORMED NURSING OF TUBE FEED GOAL RATE. RD FOLLOWING
[2019-06-17 09:38] LABS: BASOPHILS 0.1 % (0-2); EOSINOPHILS 1.9 % (0-7); HEMATOCRIT 34.2 % (36.0-48.0); IMMATURE GRANULOCYTES 0.3 % (0-5); LYMPHOCYTES 8.3 % (15-50); MCH 29.9 pg (26.0-34.0); MCHC 32.2 g/dL (31.0-37.0); MCV 92.9 fL (80.0-100.0); MONOCYTES 4.4 % (2-11); PLATELET COUNT 367 10x3/uL (130-400); RBC 3.68 10x6/uL (4.00-5.40); RDW 14.5 % (11.5-14.5)
[2019-06-17 09:56] LABS: CALC OSMOLALITY 301 mosm/kg (275-300); CARBON DIOXIDE 31.1 mmol/L (21.0-32.0); CHLORIDE - SERUM 115 mmol/L (98-107); CREATININE - SERUM 0.7 mg/dL (0.6-1.3); GLUCOSE 110 mg/dL (74-106); MAGNESIUM - SERUM 1.8 mg/dL (1.8-2.4); SODIUM 151 mmol/L (136-145); UREA NITROGEN 14 mg/dL (7-18); eGFR NON AFRICAN AMERICAN 83 mL/min (90-120)
[2019-06-17 09:59] LABS: PHOSPHOROUS 1.9 mg/dL (2.5-4.9)
[2019-06-17 10:02] LABS: POTASSIUM - SERUM 2.8 mmol/L (3.5-5.1)
--- NOTE | 2019-06-17 17:27 | NUR ---
RECEIVED PT VIA BED FROM CVICU IN STABLE CONDITION SON AT BEDSIDE DENIES ANY NEEDS NAD NOTED
--- NOTE | 2019-06-17 19:39 | NUR ---
RECEIVED BEDSIDE REPORT. PATIENT IS RESTING COMFORTABLY IN BED. RESPIRATIONS ARE EVEN AND UNLABORED. NO S/S OF DISTRESS. NO C/O PAIN. CALL LIGHT WITHIN REACH. WILL CPOC.
[2019-06-18] VITALS: BP 156/88
[2019-06-18 04:00] VITALS: BP 187/82
[2019-06-18 05:20] LABS: BASOPHILS 0.3 % (0-2); EOSINOPHILS 4.9 % (0-7); HEMATOCRIT 36.7 % (36.0-48.0); HEMOGLOBIN 11.7 g/dL (12-16); IMMATURE GRANULOCYTES 0.4 % (0-5); MCH 29.9 pg (26.0-34.0); MCHC 31.9 g/dL (31.0-37.0); MCV 93.9 fL (80.0-100.0); MEAN PLATELET VOLUME 9.8 fL (7.4-10.4); MONOCYTES 5.7 % (2-11); NEUTROPHILS 73.7 % (40-80); PLATELET COUNT 355 10x3/uL (130-400); RBC 3.91 10x6/uL (4.00-5.40); RDW 14.6 % (11.5-14.5); WBC 9.7 10x3/uL (4.8-10.8)
[2019-06-18 05:44] LABS: CALC OSMOLALITY 288 mosm/kg (275-300); CARBON DIOXIDE 30.1 mmol/L (21.0-32.0); CHLORIDE - SERUM 112 mmol/L (98-107); CREATININE - SERUM 0.6 mg/dL (0.6-1.3); GLUCOSE 103 mg/dL (74-106); PHOSPHOROUS 2.2 mg/dL (2.5-4.9); POTASSIUM - SERUM 3.7 mmol/L (3.5-5.1); SODIUM 145 mmol/L (136-145); UREA NITROGEN 12 mg/dL (7-18); VANCOMYCIN - TROUGH 20.5 ug/mL (10.0-20.0); eGFR NON AFRICAN AMERICAN > 90 mL/min (90-120)
--- NOTE | 2019-06-18 07:15 | NUR ---
PT RESTING IN BED WITH BIPAP ON. NO DISTRESS NOTED AT THIS TIME, SHIFT ASSESSMENT PERFORMED. WILL CONT TO FOLLOW POC
--- NOTE | 2019-06-18 08:30 | NUR ---
PT SON CAME IN ROOM AND ASKED NURSE TO REMOVE BIAPAP. ADVISED SON THAT WE CAN TAKE OFF BIPAP BUT PT O2 WILL DROP. ASKED SON IF HE WANTS TO SEEK ACTIVE TREATMENT FOR DROPPING O2 AND PT SON ADVISED NURSE THAT HE DOES WANT ACTIVE TREATMENT. REMOVED BIPAP AND PLACED PT ON 4L HIFLO NC. ALERTED RT AND JUMA MOY
[2019-06-18 08:53] VITALS: BP 140/78
--- NOTE | 2019-06-18 10:36 | NUR ---
PATIENT ON 40% VM AFTER ABG DRAW. SON/FAMILY MEMBER IN ROOM AND AWARE OF LOW SATURATION. HE IS REFUSING BIPAP. RN NOTIFIED OF ABG.
--- NOTE | 2019-06-18 12:10 | NUR ---
PT ATE A FEW BITES FOR LUNCH, DENIES ANY NEEDS AT THIS TIME, FAMILY AT BEDSIDE. WILL CONT TO FOLLOW POC
[2019-06-18 13:54] VITALS: BP 159/74
--- NOTE | 2019-06-18 15:08 | NUR ---
PIV TO PT LEFT ARM INFILTRATED. PIV REMOVED WITH CATHETER TIP INTACT. 22G PIV INSERTED TO PT RIGHT FA X1 ATTEMPT. PT TOLERATED WELL.
--- NOTE | 2019-06-18 17:48 | MORECARE ---
CASE MANAGEMENT DISCHARGE SUMMARY PATIENT: FLASH CHANG UNIT: [id number] ADM DATE: 06/14/19 AGE: 88 : [birth year] SEX: F ROOM/BED: D.9632 AUTHOR: TIMUR,DOC PHYSICIAN: REFERRING PHYSICIAN: COLEEN PATEL MD DATE OF SERVICE: 06/18/19 Discharge Plan Patient Name: FLASH CHANG Facility: [facility]:[place] : 1930 Planned Disposition: Assisted Living Anticipated Discharge Date: 06/17/19 Discharge Date: Expected LOS: 3 Initial Reviewer: [email or web address] Initial Review Date: 06/14/2019 Generated: 06/18/19 6:47 pm Comments DCP- Discharge Planning Updated by [email or web address]: Jeanine Gonzalez on 06/18/19 4:[address] CM met with patients son Mannie CANTU) who stated his mother was not doing well and hs is wanting to keep her on comfort measures. He no longer wants to have her on the BIPAP. CM asked if he wanted to consider hospice services. He asked if she could stay on the IV antibiotics and tube feedings. CM informed him that I could have a hospice rep come talk with him and discuss / answer any questions he has. KARIS did inform him that most cases the antibiotics & tube feeds are stopped but that was something hospice would have to answer for him. GLENN form presented, explained, and signed by Mannie for [facility] rep to come and answer questions for the family that is here. KARIS spoke to Virgil Maddox with [facility] who stated he could come this evening around 1815 to meet with the family. GLENN form placed on chart. Jeanine Gonzalez RN, CCM DCP- Discharge Planning Updated by [email or web address]: Jeanine Gonzalez on 06/14/19 12:[address] [facility] PL[facility] NEEDS: [facility] and 12 hours private pd caregivers. KARIS met with patient and her son, Mannie CANTU) to complete initial dc planning assessment. CM educated them on the CM role and verbal consent given by Mannie to complete assessment. CM verified patient's address, phone number, and emergency contact phone numbers. [facility]. She also has 12 hours a day private caregiver. Mannie reports after discharge 4 days ago she had [facility]. Nursing and PT has made visit and OT was to come make visit today. He stated he has notified Alda of the hospital admission. GLENN signed by Mannie for resumption of [facility] services at discharge. She is currently using a wheelchair for all ambulation. She has oxygen she uses at HS and portability. He reports her O2 sats have been very good and she does not use the portable O2 during the day. Mannie stated over the past two days patient has not taken in adequate po intake and her breathing just kept getting worse. Mannie reports the [facility] and will resume [facility] and the 12 hours of cg services daily. Mannie stated he or the [facility] will transport her home at time of discharge. CM will continue to follow and will assist as needed with dc plans/needs. DCPIA - Discharge Planning Initial Assessment Updated by [email or web address]: Jeanine Gonzalez on 06/14/19 1:51 pm * Is the patient Alert and Oriented? No * How many steps to enter\exit or inside your home? None * PCP Using [facility] - recently moved here. Not established with a pcp. * Pharmacy [facility] * Preadmission Environment Assisted Living * Facility Name [facility] * ADLs Total Dependent * Equipment Oxygen Rolling Walker Wheelchair * Other Equipment Bed/Chair bound * List name and contact numbers for known caregivers / representatives who currently or will assist patient after discharge: Mannie Chang - elmer LOPEZ - [phone] * Verbal permission to speak to the caregivers and representatives has been obtained from the patient. Yes * Community resources currently utilized Home Health * Please name any agencies selected above. [facility] signed by Mannie in the ER for resumption. * Additional services required to return to the preadmission environment? No * Can the patient safely return to the preadmission environment? Yes * Has this patient been hospitalized within the prior 30 days at any hospital? Yes Last DP export: 06/14/19 1:04 p Patient Name: FLASH CHANG Page [id number] at 9610 All edits/amendments must be made on the electronic document DICTATION DATE: 06/18/191746 MECHANICAL ENERGY ENGINEER: SERGEI 06/18/191746 RPT#: [id number] DC DATE: STATUS: ADM IN [facility] [address] [place] [address] END OF REPORT
[2019-06-18 18:25] VITALS: BP 140/75
[2019-06-18 20:00] VITALS: BP 134/64
--- NOTE | 2019-06-18 22:54 | NUR ---
INITIAL ROUNDS COMPLTED AT 1920 HRS. FAMILY AT BEDSIDE. ASSESSMENT COMPLETED AT 2024 HRS. PT INCONTINENT OF STOOL. INCONTINENT CARE DONE. MEPILEX NOTED TO COCCYX. REPOSITIONED ONTO L SIDE. VSS. ST PER CM HR 102. RESP LABORED WITH 15L NON-REBREATHER MASK. COSRSE RHONCHI NOTED TO ALL LUNG CANCHOLA. ABS SOFT WITH ACTIVE BS NOTED. PEREA DRAINING YELLOW URINE. IV TO LFA WITH CARDIZEM AT 5CC/HR AND 1/5NS AT 30CC/HR. IV PATENT. HEEL PROTECTORS IN USE. PT ON AIR OVERLAY. FAMILY REQUESTING PT TO HAVE HER HS [facility]. [facility] CALLED AT 2030 HRS. aDfne DURANT RETURNS CALL. ORDER OBTAINED. [place] 0.5MG VIA DOBHOFF GIVEN. [facility] HERE TO [facility]. PT CURRENTLY RESTING WITH EYES CLOSED. RESP EVEN AND REG. SR UP X2, CALL LIGHT WITHIN REACH AND FAMILY AT BEDSIDE.
--- NOTE | 2019-06-18 23:28 | NUR ---
PT TO BE ADMITTED TO HOSPICE. FAMILY AT BEDSIDE.
--- NOTE | 2019-06-20 08:17 | MORECARE ---
CASE MANAGEMENT DISCHARGE SUMMARY PATIENT: FLASH CHANG UNIT: [id number] ADM DATE: 06/14/19 AGE: 88 : [birth year] SEX: F ROOM/BED: D.6662 AUTHOR: TIMURDOC PHYSICIAN: REFERRING PHYSICIAN: COLEEN PATEL MD DATE OF SERVICE: 06/20/19 Discharge Plan Patient Name: FLASH CHANG Facility: [facility]:[place] : 1930 Planned Disposition: Hospice Medical Facility Anticipated Discharge Date: 06/18/19 Discharge Date: 06/18/2019 Expected LOS: 4 Initial Reviewer: [email or web address] Initial Review Date: 06/14/2019 Generated: 06/20/19 9:16 am Comments DCP- Discharge Planning Updated by [email or web address]: Jeanine Gonzalez on 06/18/19 4:[address] CM met with patients son Mannie CANTU) who stated his mother was not doing well and hs is wanting to keep her on comfort measures. He no longer wants to have her on the BIPAP. CM asked if he wanted to consider hospice services. He asked if she could stay on the IV antibiotics and tube feedings. CM informed him that I could have a hospice rep come talk with him and discuss / answer any questions he has. CM did inform him that most cases the antibiotics & tube feeds are stopped but that was something hospice would have to answer for him. GLENN form presented, explained, and signed by Mannie for [facility] rep to come and answer questions for the family that is here. KARIS spoke to Virgil Maddox with [facility] who stated he could come this evening around 1814 to meet with the family. GLENN form placed on chart. Jeanine Gonzalez RN, CCM DCP- Discharge Planning Updated by [email or web address]: Jeanine Gonzalez on 06/14/19 12:[address] DC PLAN: [facility] DC NEEDS: [facility] and 12 hours private pd caregivers. KARIS met with patient and her son, Mannie CANTU) to complete initial dc planning assessment. CM educated them on the CM role and verbal consent given by Mannie to complete assessment. CM verified patient's address, phone number, and emergency contact phone numbers. [facility]. She also has 12 hours a day private caregiver. Mannie reports after discharge 4 days ago she had [facility]. Nursing and PT has made visit and OT was to come make visit today. He stated he has notified Alda of the hospital admission. GLENN signed by Mannie for resumption of [facility] services at discharge. She is currently using a wheelchair for all ambulation. She has oxygen she uses at HS and portability. He reports her O2 sats have been very good and she does not use the portable O2 during the day. Mannie stated over the past two days patient has not taken in adequate po intake and her breathing just kept getting worse. Mannie reports the [facility] will [facility] dc and will resume [facility] and the 12 hours of cg services daily. Mannie stated he or the [facility] will transport her home at time of discharge. CM will continue to follow and will assist as needed with dc plans/needs. DCPIA - Discharge Planning Initial Assessment Updated by [email or web address]: Jeanine Gonzalez on 06/14/19 1:51 pm * Is the patient Alert and Oriented? No * How many steps to enter\exit or inside your home? None * PCP Using [facility] [facility] - recently moved here. Not established with a pcp. * Pharmacy [facility] * Preadmission Environment Assisted Living * Facility Name [facility] * ADLs Total Dependent * Equipment Oxygen Rolling Walker Wheelchair * Other Equipment Bed/Chair bound * List name and contact numbers for known caregivers / representatives who currently or will assist patient after discharge: Mannie Chang - elmer POA - [phone] * Verbal permission to speak to the caregivers and representatives has been obtained from the patient. Yes * Community resources currently utilized Home Health * Please name any agencies selected above. [facility] signed by Mannie in the ER for resumption. * Additional services required to return to the preadmission environment? No * Can the patient safely return to the preadmission environment? Yes * Has this patient been hospitalized within the prior 30 days at any hospital? Yes Last DP export: 06/18/19 4:48 p Patient Name: FLASH CHANG Page 10264 at 0817 All edits/amendments must be made on the electronic document DICTATION DATE: 06/20/19815 TELETYPE TELEGRAPHER: SERGEI 06/20/19815 RPT#: [id number] DC DATE:06/18/19 STATUS: DIS IN [facility] [address] [place] [address] END OF REPORT
== END 2019-06-18 23:31 | disposition hospice, inpatient (51) | DRG 193 ==
LOC: D.ER 10:29 → D.ICU 13:31 → D.M2 13:31 → D.ICU 06-15 03:36 → D.M2 06-17 16:49
PROVIDERS: Family Medicine; ADMIT Internal Medicine Nephrology; ATTEND Internal Medicine Nephrology
PROC: 5A09357 Assistance with Respiratory Ventilation, Less than 24 Consecutive Hours, Continuous Positive Airway Pressure (ICD-10-PCS; principal; 2019-06-15)
DX: J18.1 Lobar pneumonia, unspecified organism (principal); J96.01 Acute respiratory failure with hypoxia; I50.23 Acute on chronic systolic (congestive) heart failure; G93.41 Metabolic encephalopathy; E43 Unspecified severe protein-calorie malnutrition; E87.0 Hyperosmolality and hypernatremia; Z68.1 Body mass index [BMI] 19.9 or less, adult; D64.9 Anemia, unspecified; I11.0 Hypertensive heart disease with heart failure; R53.81 Other malaise; D72.819 Decreased white blood cell count, unspecified; F03.90 Unspecified dementia, unspecified severity, without behavioral disturbance, psychotic disturbance, mood disturbance, and anxiety; I48.91 Unspecified atrial fibrillation; J43.9 Emphysema, unspecified; R91.1 Solitary pulmonary nodule

== ENCOUNTER 2019-06-18 23:40 | Inpatient (IN) | payer OTHER ==
[~2019-06-18] VITALS: Ht 170.2 cm; Wt 47.2 kg
[~2019-06-18 23:40] MED LIST changes: +ACETAMINOPHEN325 MG PO; +ATROVENT 0.02%2.5 ML UPD; +CALMOSEPTINE OI71 GM TOPICAL; +GUAIFENESI100 MG/5 M PO; +KLONOPIN0.5 MG PO; +PRIMSOL50 MG/5 ML PO
[2019-06-19] VITALS: BP 100/51
--- NOTE | 2019-06-19 00:46 | NUR ---
PT ADMITTED TO [facility]. DOBHOFF, CARDIZEM DRIP AND TELEMETRY DC'D PER ORDERS. IV TORFA WITH NS AT 30CC/HR AND MORPHINE ELECTRONIC ORGAN MECHANIC CONTINUOUS AT 0.5MG/HR. 2MG MORPHINE BOLUS GIVEN WHEN INITIATED. O2 100% NON-REBREATHER. COARSE RHONCHI NOTED IN BILAT LUNG CANCHOLA. VSS. MEPILEX TO COCCYX CLEAN, DRY AND INTACT. PEREA DRAINING YELLOW URINE. PT ON AIR OVERLAY. HEEL PROTECTORS I USE. FAMILY AT BEDSIDE. PT LETHARGIC, AROUSES TO PAINFUL STIMULI.
[2019-06-19 01:09] VITALS: BP 100/51; BMI 16.3
--- NOTE | 2019-06-19 01:46 | NUR ---
PT RESTING WITH EYES CLOSED. RESP EVEN AND REGULAR. FAMILY AT BEDSIDE.
--- NOTE | 2019-06-19 04:13 | NUR ---
PT RSTING WITH EYES CLOSED. RESP DEEP, EVEN AND REGULAR. REPOSITIONED IN BED FOR COMFORT. SR UP X2, CALL LIGHT WITHIN REACH AND FAMILY AT BEDSIDE.
--- NOTE | 2019-06-19 06:16 | NUR ---
REPOSITIONED ONTO R SIDE. PT OPENS EYES TO PHYSICAL STIMULI THEN QUICKLY CLOSES THEM. RESP 16 AND REGULAR. FAMILY AT BEDSIDE.
[2019-06-19 07:30] VITALS: BP 131/63
--- NOTE | 2019-06-19 08:00 | NUR ---
PT RESTING IN BED, FAMILY AT BEDSIDE, NO DISTRESS OR DISCOMFORT NOTED AT THIS TIME, WILL CONT TO FOLLOW POC
--- NOTE | 2019-06-19 10:00 | NUR ---
PT RESTING IN BED, FAMILY AT BEDSIDE. NO SIGNS OF DISTRESS NOTED AT THIS TIME, WILL CONT TO FOLLOW POC
--- NOTE | 2019-06-19 12:00 | NUR ---
PT RESTING IN BED, NO SIGNS OF DISTRESS NOTED. FAMILY AT BEDSIDE, WILL CONT TO FOLLOW POC
--- NOTE | 2019-06-19 14:00 | NUR ---
PT RESTING COMFORTABLE, NO SIGNS OF PAIN/DISTRESS NOTED. FAMILY AT BEDSIDE. WILL CONT TO FOLLOW POC
--- NOTE | 2019-06-19 16:00 | NUR ---
PT RESTING IN BED, FAMILY AT BEDSIDE. NO SIGNS OF PAIN/DISTRESS NOTED AT THIS TIME. WILL CONT TO FOLLOW POC
--- NOTE | 2019-06-19 18:27 | NUR ---
PT RESTING IN BED, FAMILY AT BEDSIDE, NO SIGNS OF DISTRESS/PAIN NOTED. WILL CONT TO FOLLOW POC
--- NOTE | 2019-06-19 20:01 | NUR ---
INITIAL ROUNDS COMPLETED AT 1915 HRS. PT RESTING WITH EYES CLOSED. RESP LABORED AT TIMES. FAMILY AT BEDSIDE. ASSESSMENT COMPLETED AT 1930 HRS. IV TO RFA REDRESSED. NS AT 30CC/HR AND MORPHINE CONTINUOUS INFUSIN AT 1/2MG/HR. O2 100% NON-RBREATHER. LUNGS DIMINISHED THROUGHOUT LUNG CANCHOLA. HYPOACTIVE BS. MEPILEX NOTED TO COCCYX. BILAT HEELS IN HEEL PROTECTORS. FAMILY STATES NOT TO TURN PT. PEREA DRAINING MINIMAL YELLOW URINE. SR UP X2, CALL LIGHT WITHIN REACH.
--- NOTE | 2019-06-19 22:04 | NUR ---
NO CHANGE IN STATUS NOTED. FAMILY AT BEDSIDE.
--- NOTE | 2019-06-19 23:45 | NUR ---
NO CHANGE IN STATUS NOTED. FAMILY AT BEDSIDE.
--- NOTE | 2019-06-20 02:03 | NUR ---
NO CHANGE IN STATUS NOTED. FAMILY AT BEDSIDE.
--- NOTE | 2019-06-20 02:42 | NUR ---
ATICAN 1MG SIVP GIVEN FOR SIGNS OF DISTRESS. FAMILY AT BEDSIDE.
--- NOTE | 2019-06-20 04:40 | NUR ---
ATTEMPTED ORAL CARE.PPT REFUSED TO OPEN MOUTH. MOISTURIZER PALCED ON LIPS. NO CHANGE IN STATUS NOTED. FAMILY AT BEDSIDE.
--- NOTE | 2019-06-20 05:40 | NUR ---
NO CHANGES NOTED DURING SHIFT. FAMILY STATED IV ATIVAN DECREASED HER MOANING. WILL CONTINUE TO MONITOR.
--- NOTE | 2019-06-20 07:47 | NUR ---
PATIENT IS RESTING QUIETLY AT THIS TIME. SHE WAS JUST MOVED TO THIS ROOM FROM 19. FAMILY AT BEDSIDE. FAMILY REQUEST THAT WE ALLOW HER PEACE AN QUIET MUCH POSSIBLE. IV INFUSING ORDERED.
[2019-06-20 08:30] VITALS: BP 155/86
[2019-06-20 11:04] VITALS: Ht 170.2 cm; Wt 47.2 kg
--- NOTE | 2019-06-20 15:59 | NUR ---
PATIENT IS RESTING QUIETLY AT THIS ITME. FAMILY AT BEDSIDE. FAMILY REQUESTED TO COMB PATIENT HAIR, ASSISTED FAMILY IN COMBING HAIR GENTLY TO ONE SIDE. PATIETN DOES NOT RESPOND WELL TO ANY MOVEMENT. SHE DOES GRIMACE AND TENSE. FAMILY HAS REQUESTED THAT WE DO NOT MOVE THE PATIENT.
--- NOTE | 2019-06-20 19:30 | NUR ---
PATIENT RESTING QUIETLY IN BED. EYES CLOSED, CHEST RISING AND FALLING.
[2019-06-20 20:00] VITALS: BP 167/78
--- NOTE | 2019-06-20 22:00 | NUR ---
PATIENT LAYING IN BED, EYES CLOSED, CHEST RISING AND FALLING. PATIENT'S FAMILY REQUESTED FOR PATIENT TO NO LONGER HAVE VITAL SIGNS TAKEN. PATIENT'S FAMILY STATED "THEY ARE JUST NUMBERS AT THIS POINT AND WHEN VITAL SIGNS WERE TAKEN, PATIENT SEEMED UNCOMFORTABLE."
--- NOTE | 2019-06-21 03:25 | NUR ---
I have reviewed this patient and I concur with the Shift Assessment completed by the Licensed Practical Nurse today this shift.
--- NOTE | 2019-06-21 07:15 | NUR ---
REC'D IN BED WITH EYE CLOSED. RESP EVEN AND UNLABORED WITH O2 IN USE VIA NRB @ 15 L/M. NO DISTRESS OR DISCOMFORT NOTED. REMAIN ON [facility] PER ORDERS. FAMILY DOESN'T WANT PT TO BE TURN OR VITALS TAKEN. JUST COMFORT CARE ONLY. C/L AND FAMILY AT BEDSIDE.
--- NOTE | 2019-06-21 08:33 | MORECARE ---
CASE MANAGEMENT DISCHARGE SUMMARY PATIENT: FLASH JOSE UNIT: [id number] ADM DATE: 06/18/19 AGE: 88 : [birth year] SEX: F ROOM/BED: D.2101 AUTHOR: PAM DING PHYSICIAN: REFERRING PHYSICIAN: CORI RUIZ MD DATE OF SERVICE: 06/21/19 Discharge Plan Patient Name: FLASH JOSE Facility: [facility]:[place] : 1930 Planned Disposition: Anticipated Discharge Date: Discharge Date: Expected LOS: Initial Reviewer: [email or web address] Initial Review Date: 06/21/2019 Generated: 06/21/19 9:32 am Comments DCP- Discharge Planning Updated by [email or web address]: Yamil Mc on 06/21/19 7:[address] Patient Name: FLASH JOSE Admission Status: Elective Accout number: [id number] Admission Date: 06-18-2019 : 1930 Admission Diagnosis: Attending: CORI RUIZ Current LOS: 3 Anticipated DC Date: Planned Disposition: Primary Insurance: [facility] Discharge Planning Comments: CM REVIEWED CHART, PT IS ADMITTED TO [facility]. ALL CASE MANAGEMENT SERVICES WILL BE PROVIDED BY [facility] WITH NO FURTHER NEEDS FROM HOSPITAL . Area Director Of Home Health Sales: Yamil Mc Patient Name: FLASH JOSE Page [phone] at 0833 All edits/amendments must be made on the electronic document DICTATION DATE: 06/21/19831 CUSTOMER BUSINESS MANAGER: SERGEI 06/21/19831 RPT#: [id number] DC DATE: STATUS: ADM IN [facility] [address] [place] [address] END OF REPORT
--- NOTE | 2019-06-21 14:11 | NUR ---
I have reviewed this patient and I concur with the Shift Assessment completed by the Licensed Practical Nurse today this shift.
--- NOTE | 2019-06-21 18:59 | NUR ---
DR. RUIZ SOLUTION STRATEGIST HER REC'D NEW ORDERS FOR BOLULS 1 MG EVERY 6 HRS PRN. PHARMACY WAS NOTIFIED OF NEW TO ADD TO CURRENT MOPRHINE ORDER. 1 MG BOLUS GIVEN AT THIS TIME.
--- NOTE | 2019-06-22 07:15 | NUR ---
PT RESTING IN BED, FAMILY AT BEDSIDE, NO DISTRESS NOTED AT THIS TIME, ELECTRO MECHANICAL TECHNOLOGIST INFUSING. WILL CONT TO FOLLOW POC
--- NOTE | 2019-06-22 09:30 | NUR ---
ROSALINA VIERA OPERATION MANAGER HERE AND ASKED NURSE TO INCREASE MORPHINE SALES OPERATIONS DOSE FROM 0.5MG CONT TO 1MG/HR CONT. SECOND NURSE STEFANIA PRICE RN WITNESSED SALES OPERATIONS INCREASE. FAMILY AT BEDSIDE. PT RESTING PEACEFULLY. WILL CONT TO FOLLOW POC
--- NOTE | 2019-06-22 10:45 | NUR ---
FAMILY ALERTED NURSE THAT PIV IS LEAKING. UPON ASSESSMENT, PIV TO RIGHT FA HAD INFILTRATED. ATTEMPTED PIV X2 AND FAILED. PAGED VASCULAR ACCESS NURSE. VASCULAR ACCESS NURSE ADEEL INSERTED A 22G PIV TO PT LEFT HAND X1 ATTEMPT. PT TOLERATED WELL. BASEBALL COACH INFUSION STARTED IN LEFT HAND. FAMILY AT BEDSIDE, WILL CONT TO FOLLOW POC
--- NOTE | 2019-06-22 12:00 | NUR ---
PT RESTING PEACEFULLY IN BED, FAMILY AT BEDSIDE. DENIES ANY NEEDS AT THIS TIME, WILL CONT TO FOLLOW POC
--- NOTE | 2019-06-22 17:14 | NUR ---
FAMILY ASKED NURSE TO DECREASE PT FROM A NONREBREATHER MASK TO A NC AND TO ASK MD TO INCREASE MORPHINE DOSE. PAGED [facility] WHO CALLED . PER , PLACE PT ON HIGH-JAYLYN NC AT 8-10L/MIN AND KEEP CURRENT ATTENDANT CHILD ACTIVITY MORPHINE CONTINUOUS DOSE AT 1MG/HR BUT ADD A BOLUS DOSE OF MORPHINE 2MG QHR PRN. FAMILY NOTIFIED AND PLACED PT ON HIGH-JAYLYN CANNULA AT 10L/MIN. SPOKE WITH FAMILY ABOUT END OF LIFE ABD BREATHING. PT FAMILY VERBALIZED UNDERSTANDING. WILL CONT TO FOLLOW POC
--- NOTE | 2019-06-22 19:30 | NUR ---
PT CARE ASSUMED. PT IN BED RR EVEN AND UNLABORED. ON 10L O2 HF. FAMILY PRESENT AT BEDSIDE. NO NEEDS EXPRESSED. WILL CTM.
[2019-06-23 05:07] VITALS: BP 99/44
--- NOTE | 2019-06-23 07:30 | NUR ---
PT IS POSITIONED ON LEFT SIDE AND RESTING WITH EYES CLOSED. RESP UNLABORED WITH 02 ON 8L/M HIGH FLOW NC. FAMILY AT BEDSIDE AND REQUESTS PT NOT BE DISTURBED FOR NURSING ASSESSMENT. IV IS PATENT TO LEFT FOREARM WITH NS INFUSING AT 100CC/HR AND PEN RULER OPERATOR DELIVERING 1MG/HR CONTINUOUS. WILL CONTINUE POC.
--- NOTE | 2019-06-23 16:56 | NUR ---
HOSPICE CARE CONT. FAMILY MEMBER AT BS. CALL LIGHT IN REACH. WILL MONITOR NEEDS.
--- NOTE | 2019-06-23 19:00 | NUR ---
PT CARE ASSUMED. BEDSIDE SHIFT REPORT COMPLETE. PT CONTINUES ON HOSPICE CARE. FAMILY PRESENT AT BEDSIDE. NO NEEDS EXPRESSED. WILL CTM.
--- NOTE | 2019-06-23 21:16 | NUR ---
PT EXPRESSING S/S OF PAIN. PROVIDED NURSE BOLUS DOSE PER ORDERS. NO FURTHER NEEDS EXPRESSED. FAMILY REMAINS AT BEDSIDE. WILL CTM.
--- NOTE | 2019-06-23 23:00 | NUR ---
PTS DAUGHTER IN LAW CALLED FOR ASSISTANCE. NO RR NOTED. NO PULSE PRESENT. NOTIFIED TERA CASEY RN FROM [facility].
--- NOTE | 2019-06-24 06:46 | MORECARE ---
CASE MANAGEMENT DISCHARGE SUMMARY PATIENT: FLASH JOSE UNIT: [id number] ADM DATE: 06/18/19 AGE: 88 : [birth year] SEX: F ROOM/BED: D.2101 AUTHOR: PAM DING PHYSICIAN: REFERRING PHYSICIAN: CORI RUIZ MD DATE OF SERVICE: 06/24/19 Discharge Plan Patient Name: FLASH JOSE Facility: [facility]:[place] : 1930 Planned Disposition: Anticipated Discharge Date: 06/23/19 Discharge Date: 06/23/2019 Expected LOS: 5 Initial Reviewer: [email or web address] Initial Review Date: 06/21/2019 Generated: 06/24/19 7:46 am Comments DCP- Discharge Planning Updated by [email or web address]: Yamil Mc on 06/21/19 7:[address] Patient Name: FLASH JOSE Admission Status: Elective Accout number: [id number] Admission Date: 06-18-2019 : 1930 Admission Diagnosis: Attending: CORI RUIZ Current LOS: 3 Anticipated DC Date: Planned Disposition: Primary Insurance: [facility] Discharge Planning Comments: CM REVIEWED CHART, PT IS ADMITTED TO [facility]. ALL CASE MANAGEMENT SERVICES WILL BE PROVIDED BY [facility] WITH NO FURTHER NEEDS FROM HOSPITAL . Fire Coordinator: Yamil Mc Last DP export: 06/21/19 7:33 a Patient Name: FLASH JOSE Page [phone] at 0646 All edits/amendments must be made on the electronic document DICTATION DATE: 06/24/1946 PROFESSOR OF MECHANICAL ENGINEERING: SERGEI 06/24/1946 RPT#: [id number] DC DATE:06/23/19 STATUS: DIS IN [facility] [address] [place] [address] END OF REPORT
== END 2019-06-23 23:55 | DRG 951 ==
LOC: D.M2 23:40
PROVIDERS: ADMIT Legal Medicine; ATTEND Legal Medicine
DX: Z51.5 Encounter for palliative care (principal)